=== PATIENT | male | born 1970 | race Caucasian/White ===

== ENCOUNTER 2019-05-20 07:45 | Inpatient (IN) | payer MEDICARE, SELFPAY ==
[2019-05-20] VITALS (8 sets, daily range): BP systolic 103–130; BP diastolic 66–79; PULSE 84–117; RESP 12–18; TEMP 36.6–37.4; O2SAT 96–99; BMI 22.3; BMI 20.9; BMI 21.0
--- NOTE | 2019-05-20 08:03 | CT_ITS ---
STUDY: CT ABDOMEN AND PELVIS WITHOUT CONTRAST REASON FOR EXAM: Male, 48 years old. Nausea, vomiting, diarrhea, cramping, elevated WBC. No prior abdomen surgery. Elevated creatinine. RADIATION DOSAGE (If Supplied By Facility): CTDIvol = ( 6.04 ) mGy, DLP = ( 309.57 ) mGycm TECHNIQUE: Transaxial images were obtained from the dome of the diaphragm to the symphysis pubis with oral contrast, and without intravenous contrast. Sagittal and coronal images were reconstructed. Individualized dose optimization techniques were used for this CT. COMPARISON: None. FINDINGS: Mild degree of increased markings at the right lung base suggestive of atelectasis. The visualized portions of the heart are within normal limits. There are several scattered well-defined hypodensities throughout both the right and left lobes of the liver suggestive of a cyst. Mild degree of increased attenuation is seen along the dependent portion of the gallbladder. This is suggestive of either tiny layering gallstones versus sludge. Normal spleen. Normal pancreas. Normal bilateral adrenal glands. Normal right kidney. Normal left kidney. Normal visualized stomach. Mildly dilated small bowel loops. Increased markings are seen in the mesenteric fat in the right lower quadrant and pelvis. The small bowel loops appear to be thickened and atelectasis at that site. There is also evidence of a 5.1 mm calcific density in the midpelvis. This may represent an appendicolith within a distended appendix. The differential diagnosis to consider should include the inflammatory bowel disease versus appendicitis. Delayed imaging of the pelvis is recommended. Normal colon. The appendix is visualized and appears normal. Normal abdominal aorta. Normal inferior vena cava. Normal retroperitoneum. Normal urinary bladder. There are prostatic calcifications. Normal abdominal wall. There are degenerative changes of the visualized lumbar spine. CT/Abdomen/Pelvis without Cont IMPRESSION: Findings in the right lower quadrant as described. The differential diagnosis should include appendicitis versus inflammatory bowel disease. A delayed CT scan to assess contrast migration is recommended. Electronically Signed: Chuy Galvan, at 10:02 EDT , Service support ,
--- NOTE | 2019-05-20 08:05 | ED.DCSUM_ITS ---
History of Present Illness Chief Complaint: Abd Pain Informant: Patient Narrative: Patient presents the emergency department with 3 days of diffuse abdominal cramping that is now pain.. He notes some nausea and vomiting. He denies diarrhea but states he has the runs. I asked him what the difference to him is. He tells me that the runs is when it is just water. He denies any fevers but does note sweats and chills. No blood in the stool or vomit. He states he has been experiencing muscle cramps in his arms and legs.. Past Medical History - Allergies and Home Meds Allergies/Adverse Reactions: Allergies No Known Allergies Allergy (Verified 05/20/19 07:50) Smoking Status: Current some day smoker Review of Systems General: Denies: Chills, Fever, Sweats Eyes: Denies: Visual changes - bilaterally, Diplopia ENT: Denies: Rhinorrhea, Sore throat Cardiovascular: Denies: Chest pain, Palpitations Respiratory: Denies: Dyspnea, Cough, Dyspnea on exertion Gastrointestinal: Reports: Abdominal pain, Nausea, Vomiting, Diarrhea. Denies: Melena, Hematochezia Genitourinary: Denies: Dysuria, Hematuria, Frequency Musculoskeletal: Reports: - - arm and leg muscle cramps. Denies: Back pain, Extremity Pain Skin: Denies: Rash, Wounds Neurological: Denies: Headache, Weakness, Numbness Physical Exam Vital Signs/Narrative: Vital Signs Temp Pulse Resp BP Pulse Ox 05/20/19 07:47 98 F 117 H 18 103/66 99 General: Well nourished, Well developed, No Acute Distress Head: Normocephalic, Atraumatic Eyes: Perrl, EOMI ENT: Moist mucous membranes, No rhinorrhea Neck: Supple, Nontender Cardiovascular: Regular rate, Regular rhythm, No murmurs Respiratory: No distress, CTA bilaterally, Chest nontender Abdomen: Soft, Nondistended, Normal bowel sounds, Tender - Mostly in the right lower quadrant suprapubic region, Guarding Back: Nontender, Normal Inspection Extremities: Nontender, No edema Skin: Normal color, No rash Neurological: Alert, Oriented x3, Cranial nerves II-XII grossly intact, Normal Strength, Normal Sensation Psychological: Normal affect, Normal Mood Diagnostic/Tx/Re-eval - Medical Decision Making Patient has a significant elevated white count of 21. He is in acute renal failure with a creatinine of [address] the pelvis done with oral contrast but not IV contrast. This was repeated with delayed films so we can try to add better identify the appendix. His history and CT to me is more consistent with an inflammatory bowel disease but I did discuss the case with on-call surgery. Plan is medical admission. He will be administered Zosyn after cultures as he had did have 4+ bacteria in the urine. ED Disposition - Plan for ED Patient: Disposition: Acute Care Hospital [facility] Diagnosis: Acute renal failure, Inflammatory bowel disease, Hyponatremia, Bacteria in urine
[2019-05-20 08:30] LABS: Absolute Lymphocyte Count 0.63 X10^3/uL (0.83-4.51); Absolute Neutrophil Count 19.5 X10^3/uL (2.0-7.7); Basophil# 0.03 X10^3/uL; Basophil% 0.1 % (0-1); Eosinophil# 0.01 X10^3/uL; Hematocrit 49.7 % (40-54); Hemoglobin 16.6 g/dL (13.0-16.5); Lymphocyte # 0.63 X10^3/ul (4.0); Lymphocyte % 2.9 % (19-41); Mean Corp Hgb Conc 33.4 g/dL (32-36); Mean Corpuscular Hgb 29.5 pg (27.0-32.0); Mean Corpuscular Volume 88.4 fL (80-94); Mean Platelet Vol. 9.6 fl (6.2-12.0); Monocyte# 1.23 X10^3/uL; Monocyte% 5.7 % (0-10); NRBC Flagged by Analyzer 0 % (0-5); Neutrophil # 19.51 X10^3/uL (2.7-7.7); Neutrophil % 90.7 % (47-70); Platelet Count 214 K/mm3 (150-450); RBC Distribution Width CV 13.3 % (11.6-14.6); RBC Distribution Width SD 43.5 fl (35.1-43.9); Red Blood Count 5.62 M/mm3 (4.6-6.2); White Blood Count 21.5 K/mm3 (4.4-11.0)
[2019-05-20] MEDS: 0.9% Normal Saline 1,000 ML 1000 ML IV (08:33)
[2019-05-20] MEDS: Morphine 4 MG/ML Syringe IV (08:33)
[2019-05-20] MEDS: Ondansetron 4 MG/2 ML Vial IV ×4 (08:33→23:39)
[2019-05-20 08:45] LABS: ALB/GLOB Ratio 0.8 RATIO (0.9-2.4); AST(SGOT) 24 U/L (15-37); Alanine Aminotransfer ALT/SGPT 27 U/L (16-61); Albumin, Serum 4.6 g/dL (3.2-5.0); Alkaline Phosphatase 84 U/L (45-117); Anion Gap 12 (5-15); BUN 42 mg/dL (7-18); BUN/Creat Ratio 10.3 RATIO (10-20); Calcium,Total 10.1 mg/dL (8.5-10.1); Chloride 93 mmol/L (98-107); Creatinine, Serum 4.08 mg/dL (0.70-1.30); EST Glomerular Filtration Rate 17 mL/min (>60); Est Glom Filt Rate - Afr Amer 20 mL/min (>60); Estimated Creatinine Clearance 22.73 ml/min; Globulin 5.7 g/dL (2.2-4.2); Glucose 137 mg/dL (74-106); Lipase 42 U/L (73-393); Potassium 3.3 mmol/L (3.5-5.1); Protein, Total 10.3 g/dL (6.4-8.2); Sodium Level 129 mmol/L (136-145)
[2019-05-20] MEDS: 0.9% Normal Saline 1,000 ML 250 ML IV ×2 (09:33→12:00)
[2019-05-20 10:25] LABS: Red Blood Cells-Urine 0 SEEN /hpf (0-5)
[2019-05-20 10:28] LABS: Color, Urine Yellow (Yellow); Glucose, Dipstick Normal (Normal); Ketone-Dipstick 5 mg/dl (Negative); Leukocyte Esterase-Dipstick 25 /ul (Negative); Nitrite-Dipstick Negative (Negative); Occult Blood-Urine 150 /ul (Negative); Protein-Dipstick 30 mg/dl (Negative); Specific Gravity, Urine 1.025 (1.002-1.030); Urine Clarity Cloudy (Clear); Urine Urobilinogen Normal (Normal)
[2019-05-20 10:46] LABS: Urine Bilirubin Dipstick 1 mg/dL (Negative)
[2019-05-20 10:49] LABS: Squamous Epithelial Cells - UA 0-5 SEEN /hpf (0-5); White Blood Cells 0-5 SEEN /hpf (0-5)
[2019-05-20 10:50] LABS: Hyaline Cast 10-25 SEEN /lpf (0-5)
[2019-05-20 10:51] LABS: Bacteria 4+ /hpf (None Seen); Fine Granular Cast- Urine 0-5 SEEN /lpf (0-5); Mucous, Urine 3+ /hpf (<or=2+)
--- NOTE | 2019-05-20 11:00 | CT_ITS ---
STUDY: CT PELVIS WITH CONTRAST REASON FOR EXAM: Male, 48 years old. ABDOMEN PAIN/DELAYS RADIATION DOSAGE (If Supplied By Facility): CTDIvol = ( 6.28 ) mGy, DLP = ( 191.27 ) mGycm TECHNIQUE: Transaxial imaging of the pelvis was performed without oral contrast. Oral and amp; IV Gastrografin and amp; was administered intravenously. Individualized dose optimization techniques were used for this CT. COMPARISON: Comparison is made with the prior examination and earlier today. FINDINGS: Normal urinary bladder. With again, the visualized small bowel loops are slightly dilated and distended. The small bowel loops seen in the right lower quadrant as well as in the pelvis have a thickened wall. They appear edematous. Once again, focal calcification is seen in the mid pelvis. This may represent an appendicolith. Once again, the differential diagnosis to consider should include the inflammatory bowel disease versus appendicitis. Normal visualized colon. There is no pelvic fluid. There is no pelvic lymphadenopathy or mass lesion. Normal visualized pelvic arteries. Normal abdominal wall. Normal osseous structures. CT/Limited or Localized F/U CT IMPRESSION: There is evidence of a small bowel dilatation as well as thickening of the mucosa and the small bowel wall in several small bowel loops in the pelvis and right lower quadrant with increased markings in the surrounding peritoneal fat. The differential diagnosis to consider should include inflammatory bowel disease such as Crohn versus appendicitis. Electronically Signed: Chuy Galvan, at 11:21 EDT , Service support ,
--- NOTE | 2019-05-20 11:51 | NURSING ---
DR ANDUJAR FOR DR FLORES
--- NOTE | 2019-05-20 12:32 | PCM.CONS.GEN ---
Problem List (1) Abdominal pain Status: Acute Qualifiers: Abdominal location: generalized Qualified Code(s): R10.84 - Generalized abdominal pain (2) Tobacco abuse Status: Acute (3) Chronic anxiety Status: Chronic (4) COPD (chronic obstructive pulmonary disease) Status: Chronic Qualifiers: Emphysema type: unspecified Reason for Consult Date of Consultation: 05/20/19 History of Present Illness: The patient is a 48 year old M who presents to the emergency room with a 4-day history of abdominal pain. States he has not been eating or drinking. It was a mid abdomen generalized pain followed quickly by fever and chills 4 days ago. The pain is persisted. He is only had small amount of liquidy stool. He has not had any previous abdominal surgery. He denies family history of inflammatory bowel disease. White blood cell count 21.5 with a hemoglobin elevated 16.6 and hematocrit of 49.7 with a platelet count of 214,000. 90% neutrophils. Sodium is low at 129. Potassium is low at 3.3. Chloride is low at 93. BUN is elevated at 42 with a creatinine of 4.08. Estimated GFR of 17. Liver function tests are normal except for total protein of 10.3. Albumin is 4.6. Lipase is 42. Urine is yellow cloudy with spec gravity of 30. A CT scan with oral contrast and delayed imaging was obtained. There is evidence of small bowel dilatation as well as thickening of the mucosa in several small bowel loops in the pelvis and right lower quadrant with increased markings in the surrounding peritoneal fat. Differential diagnosis was offered to suggest inflammatory bowel disease such as Crohn's. Because there is also felt to be an appendicolith although no distinct other findings of the appendix or appendicitis it was felt that appendicitis should be excluded. Past Medical History Past Medical History (Chronic Problems): Chronic Problems Chronic anxiety (Chronic) COPD (chronic obstructive pulmonary disease) (Chronic) Allergies No Known Allergies Allergy (Verified 05/20/19 07:50) Home Medications: Ambulatory Orders Medication Instructions Recorded Amitriptyline HCl 75 mg PO QHS PRN 05/20/19 Clonazepam [Klonopin] 1 mg PO Q8H PRN 05/20/19 Duloxetine HCl 30 mg PO DAILY 05/20/19 Surgical History: no surgical history Smoking Status: Current every day smoker Review of Systems Constitutional: Reports: Anorexia, Chills, Fever, Night Sweats, Malaise HEENT: Denies: Difficulty Swallowing Respiratory: Reports: Cough, - - Chronic dry cough. Denies: Shortness of Breath Gastrointestinal: Reports: Abdominal Pain, Diarrhea. Denies: Melena Psychiatric: Reports: Anxiety Patient Problems: Active and Suspected Problems Acute renal failure (Acute) Inflammatory bowel disease (Acute) Hyponatremia (Acute) Bacteria in urine (Acute) Abdominal pain (Acute) Tobacco abuse (Acute) - Physical Exam Vitals/I&O's: Vital Signs Temp Pulse Resp BP Pulse Ox 97.8 F 105 H 15 130/73 H 97 05/20/19 12:19 05/20/19 12:19 05/20/19 12:19 05/20/19 12:19 05/20/19 12:19 Oxygen Delivery Method Room Air Weight: 160 lb Body Mass Index (BMI) 22.3 Intake and Output for Last 24 Hours 05/18/19 05/19/19 05/20/19 23:59 23:59 23:59 Intake Total 1612.5 / 1612.5 Balance 1612.5 / 1612.5 General: Alert, Oriented x3, Cooperative, No apparent distress HEENT: Atraumatic Oral: Dry Mucosa Lungs: - - Increased anterior posterior diameter, diminished respiratory excursion, scattered infrequent wheeze Cardiovascular: Regular rate, Regular Rhythm Abdomen: Bowel Sounds Not Present, Distended, Tender Extremities: No Calf Tenderness Psych/Mental Status: Normal Affect Laboratory Results 05/20/19 08:20: WBC 21.5 H, RBC 5.62, Hgb 16.6 H, Hct 49.7, MCV 88.4, MCH 29.5, MCHC 33.4, RDW Std Deviation 43.5, RDW Coeff of Manuela 13.3, Plt Count 214, MPV 9.6, Immature Gran % (Auto) 0.600, Neut % (Auto) 90.7 H, Lymph % (Auto) 2.9 L, [place] % (Auto) 5.7, Eos % (Auto) 0.0, Baso % (Auto) 0.1, Absolute Neuts (auto) 19.5 H, Absolute Lymphs (auto) 0.63 L, Nucleated RBC % 0 05/20/19 08:20: Sodium 129 L, Potassium 3.3 L, Chloride 93 L, Carbon Dioxide 24.0, Anion Gap 12, BUN 42 H, Creatinine 4.08 H, Estim Creat Clear Calc 22.73, Est GFR (MDRD) Af Amer 20 L, Est GFR (MDRD) Non-Af 17 L, BUN/Creatinine Ratio 10.3, Glucose 137 H, Calcium 10.1, Total Bilirubin 0.70, AST 24, ALT 27, Alkaline Phosphatase 84, Total Protein 10.3 H, Albumin 4.6, Globulin 5.7 H, Albumin/Globulin Ratio 0.8 L, Lipase 42 L 05/20/19 10:20: Urine Color Yellow, Urine Clarity Cloudy, Urine pH 5.0, Ur Specific [place] 1.025, Urine Protein 30 H, Urine Glucose (UA) Normal, Urine Ketones 5 H, Urine Occult Blood 150 H, Urine Nitrite Negative, Urine Bilirubin 1 H, Urine Urobilinogen Normal, Ur Leukocyte Esterase 25 H, Urine RBC 0 SEEN, Urine WBC 0-5 SEEN, Ur Squamous Epith Cells 0-5 SEEN, Urine Bacteria 4+, Hyaline Casts 10-25 SEEN, Fine Granular Casts 0-5 SEEN, Urine Mucus 3+ Current Medications Sodium Chloride () 1,000 mls @ 250 mls/hr IV .Q4H [facility] Last Admin: 05/20/19 12:00 Dose: 250 mls/hr Documented by: Assessment/Plan All Active Problems Acute renal failure (Acute) Inflammatory bowel disease (Acute) Hyponatremia (Acute) Bacteria in urine (Acute) Abdominal pain (Acute) Tobacco abuse (Acute) I have carefully reviewed the patient's 4-day course of presentation and CT imaging. Although I would concur that there may be an appendicolith present there is no evidence of free fluid or abscess. The majority of the presentation appears to be involving the small bowel with significant thickening of small bowel wall. I suspect that this is a primary enteritis of undetermined etiology. I have a lesser degree of suspicion that this is a complication of acute appendicitis. I am not seeing evidence of free peritoneal fluid or abscess. Do not believe that he requires surgical intervention at this time. Clearly he has significant abnormalities with acute renal insufficiency probably secondary to severe dehydration as well as hyponatremia and hyper chloremia and hypo-kalemia. He is at increased risk for DVT secondary to his COPD chronic excessive tobacco use and severe dehydration. I would recommend pharmacologic and sequential venous compression devices as a means of DVT prophylaxis. Recommend aggressive hydration and electrolyte correction. Recommend antibiotic management. We will follow with you. Silvestre Urias M.D., F.A.C.S.
--- NOTE | 2019-05-20 12:44 | ED.RN ---
dr consulted about sepsis alert. dr states he is not a sepsis patient. floor called and notified of discussion. della berg rn [id number]
[2019-05-20] MEDS: Morphine 2 MG/ML Syringe IV ×3 (14:07→23:39)
--- NOTE | 2019-05-20 16:44 | PCM.HP.STD ---
History of Present Illness Date of Admission: 05/20/19 Chief Complaint: Nausea, vomiting, diarrhea The patient is a 48 year old M with a PMH as below who presents with 3 days of nausea, vomiting, diarrhea. He started having crampy abdominal pain and then started having significant diarrhea. He denies having any fevers or chills. He has had some diaphoresis but otherwise he presented to the ER today because he has not had any improvement in his symptoms. He denies any sick contacts, but in the ER he had an elevated white count to 21.5 and also new onset renal failure with a creatinine of 4.08. There is no previous lab work to compare. Also CT scan of his abdomen pelvis initially showed possible appendicitis versus small bowel inflammation however a repeat CT scan after further contrast had not had time to transit through the intestines, shows a lack of significant appendicitis and more inflammatory small bowel disease. Past Medical History Past Medical History (Chronic Problems): Chronic Problems Chronic anxiety (Chronic) COPD (chronic obstructive pulmonary disease) (Chronic) Allergies No Known Allergies Allergy (Verified 05/20/19 07:50) Home Medications: Ambulatory Orders Medication Instructions Recorded Amitriptyline HCl 75 mg PO QHS PRN 05/20/19 Clonazepam [Klonopin] 1 mg PO Q8H PRN 05/20/19 Duloxetine HCl 30 mg PO DAILY 05/20/19 Surgical History: no surgical history Smoking Status: Current every day smoker Tobacco Use: Cigarettes Alcohol: None Drugs: None - *Family History Maternal History Items: Cancer Paternal History Items: Cancer, Heart Disease Review of Systems Constitutional: Denies: Chills, Fever, Weight Change HEENT: Denies: Head Aches, Sinus Congestion, Sinus Drainage Cardiovascular: Denies: Chest Pain, Palpitations Respiratory: Denies: Cough, Shortness of breath at rest, Sputum production Gastrointestinal: Reports: Abdominal Pain, Diarrhea, Nausea, Vomiting Genitourinary: Denies: Dysuria Musculoskeletal: Denies: Joint Pain, Joint Tenderness Skin: Denies: Rash, Wounds Neurological: Denies: Numbness, Tingling, Focal weakness Psychiatric: Denies: Anxiety, Depression Hematologic/ Lymphatic: Denies: Easy Bruising, Easy Bleeding VTE Information - Inpt Only VTE Present on Admission: No Patient Problems: Active and Suspected Problems Acute renal failure (Acute) Inflammatory bowel disease (Acute) Hyponatremia (Acute) Bacteria in urine (Acute) Abdominal pain (Acute) Tobacco abuse (Acute) - Physical Exam Vitals/I&O's: Vital Signs Temp Pulse Resp BP Pulse Ox 99.1 F 93 16 114/79 98 05/20/19 13:41 05/20/19 13:41 05/20/19 13:41 05/20/19 13:41 05/20/19 13:41 Oxygen Delivery Method Room Air Weight: 146 lb 6.191 oz Body Mass Index (BMI) 20.9 Intake and Output for Last 24 Hours 05/18/19 05/19/19 05/20/19 23:59 23:59 23:59 Intake Total 2683.33 / 2683.33 Balance 2683.33 / 2683.33 General: Alert, Oriented x3, Cooperative, No apparent distress HEENT: Atraumatic, PERRLA, EOMI, Normocephalic Oral: Dry Mucosa Neck: Supple, No JVD Lungs: Clear to auscultation, Normal air movement, No rhonchi, No wheeze, No rales Cardiovascular: Regular rate, Regular Rhythm, Normal S1, Normal S2, No murmurs Abdomen: Soft, Non Tender, Non-Distended, No Hepato-splenomegaly Extremities: No edema, Capillary Refill Less than 3 Seconds Skin: No rashes, No breakdown Neurological: Neuro grossly intact, Sensory exam intact to light touch and pain Psych/Mental Status: Normal Affect, Appropriate Laboratory Results 05/20/19 08:20: WBC 21.5 H, RBC 5.62, Hgb 16.6 H, Hct 49.7, MCV 88.4, MCH 29.5, MCHC 33.4, RDW Std Deviation 43.5, RDW Coeff of Manuela 13.3, Plt Count 214, MPV 9.6, Immature Gran % (Auto) 0.600, Neut % (Auto) 90.7 H, Lymph % (Auto) 2.9 L, [place] % (Auto) 5.7, Eos % (Auto) 0.0, Baso % (Auto) 0.1, Absolute Neuts (auto) 19.5 H, Absolute Lymphs (auto) 0.63 L, Nucleated RBC % 0 05/20/19 08:20: Sodium 129 L, Potassium 3.3 L, Chloride 93 L, Carbon Dioxide 24.0, Anion Gap 12, BUN 42 H, Creatinine 4.08 H, Estim Creat Clear Calc 22.73, Est GFR (MDRD) Af Amer 20 L, Est GFR (MDRD) Non-Af 17 L, BUN/Creatinine Ratio 10.3, Glucose 137 H, Calcium 10.1, Total Bilirubin 0.70, AST 24, ALT 27, Alkaline Phosphatase 84, Total Protein 10.3 H, Albumin 4.6, Globulin 5.7 H, Albumin/Globulin Ratio 0.8 L, Lipase 42 L 05/20/19 10:20: Urine Color Yellow, Urine Clarity Cloudy, Urine pH 5.0, Ur Specific Melvin 1.025, Urine Protein 30 H, Urine Glucose (UA) Normal, Urine Ketones 5 H, Urine Occult Blood 150 H, Urine Nitrite Negative, Urine Bilirubin 1 H, Urine Urobilinogen Normal, Ur Leukocyte Esterase 25 H, Urine RBC 0 SEEN, Urine WBC 0-5 SEEN, Ur Squamous Epith Cells 0-5 SEEN, Urine Bacteria 4+, Hyaline Casts 10-25 SEEN, Fine Granular Casts 0-5 SEEN, Urine Mucus 3+ Current Medications Enoxaparin Sodium (Lovenox) 30 mg SC DAILY@0600 [facility] Sodium Chloride () 1,000 mls @ 125 mls/hr IV .Q8H [facility] Last Admin: 05/20/19 14:39 Dose: Not Given Documented by: Piperacillin Sod/Tazobactam (Sod 3.375 gm/ Sodium Chloride) 50 mls @ 12.5 mls/hr IV Q8 [facility] Sodium Chloride () 250 mls @ 15 mls/hr IV .[id number] PRN PRN Reason: Saline Flush Melatonin (Melatonin) 3 mg PO QHS PRN PRN PRN Reason: INSOMNIA Morphine Sulfate () 2 mg IV Q3H PRN PRN PRN Reason: Pain Score 6-10/10 Last Admin: 05/20/19 14:07 Dose: 2 mg Documented by: Nicotine (Nicoderm Cq (Pbkc)) 14 mg TRANSDERM. DAILY [facility] Ondansetron HCl (Zofran) 4 mg IV Q8H PRN PRN PRN Reason: NAUSEA/VOMITING Sodium Chloride () 10 - 40 ml IV UD PRN PRN Reason: SALINE FLUSH Assessment/Plan All Active Problems Acute renal failure (Acute) Inflammatory bowel disease (Acute) Hyponatremia (Acute) Bacteria in urine (Acute) Abdominal pain (Acute) Tobacco abuse (Acute) 1. Sepsis secondary to gastroenteritis versus appendicitis versus IBD/UTI/acute renal failure -It is a 3 to 6-day wait for fecal calprotectin, will proceed with an enteric stool pathogen as well as lactoferrin and WBC count -Continue with IV Zosyn, he does have a potential UTI but the culture is pending -Continue with IV fluids, he received 2 L fluid boluses in the ER and was started on 125 cc/h of IV fluids -CT scan of the abdomen showed a possible appendicolith however on my read I see no fluid to indicate appendicitis, the terminal ileum appears significantly edematous -We will make him n.p.o. except for sips and chips -There is some concern for Crohn's disease though he is in the wrong age group and does not have a family history for -Cultures are pending -Continue with IV morphine -Appreciate surgical assistance 2. PTSD -He was reluctant to discuss from what, but he does state that he talks with his psychiatrist regularly -Continue with his home medications VTE: SCDs and Lovenox Inpatient E&M: 80236 Init Hosp L3
[2019-05-20] MEDS: Enoxaparin 30 MG/0.3 ML Syringe SC (16:48)
[2019-05-20] MEDS: 0.9% Normal Saline 1,000 ML 999 ML IV (18:00)
[2019-05-20] MEDS: 0.9% Normal Saline 1,000 ML 125 ML IV (20:33)
[2019-05-20] MEDS: Phenol/Sodium Phenolate 180ML 2 SPRAY MUCOUS MEM (23:39)
[2019-05-21 04:05] VITALS: BP 127/87; PULSE 67; RESP 18; TEMP 37.2; O2SAT 100
[2019-05-21] MEDS: 0.9% Normal Saline 1,000 ML 125 ML IV ×2 (04:14→11:41)
[2019-05-21] MEDS: Morphine 2 MG/ML Syringe IV ×5 (04:14→21:27)
--- NOTE | 2019-05-21 05:55 | PN.SURG_ITS ---
Patient Problems: Active and Suspected Problems Acute renal failure (Acute) Inflammatory bowel disease (Acute) Hyponatremia (Acute) Bacteria in urine (Acute) Abdominal pain (Acute) Tobacco abuse (Acute) Subjective: Patient states that for the first night in 4-5 nights he has been able to sleep. He still has pain. He has been able to urinate although it is dark. He did have some slight loose stool last night. The highest temperature recorded is 99.3. Heart rate is now down to 67. Blood pressure stable. At least 350 cc of urine output recorded. Today's laboratory pending - Physical Exam Vitals/I&O's: Vital Signs Temp Pulse Resp BP Pulse Ox 98.9 F 67 18 127/87 H 100 05/21/19 04:05 05/21/19 04:05 05/21/19 04:05 05/21/19 04:05 05/21/19 04:05 Oxygen Delivery Method Room Air Weight: 146 lb 6.191 oz Body Mass Index (BMI) 20.9 Intake and Output for Last 24 Hours 05/19/19 05/20/19 05/21/19 23:59 23:59 23:59 Intake Total 3803.33 / 3803.33 1008.33 / 1008.33 Output Total 600 / 600 100 / 100 Balance 3203.33 / 3203.33 908.33 / 908.33 Abdomen: Bowel Sounds Not Present, Distended, Tender Microbiology Past 72 Hours 05/20/19 23:00 Stool Stool Lactoferrin - Final Laboratory Results 05/20/19 08:20: WBC 21.5 H, RBC 5.62, Hgb 16.6 H, Hct 49.7, MCV 88.4, MCH 29.5, MCHC 33.4, RDW Std Deviation 43.5, RDW Coeff of Manuela 13.3, Plt Count 214, MPV 9.6, Immature Gran % (Auto) 0.600, Neut % (Auto) 90.7 H, Lymph % (Auto) 2.9 L, [place] % (Auto) 5.7, Eos % (Auto) 0.0, Baso % (Auto) 0.1, Absolute Neuts (auto) 19.5 H, Absolute Lymphs (auto) 0.63 L, Nucleated RBC % 0 05/20/19 08:20: Sodium 129 L, Potassium 3.3 L, Chloride 93 L, Carbon Dioxide 24.0, Anion Gap 12, BUN 42 H, Creatinine 4.08 H, Estim Creat Clear Calc 22.73, Est GFR (MDRD) Af Amer 20 L, Est GFR (MDRD) Non-Af 17 L, BUN/Creatinine Ratio 10.3, Glucose 137 H, Calcium 10.1, Total Bilirubin 0.70, AST 24, ALT 27, Alkaline Phosphatase 84, Total Protein 10.3 H, Albumin 4.6, Globulin 5.7 H, Albumin/Globulin Ratio 0.8 L, Lipase 42 L 05/20/19 10:20: Urine Color Yellow, Urine Clarity Cloudy, Urine pH 5.0, Ur Specific [place] 1.025, Urine Protein 30 H, Urine Glucose (UA) Normal, Urine Ketones 5 H, Urine Occult Blood 150 H, Urine Nitrite Negative, Urine Bilirubin 1 H, Urine Urobilinogen Normal, Ur Leukocyte Esterase 25 H, Urine RBC 0 SEEN, Urine WBC 0-5 SEEN, Ur Squamous Epith Cells 0-5 SEEN, Urine Bacteria 4+, Hyaline Casts 10-25 SEEN, Fine Granular Casts 0-5 SEEN, Urine Mucus 3+ Current Medications Enoxaparin Sodium (Lovenox) 30 mg SC DAILY@0600 [facility] Last Admin: 05/20/19 16:48 Dose: 30 mg Documented by: Sodium Chloride () 1,000 mls @ 125 mls/hr IV .Q8H [facility] Last Admin: 05/21/19 04:14 Dose: 125 mls/hr Documented by: Piperacillin Sod/Tazobactam (Sod 3.375 gm/ Sodium Chloride) 50 mls @ 12.5 mls/hr IV Q8 [facility] Last Infusion: 05/21/19 01:54 Dose: Infused Documented by: Sodium Chloride () 250 mls @ 15 mls/hr IV .[id number] PRN PRN Reason: Saline Flush Last Infusion: 05/21/19 01:54 Dose: 15 mls/hr Documented by: Melatonin (Melatonin) 3 mg PO QHS PRN PRN PRN Reason: INSOMNIA Morphine Sulfate () 2 mg IV Q3H PRN PRN PRN Reason: Pain Score 6-10/10 Last Admin: 05/21/19 04:14 Dose: 2 mg Documented by: Nicotine (Nicoderm Cq (Pbkc)) 14 mg TRANSDERM. DAILY [facility] Last Admin: 05/20/19 16:47 Dose: 14 mg Documented by: Ondansetron HCl (Zofran) 4 mg IV Q6H PRN PRN PRN Reason: NAUSEA/VOMITING Last Admin: 05/20/19 23:39 Dose: 4 mg Documented by: Phenol/Menthol (Chloraseptic (Bkc)) 2 spray MUCOUS MEM Q2H PRN PRN PRN Reason: SORE THROAT Last Admin: 05/20/19 23:39 Dose: 2 sprays Documented by: Sodium Chloride () 10 - 40 ml IV UD PRN PRN Reason: SALINE FLUSH Medical Necessity - Tobacco Use Smoking Status: Current every day smoker Tobacco Use: Cigarettes Assessment/Plan All Active Problems Acute renal failure (Acute) Inflammatory bowel disease (Acute) Hyponatremia (Acute) Bacteria in urine (Acute) Abdominal pain (Acute) Tobacco abuse (Acute) Diffusely tender throughout his abdomen more so in the right lower quadrant. Absent bowel sounds. However clinically the patient appears more comfortable. Laboratory and stool analysis pending. The patient is asking for a carbonated beverage which at the moment I have declined until his laboratory returns. If his leukocytosis is improve then could consider starting clear liquids but I would strongly not recommend carbonated beverages. At this time I still do not consider his having an acute surgical abdomen nor an acute surgical process. We will continue to follow and assist at this time. Silvestre Urias M.D., F.A.C.S.
[2019-05-21 06:08] LABS: Absolute Lymphocyte Count 0.32 X10^3/uL (0.83-4.51); Absolute Neutrophil Count 9.8 X10^3/uL (2.0-7.7); Basophil# 0.01 X10^3/uL; Basophil% 0.1 % (0-1); Eosinophil# 0.21 X10^3/uL; Eosinophils% 1.9 % (0-5); Hemoglobin 13.3 g/dL (13.0-16.5); Lymphocyte # 0.32 X10^3/ul (4.0); Lymphocyte % 2.9 % (19-41); Mean Corp Hgb Conc 34.1 g/dL (32-36); Mean Corpuscular Hgb 30.4 pg (27.0-32.0); Mean Corpuscular Volume 89.2 fL (80-94); Monocyte# 0.86 X10^3/uL; Monocyte% 7.7 % (0-10); NRBC Flagged by Analyzer 0 % (0-5); Neutrophil # 9.77 X10^3/uL (2.7-7.7); POSITIVE DIFFERENTIAL YES; POSITIVE MORPHOLOGY YES; Platelet Count 160 K/mm3 (150-450); RBC Distribution Width CV 13.5 % (11.6-14.6); RBC Distribution Width SD 44.3 fl (35.1-43.9); Red Blood Count 4.37 M/mm3 (4.6-6.2); White Blood Count 11.2 K/mm3 (4.4-11.0)
[2019-05-21 06:14] LABS: Differential Indicated SCAN CRITERIA MET
[2019-05-21 06:21] LABS: Erythrocyte Sedimentation Rate 46 mm/hr (0-15)
[2019-05-21 08:00] LABS: Anion Gap 6 (5-15); BUN 20 mg/dL (7-18); BUN/Creat Ratio 22.2 RATIO (10-20); Calcium,Total 8.1 mg/dL (8.5-10.1); Chloride 112 mmol/L (98-107); EST Glomerular Filtration Rate 95 mL/min (>60); Est Glom Filt Rate - Afr Amer 115 mL/min (>60); Estimated Creatinine Clearance 94.27 ml/min; Glucose 107 mg/dL (74-106); Potassium 3.8 mmol/L (3.5-5.1); Sodium Level 141 mmol/L (136-145)
[2019-05-21 09:15] VITALS: BP 124/71; PULSE 80; RESP 18; TEMP 36.7; O2SAT 97
--- NOTE | 2019-05-21 09:30 | PN_ITS ---
Patient Problems: Active and Suspected Problems Acute renal failure (Acute) Inflammatory bowel disease (Acute) Hyponatremia (Acute) Bacteria in urine (Acute) Abdominal pain (Acute) Tobacco abuse (Acute) Subjective: Feeling better today, was able to get some sleep last night. Abdominal pain is still present though not as severe Vitals/I&O's: Vital Signs Temp Pulse Resp BP Pulse Ox 98.9 F 67 18 127/87 H 100 05/21/19 04:05 05/21/19 04:05 05/21/19 04:05 05/21/19 04:05 05/21/19 04:05 Oxygen Delivery Method Room Air Weight: 146 lb 6.191 oz Body Mass Index (BMI) 20.9 Intake and Output for Last 24 Hours 05/19/19 05/20/19 05/21/19 23:59 23:59 23:59 Intake Total 3803.33 / 3803.33 1070.33 / 1070.33 Output Total 600 / 600 100 / 100 Balance 3203.33 / 3203.33 970.33 / 970.33 General: Alert, Oriented x3, Cooperative, No apparent distress HEENT: Atraumatic, PERRLA, EOMI, Normocephalic Oral: Dry Mucosa Neck: Supple, No JVD Lungs: Clear to auscultation, Normal air movement, No rhonchi, No wheeze, No rales Cardiovascular: Regular rate, Regular Rhythm, Normal S1, Normal S2, No murmurs Abdomen: Soft, very mildly tender to RLQ, Non-Distended, No Hepato-splenomegaly Extremities: No edema, Capillary Refill Less than 3 Seconds Skin: No rashes, No breakdown Neurological: Neuro grossly intact, Sensory exam intact to light touch and pain Psych/Mental Status: Normal Affect, Appropriate Microbiology Past 72 Hours 05/20/19 23:00 Stool Stool Lactoferrin - Final Laboratory Results 05/20/19 10:20: Urine Color Yellow, Urine Clarity Cloudy, Urine pH 5.0, Ur Specific [place] 1.025, Urine Protein 30 H, Urine Glucose (UA) Normal, Urine Ketones 5 H, Urine Occult Blood 150 H, Urine Nitrite Negative, Urine Bilirubin 1 H, Urine Urobilinogen Normal, Ur Leukocyte Esterase 25 H, Urine RBC 0 SEEN, Urine WBC 0-5 SEEN, Ur Squamous Epith Cells 0-5 SEEN, Urine Bacteria 4+, Hyaline Casts 10-25 SEEN, Fine Granular Casts 0-5 SEEN, Urine Mucus 3+ 05/21/19 05:40: WBC 11.2 H, RBC 4.37 L, Hgb 13.3, Hct 39.0 L, MCV 89.2, MCH 30.4, MCHC 34.1, RDW Std Deviation 44.3 H, RDW Coeff of Manuela 13.5, Plt Count 160, MPV 10.0, Immature Gran % (Auto) 0.400, Neut % (Auto) 87.0 H, Lymph % (Auto) 2.9 L, [place] % (Auto) 7.7, Eos % (Auto) 1.9, Baso % (Auto) 0.1, Absolute Neuts (auto) 9.8 H, Absolute Lymphs (auto) 0.32 L, Nucleated RBC % 0, Differential Comment 05/21/19 05:40: Sodium Cancelled, Potassium Cancelled, Chloride Cancelled, Carbon Dioxide Cancelled, Anion Gap Cancelled, BUN Cancelled, Creatinine Cancelled, Estim Creat Clear Calc Cancelled, Est GFR (MDRD) Af Amer Cancelled, Est GFR (MDRD) Non-Af Cancelled, BUN/Creatinine Ratio Cancelled, Glucose Cancelled, Calcium Cancelled 05/21/19 05:40: ESR 46 H 05/21/19 07:16: Sodium 141, Potassium 3.8, Chloride 112 H, Carbon Dioxide 23.0, Anion Gap 6, BUN 20 H, Creatinine 0.90, Estim Creat Clear Calc 94.27, Est GFR (MDRD) Af Amer 115, Est GFR (MDRD) Non-Af 95, BUN/Creatinine Ratio 22.2 H, Glucose 107 H, Calcium 8.1 L Current Medications Enoxaparin Sodium (Lovenox) 30 mg SC DAILY@0600 [facility] Last Admin: 05/21/19 06:02 Dose: Not Given Documented by: Sodium Chloride () 1,000 mls @ 125 mls/hr IV .Q8H [facility] Last Admin: 05/21/19 04:14 Dose: 125 mls/hr Documented by: Piperacillin Sod/Tazobactam (Sod 3.375 gm/ Sodium Chloride) 50 mls @ 12.5 mls/hr IV Q8 [facility] Last Admin: 05/21/19 06:01 Dose: 12.5 mls/hr Documented by: Sodium Chloride () 250 mls @ 15 mls/hr IV .[id number] PRN PRN Reason: Saline Flush Last Infusion: 05/21/19 06:02 Dose: 0 mls/hr Documented by: Melatonin (Melatonin) 3 mg PO QHS PRN PRN PRN Reason: INSOMNIA Morphine Sulfate () 2 mg IV Q3H PRN PRN PRN Reason: Pain Score 6-10/10 Last Admin: 05/21/19 09:15 Dose: 2 mg Documented by: Nicotine (Nicoderm Cq (Pbkc)) 14 mg TRANSDERM. DAILY [facility] Last Admin: 05/21/19 09:09 Dose: 14 mg Documented by: Ondansetron HCl (Zofran) 4 mg IV Q6H PRN PRN PRN Reason: NAUSEA/VOMITING Last Admin: 05/20/19 23:39 Dose: 4 mg Documented by: Phenol/Menthol (Chloraseptic (Bkc)) 2 spray MUCOUS MEM Q2H PRN PRN PRN Reason: SORE THROAT Last Admin: 05/20/19 23:39 Dose: 2 sprays Documented by: Sodium Chloride () 10 - 40 ml IV UD PRN PRN Reason: SALINE FLUSH Medical Necessity - Tobacco Use Smoking Status: Current every day smoker Tobacco Use: Cigarettes Assessment/Plan All Active Problems Acute renal failure (Acute) Inflammatory bowel disease (Acute) Hyponatremia (Acute) Bacteria in urine (Acute) Abdominal pain (Acute) Tobacco abuse (Acute) 1. Sepsis secondary to gastroenteritis versus appendicitis versus IBD/UTI/acute renal failure -It is a 3 to 6-day wait for fecal calprotectin, will proceed with an enteric stool pathogen -Continue with IV Zosyn, he does have a potential UTI but the culture is pending -Continue with IV fluids, he received 2 L fluid boluses in the ER and was started on 125 cc/h of IV fluids -CT scan of the abdomen showed a possible appendicolith however on my read I see no fluid to indicate appendicitis, the terminal ileum appears significantly edematous -We will make him n.p.o. except for sips and chips -There is some concern for Crohn's disease though he is in the wrong age group and does not have a family history for -Cultures are pending, stool lactoferrin is positive -Continue with IV morphine -Appreciate surgical assistance 2. PTSD -He was reluctant to discuss from what, but he does state that he talks with his psychiatrist regularly -Continue with his home medications VTE: SCDs and Lovenox Inpatient E&M: 81227 Subs Hosp L2
--- NOTE | 2019-05-21 11:15 | CASEMGMT ---
Due to being in isolation, RN LUIS ALFREDO called and spoke with patient via phone, for initial transition planning/care coordination assessment. RN LUIS ALFREDO introduced self and role at [facility]. Patient alert and oriented. Patient willing to participate in assessment and is able to answer all questions appropriately. Care providers, pharmacy, and demographics verified. Patient wishes to discharge home, denies need for home health at this time. Patient states he has no further needs or concerns at this time. CM to follow for discharge planning needs that may arise. PCP: none, list given to floor nurse to provide to patient, patient notified Specialists: none [facility]erred [facility]acy[facility] Insurance: [facility] Prescription Benefit: yes Living Will/HPOA: none LNOK: parents Living Arrangements: Patient lives alone in upstairs apartment. Patient states he is independent at home. Transportation: self/parents DME/HHC: Patient states he has a cane, denied need for further DME. No previous HHC. Disposition Plan: Patient to discharge home with family support and follow-up plans in place. Alana KONG, RN, CM
[2019-05-21 13:30] VITALS: BP 120/72; PULSE 69; RESP 18; TEMP 36.9; O2SAT 99
[2019-05-21 21:07] VITALS: BP 114/75; PULSE 86; RESP 17; TEMP 37.3; O2SAT 96
[2019-05-22] MEDS: 0.9% Normal Saline 1,000 ML 100 ML IV ×2 (00:04→15:24)
[2019-05-22] MEDS: Morphine 2 MG/ML Syringe IV ×4 (01:01→20:51)
[2019-05-22 02:06] VITALS: BP 123/76; PULSE 74; RESP 18; TEMP 37.2; O2SAT 97
--- NOTE | 2019-05-22 05:56 | RAD_ITS ---
HISTORY: C/O LT SIDED ABD PAIN EXAMINATION/TECHNIQUE: XR Abdomen supine and upright 3 views COMPARISON: CT abdomen and pelvis 05/20/2019 FINDINGS: No free intraperitoneal air. Dilated gas and fluid-filled small bowel loops with numerous air-fluid levels at different heights is seen with small bowel obstruction. Suspected small bowel obstruction appears to still. No gas is seen within the colon and the colon is nondilated. No soft tissue mass identified. RAD/Abd Inc Decub and/or Erect IMPRESSION: Findings in keeping with a distal high-grade small bowel obstruction. By history, no recent surgery. at 0741 Reported and signed by: Bradford Nuno MD N.B. : The above information has been verbally conveyed by Bradford Nuno to Loli Sunshine;[phone], RN, on 05/22/2019 07:40:57 (ET). Electronically Signed: Bradford Nuno, at 7:40 EDT Tel , Service support ,
--- NOTE | 2019-05-22 05:58 | PN.SURG_ITS ---
Patient Problems: Active and Suspected Problems Acute renal failure (Acute) Inflammatory bowel disease (Acute) Hyponatremia (Acute) Bacteria in urine (Acute) Abdominal pain (Acute) Tobacco abuse (Acute) Subjective: Pt c/o increased abdominal pain LUQ Minimal stool - Physical Exam Vitals/I&O's: Vital Signs Temp Pulse Resp BP Pulse Ox 98.9 F 74 18 123/76 H 97 05/22/19 02:06 05/22/19 02:06 05/22/19 02:06 05/22/19 02:06 05/22/19 02:06 Oxygen Delivery Method Room Air Weight: 146 lb 6.191 oz Body Mass Index (BMI) 20.9 Intake and Output for Last 24 Hours 05/20/19 05/21/19 05/22/19 23:59 23:59 23:59 Intake Total 3803.33 / 3803.33 3910.83 / 3910.83 270 / 270 Output Total 600 / 600 100 / 100 Balance 3203.33 / 3203.33 3810.83 / 3810.83 270 / 270 General: Alert, - - appears uncomfortable Oral: Moist Mucosa Abdomen: Hypoactive Bowel Sounds, Distended, Tender Microbiology Past 72 Hours 05/20/19 23:00 Stool Enteric Bacteriology - Final 05/20/19 10:20 Urine, Clean Catch Urine Culture - Preliminary Culture exhibits no growth. 05/20/19 23:00 Stool Stool Lactoferrin - Final Laboratory Results 05/21/19 05:40: WBC 11.2 H, RBC 4.37 L, Hgb 13.3, Hct 39.0 L, MCV 89.2, MCH 30.4, MCHC 34.1, RDW Std Deviation 44.3 H, RDW Coeff of Manuela 13.5, Plt Count 160, MPV 10.0, Immature Gran % (Auto) 0.400, Neut % (Auto) 87.0 H, Lymph % (Auto) 2.9 L, [place] % (Auto) 7.7, Eos % (Auto) 1.9, Baso % (Auto) 0.1, Absolute Neuts (auto) 9.8 H, Absolute Lymphs (auto) 0.32 L, Nucleated RBC % 0, Differential Comment 05/21/19 05:40: Sodium Cancelled, Potassium Cancelled, Chloride Cancelled, Carbon Dioxide Cancelled, Anion Gap Cancelled, BUN Cancelled, Creatinine Cancelled, Estim Creat Clear Calc Cancelled, Est GFR (MDRD) Af Amer Cancelled, Est GFR (MDRD) Non-Af Cancelled, BUN/Creatinine Ratio Cancelled, Glucose Cancelled, Calcium Cancelled 05/21/19 05:40: ESR 46 H 05/21/19 07:16: Sodium 141, Potassium 3.8, Chloride 112 H, Carbon Dioxide 23.0, Anion Gap 6, BUN 20 H, Creatinine 0.90, Estim Creat Clear Calc 94.27, Est GFR (MDRD) Af Amer 115, Est GFR (MDRD) Non-Af 95, BUN/Creatinine Ratio 22.2 H, Glucose 107 H, Calcium 8.1 L Current Medications Enoxaparin Sodium (Lovenox) 40 mg SC DAILY@0600 [facility] Sodium Chloride () 1,000 mls @ 100 mls/hr IV .Q10H [facility] Last Admin: 05/22/19 00:04 Dose: 100 mls/hr Documented by: Piperacillin Sod/Tazobactam (Sod 3.375 gm/ Sodium Chloride) 50 mls @ 12.5 mls/hr IV Q8 [facility] Last Infusion: 05/22/19 01:27 Dose: Infused Documented by: Sodium Chloride () 250 mls @ 15 mls/hr IV .[id number] PRN PRN Reason: Saline Flush Last Infusion: 05/22/19 01:27 Dose: 15 mls/hr Documented by: Melatonin (Melatonin) 3 mg PO QHS PRN PRN PRN Reason: INSOMNIA Morphine Sulfate () 2 mg IV Q3H PRN PRN PRN Reason: Pain Score 6-10/10 Last Admin: 05/22/19 01:01 Dose: 2 mg Documented by: Nicotine (Nicoderm Cq (Pbkc)) 14 mg TRANSDERM. DAILY [facility] Last Admin: 05/21/19 09:09 Dose: 14 mg Documented by: Ondansetron HCl (Zofran) 4 mg IV Q6H PRN PRN PRN Reason: NAUSEA/VOMITING Last Admin: 05/20/19 23:39 Dose: 4 mg Documented by: Phenol/Menthol (Chloraseptic (Bkc)) 2 spray MUCOUS MEM Q2H PRN PRN PRN Reason: SORE THROAT Last Admin: 05/20/19 23:39 Dose: 2 sprays Documented by: Sodium Chloride () 10 - 40 ml IV UD PRN PRN Reason: SALINE FLUSH Medical Necessity - Tobacco Use Smoking Status: Current every day smoker Tobacco Use: Cigarettes Assessment/Plan All Active Problems Acute renal failure (Acute) Inflammatory bowel disease (Acute) Hyponatremia (Acute) Bacteria in urine (Acute) Abdominal pain (Acute) Tobacco abuse (Acute) Increased pain Stool panel negative except Lactoferrin No fever and dramatic WBC response yesterday votes against complicated appendicitis Will recheck labs and AXR Etiology not clear Will decrease to sips/chips Could this be Tb
[2019-05-22] MEDS: Enoxaparin 40 MG/0.4 ML Syringe SC (06:02)
[2019-05-22] MEDS: 0.9% Saline Lock 10 ML Syringe IV ×2 (06:54→07:58)
[2019-05-22 08:20] VITALS: BP 113/71; PULSE 79; RESP 18; TEMP 36.8; O2SAT 96
[2019-05-22 08:21] LABS: Absolute Lymphocyte Count 0.76 X10^3/uL (0.83-4.51); Absolute Neutrophil Count 7.7 X10^3/uL (2.0-7.7); Basophil# 0.03 X10^3/uL; Basophil% 0.3 % (0-1); Eosinophil# 0.07 X10^3/uL; Eosinophils% 0.7 % (0-5); Hematocrit 36.4 % (40-54); Hemoglobin 12.3 g/dL (13.0-16.5); Lymphocyte # 0.76 X10^3/ul (4.0); Mean Corp Hgb Conc 33.8 g/dL (32-36); Mean Corpuscular Hgb 30.4 pg (27.0-32.0); Mean Corpuscular Volume 90.1 fL (80-94); Mean Platelet Vol. 9.4 fl (6.2-12.0); Monocyte# 0.89 X10^3/uL; Monocyte% 9.4 % (0-10); NRBC Flagged by Analyzer 0 % (0-5); Neutrophil % 81.2 % (47-70); Platelet Count 171 K/mm3 (150-450); RBC Distribution Width CV 13.8 % (11.6-14.6); RBC Distribution Width SD 45.3 fl (35.1-43.9); Red Blood Count 4.04 M/mm3 (4.6-6.2); White Blood Count 9.5 K/mm3 (4.4-11.0)
--- NOTE | 2019-05-22 08:25 | RAD_ITS ---
STUDY: X-RAY - ABDOMEN/PELVIS REASON FOR EXAM: Male, 48 years old. NG placement TECHNIQUE: Single AP view of the abdomen / pelvis. COMPARISON: Comparison is made with prior examination dated May 22, 2019. FINDINGS: Normal visualized lung bases. A nasogastric tube is seen with the tip in the body of the stomach. There are dilated loops of the small intestine with a non-distended colon consistent with a small bowel obstruction. RAD/Abdomen Single View IMPRESSION: The tip of the nasogastric tube is in the body of the stomach. Electronically Signed: Chuy Galvan, at 9:29 EDT , Service support ,
[2019-05-22 08:43] LABS: Anion Gap 6 (5-15); BUN 13 mg/dL (7-18); BUN/Creat Ratio 21.7 RATIO (10-20); Calcium,Total 8.5 mg/dL (8.5-10.1); Chloride 108 mmol/L (98-107); EST Glomerular Filtration Rate 152 mL/min (>60); Est Glom Filt Rate - Afr Amer 184 mL/min (>60); Estimated Creatinine Clearance 141.41 ml/min; Glucose 90 mg/dL (74-106); Potassium 3.4 mmol/L (3.5-5.1); Sodium Level 139 mmol/L (136-145)
--- NOTE | 2019-05-22 09:35 | RAD_ITS ---
STUDY: GASTROGRAFIN SMALL BOWEL FOLLOW-THROUGH EXAMINATION. REASON FOR EXAM: Male, 48 years old. SMALL BOWEL OBSTRUCTION -- 11 IMAGES TECHNIQUE: Gastrografin was introduced through the indwelling nasogastric tube. A small bowel follow-through examination was then obtained. COMPARISON: None. FINDINGS: There is a marked degree of dilated small bowel loops down to the level of the distal ileum. 5 hours following the ingestion, a small amount of gas graft is seen in the colon. RAD/Small Bowel Series Only IMPRESSION: Small bowel obstruction with delayed visualization of a nondistended bladder right; at 5 hours following the placement of Gastrografin. Electronically Signed: Chuy Galvan, at 15:38 EDT , Service support ,
--- NOTE | 2019-05-22 12:21 | PN_ITS ---
Patient Problems: Active and Suspected Problems Acute renal failure (Acute) Inflammatory bowel disease (Acute) Hyponatremia (Acute) Bacteria in urine (Acute) Abdominal pain (Acute) Tobacco abuse (Acute) Subjective: Patient seen and examined. Still having continuous abdominal pain. He denied any nausea vomiting or diarrhea. He had one small bowel movement this morning but had not passed any gas. KUB done this morning showed evidence of small bowel obstruction. General surgery on board. NG tube placed per general surgery orders. Labs and vitals reviewed. He has remained hemodynamically stable. Potassium is 3.4 today. WBC is down to 9.5. Vitals/I&O's: Vital Signs Temp Pulse Resp BP Pulse Ox 98.2 F 79 18 113/71 96 05/22/19 08:20 05/22/19 08:20 05/22/19 08:20 05/22/19 08:20 05/22/19 08:20 Oxygen Delivery Method Room Air Weight: 146 lb 6.191 oz Body Mass Index (BMI) 20.9 Intake and Output for Last 24 Hours 05/20/19 05/21/19 05/22/19 23:59 23:59 23:59 Intake Total 3803.33 / 3803.33 3910.83 / 3910.83 1231.91 / 1231.91 Output Total 600 / 600 100 / 100 Balance 3203.33 / 3203.33 3810.83 / 3810.83 1231.91 / 1231.91 General: Alert, Oriented x3, Cooperative, No apparent distress HEENT: Atraumatic, PERRLA, EOMI, Normocephalic Oral: Moist Mucosa Neck: Supple, No JVD, Negative Carotid Bruits Lungs: Clear to auscultation, Normal air movement, No rhonchi, No wheeze Cardiovascular: Regular rate, Regular Rhythm, Normal S1, Normal S2, No murmurs Abdomen: Bowel Sounds Present, Soft, - - Mild generalized tenderness, no guarding or rebound tenderness. Abdomen mildly distended. NG tube in place. Extremities: No clubbing, No cyanosis, No edema, Capillary Refill Less than 3 Seconds Skin: No rashes, No breakdown Musculoskeletal: No Tenderness to Palpation of Joints or Extremities Lymphatic: No Cervical, Supraclavicular, or Inguinal Adenopathy Neurological: Cranial nerves II-XII grossly intact, Neuro grossly intact, Motor Exam 5/5 strength throughout Psych/Mental Status: Normal Affect, Appropriate, Alert and oriented to time, place, person, mood and affect Microbiology Past 72 Hours 05/20/19 10:20 Urine, Clean Catch Urine Culture - Final Culture exhibits no growth. 05/20/19 12:00 Blood Culture (Wb) - Anticubital Left Blood Culture - Preliminary No growth in 48 hours. 05/20/19 12:00 Blood Culture (Wb) - Anticubital Left Blood Culture - Preliminary No growth in 48 hours. 05/20/19 23:00 Stool Enteric Bacteriology - Final 05/20/19 23:00 Stool Stool Lactoferrin - Final Laboratory Results 05/22/19 08:02: WBC 9.5, RBC 4.04 L, Hgb 12.3 L, Hct 36.4 L, MCV 90.1, MCH 30.4, MCHC 33.8, RDW Std Deviation 45.3 H, RDW Coeff of Manuela 13.8, Plt Count 171, MPV 9.4, Immature Gran % (Auto) 0.400, Neut % (Auto) 81.2 H, Lymph % (Auto) 8.0 L, [place] % (Auto) 9.4, Eos % (Auto) 0.7, Baso % (Auto) 0.3, Absolute Neuts (auto) 7.7, Absolute Lymphs (auto) 0.76 L, Nucleated RBC % 0 05/22/19 08:02: Sodium 139, Potassium 3.4 L, Chloride 108 H, Carbon Dioxide 25.0, Anion Gap 6, BUN 13, Creatinine 0.60 L, Estim Creat Clear Calc 141.41, Est GFR (MDRD) Af Amer 184, Est GFR (MDRD) Non-Af 152, BUN/Creatinine Ratio 21.7 H, Glucose 90, Calcium 8.5 Diagnostic Data Abdomen/Pelvis CT 05/20/19 08:03 IMPRESSION: Findings in the right lower quadrant as described. The differential diagnosis should include appendicitis versus inflammatory bowel disease. A delayed CT scan to assess contrast migration is recommended. Electronically Signed: Chuy Galvan, at 10:02 EDT , Service support , Limited or Localized CT 05/20/19 11:00 IMPRESSION: There is evidence of a small bowel dilatation as well as thickening of the mucosa and the small bowel wall in several small bowel loops in the pelvis and right lower quadrant with increased markings in the surrounding peritoneal fat. The differential diagnosis to consider should include inflammatory bowel disease such as Crohn versus appendicitis. Electronically Signed: Chuy Galvan, at 11:21 EDT , Service support , Abdomen X-Ray 05/22/19 05:56 IMPRESSION: Findings in keeping with a distal high-grade small bowel obstruction. By history, no recent surgery. at 0741 Reported and signed by: Bradford Nuno MD N.B. : The above information has been verbally conveyed by Bradford Nuno to Loli Sunshine;[phone], RN, on 05/22/2019 07:40:57 (ET). Electronically Signed: Bradford Nuno, at 7:40 EDT Tel , Service support , ADDENDUM: 05/22/19 0749 IMPRESSION: Findings in keeping with a distal high-grade small bowel obstruction. By history, no recent surgery. at 0741 Reported and signed by: Bradford Nuno MD N.B. : The above information has been verbally conveyed by Bradford Nuno to Loli Sunshine;[phone], RN, on 05/22/2019 07:40:57 (ET). Electronically Signed: Bradford Nuno at 7:40 EDT Tel , Service support , KUB X-Ray 05/22/19 08:25 IMPRESSION: The tip of the nasogastric tube is in the body of the stomach. Electronically Signed: Chuy Galvan, at 9:29 EDT , Service support , Current Medications Enoxaparin Sodium (Lovenox) 40 mg SC DAILY@0600 [facility] Last Admin: 05/22/19 06:02 Dose: 40 mg Documented by: Sodium Chloride () 1,000 mls @ 100 mls/hr IV .Q10H [facility] Last Infusion: 05/22/19 06:57 Dose: 0 mls/hr Documented by: Piperacillin Sod/Tazobactam (Sod 3.375 gm/ Sodium Chloride) 50 mls @ 12.5 mls/hr IV Q8 [facility] Last Infusion: 05/22/19 06:57 Dose: 0 mls/hr Documented by: Sodium Chloride () 250 mls @ 15 mls/hr IV .[id number] PRN PRN Reason: Saline Flush Last Infusion: 05/22/19 02:13 Dose: 0 mls/hr Documented by: Melatonin (Melatonin) 3 mg PO QHS PRN PRN PRN Reason: INSOMNIA Morphine Sulfate () 2 mg IV Q3H PRN PRN PRN Reason: Pain Score 6-10/10 Last Admin: 05/22/19 05:56 Dose: 2 mg Documented by: Nicotine (Nicoderm Cq (Pbkc)) 14 mg TRANSDERM. DAILY [facility] Last Admin: 05/21/19 09:09 Dose: 14 mg Documented by: Ondansetron HCl (Zofran) 4 mg IV Q6H PRN PRN PRN Reason: NAUSEA/VOMITING Last Admin: 05/20/19 23:39 Dose: 4 mg Documented by: Phenol/Menthol (Chloraseptic (Bkc)) 2 spray MUCOUS MEM Q2H PRN PRN PRN Reason: SORE THROAT Last Admin: 05/20/19 23:39 Dose: 2 sprays Documented by: Sodium Chloride () 10 - 40 ml IV UD PRN PRN Reason: SALINE FLUSH Last Admin: 05/22/19 07:58 Dose: 10 ml Documented by: Medical Necessity - Tobacco Use Smoking Status: Current every day smoker Tobacco Use: Cigarettes Assessment/Plan All Active Problems Acute renal failure (Acute) Inflammatory bowel disease (Acute) Hyponatremia (Acute) Bacteria in urine (Acute) Abdominal pain (Acute) Tobacco abuse (Acute) 1.Small bowel obstruction * abdominal xrays today: dilated gas and fluid filled small loops of bowel with numerous air fluid levels at different heights seen with small bowel obstrution * general surgery on board * patietn now NPO; NG tube inserted and placed to suction * continue gentle hydration with IVF * 2. Sepsis due to gastroenteritis * Inflammatory bowel disease is another consideration * fecal calprotectin is still pending. * wbc down to 9.5 * on IV zosyn 3. UTI:UA showed UTI, but urine culture was negative and blood cultures were also negative. Currently on IV Zosyn. 4. PTSD: Follows up with his psychiatrist. On clonazepam and duloxetine as well as amitriptyline. DVT prophylaxis: Lovenox Inpatient E&M: 61343 [facility] Hosp L3
--- NOTE | 2019-05-22 13:05 | NURSING ---
Dr Ashia Urias called this nurse, stated plan has changed to starting pt on steriods, he spoke with Dr. Hernandez, who will order the steroid. Dr. Urias is holding a spot in surgery but does not think he will take him to surgery. He was informed by this nurse that radiology said not to hook him up to ng tube yet, they will complete the series at 1430, and his reply was okay.
[2019-05-22 14:07] VITALS: BP 125/79; PULSE 78; RESP 18; TEMP 36.6; O2SAT 99
[2019-05-22] MEDS: BENZOCAINE/MENTHOL 1 LOZENGE MUCOUS MEM ×3 (15:45→22:16)
--- NOTE | 2019-05-22 18:52 | NURSING ---
PT was informed the is not allowed to have ice chips, Cepacol given per his request.
[2019-05-22 22:26] VITALS: BP 124/72; PULSE 80; RESP 17; TEMP 36.6; O2SAT 96
[2019-05-23] MEDS: 0.9% Normal Saline 1,000 ML 100 ML IV ×3 (00:05→21:31)
[2019-05-23] MEDS: BENZOCAINE/MENTHOL 1 LOZENGE MUCOUS MEM ×5 (01:54→21:30)
[2019-05-23 03:14] VITALS: BP 137/78; PULSE 78; RESP 18; TEMP 36.5; O2SAT 96
--- NOTE | 2019-05-23 05:49 | RAD_ITS ---
HISTORY: small bowel obstruction, says he feeling better pt had small bowel series done yesterday EXAMINATION/TECHNIQUE: XR abdomen series supine and upright 4 views COMPARISON: Small bowel series 05/22/2019 FINDINGS: The NG tube is unchanged in position. No free intraperitoneal air. Persistent distal small bowel obstruction. Numerous dilated small bowel loops within the upper and mid abdomen with associated air-fluid levels at different heights. Passage of a small amount of contrast into the right colon which is nondilated. RAD/Abd Inc Decub and/or Erect IMPRESSION: Persistent small bowel obstruction which appears relatively high-grade. Details above. at 0748 Reported and signed by: Bradford Nuno MD Electronically Signed: Bradford Nuno, at 7:47 EDT Tel , Service support ,
--- NOTE | 2019-05-23 05:50 | PN.SURG_ITS ---
Patient Problems: Active and Suspected Problems Acute renal failure (Acute) Inflammatory bowel disease (Acute) Hyponatremia (Acute) Bacteria in urine (Acute) Abdominal pain (Acute) Tobacco abuse (Acute) Subjective: Patient is feeling improved today. Less abdominal pain. He notes that he still feels distended. He has had some looser stools. - Physical Exam Vitals/I&O's: Vital Signs Temp Pulse Resp BP Pulse Ox 97.7 F L 78 18 137/78 H 96 05/23/19 03:14 05/23/19 03:14 05/23/19 03:14 05/23/19 03:14 05/23/19 03:14 Oxygen Delivery Method Room Air Weight: 146 lb 6.191 oz Body Mass Index (BMI) 20.9 Intake and Output for Last 24 Hours 05/21/19 05/22/19 05/23/19 23:59 23:59 23:59 Intake Total 3910.83 / 3910.83 1515.24 / 1515.24 978.33 / 978.33 Output Total 100 / 100 850 / 850 100 / 100 Balance 3810.83 / 3810.83 665.24 / 665.24 878.33 / 878.33 Abdomen: Hypoactive Bowel Sounds - Much less tender to palpation, Distended Microbiology Past 72 Hours 05/20/19 10:20 Urine, Clean Catch Urine Culture - Final Culture exhibits no growth. 05/20/19 12:00 Blood Culture (Wb) - Anticubital Left Blood Culture - Preliminary No growth in 48 hours. 05/20/19 12:00 Blood Culture (Wb) - Anticubital Left Blood Culture - Preliminary No growth in 48 hours. 05/20/19 23:00 Stool Enteric Bacteriology - Final 05/20/19 23:00 Stool Stool Lactoferrin - Final Laboratory Results 05/22/19 08:02: WBC 9.5, RBC 4.04 L, Hgb 12.3 L, Hct 36.4 L, MCV 90.1, MCH 30.4, MCHC 33.8, RDW Std Deviation 45.3 H, RDW Coeff of Manuela 13.8, Plt Count 171, MPV 9.4, Immature Gran % (Auto) 0.400, Neut % (Auto) 81.2 H, Lymph % (Auto) 8.0 L, [place] % (Auto) 9.4, Eos % (Auto) 0.7, Baso % (Auto) 0.3, Absolute Neuts (auto) 7.7, Absolute Lymphs (auto) 0.76 L, Nucleated RBC % 0 05/22/19 08:02: Sodium 139, Potassium 3.4 L, Chloride 108 H, Carbon Dioxide 25.0, Anion Gap 6, BUN 13, Creatinine 0.60 L, Estim Creat Clear Calc 141.41, Est GFR (MDRD) Af Amer 184, Est GFR (MDRD) Non-Af 152, BUN/Creatinine Ratio 21.7 H, Glucose 90, Calcium 8.5 Current Medications Enoxaparin Sodium (Lovenox) 40 mg SC DAILY@0600 [facility] Last Admin: 05/22/19 06:02 Dose: 40 mg Documented by: Sodium Chloride () 1,000 mls @ 100 mls/hr IV .Q10H [facility] Last Admin: 05/23/19 00:05 Dose: 100 mls/hr Documented by: Piperacillin Sod/Tazobactam (Sod 3.375 gm/ Sodium Chloride) 50 mls @ 12.5 mls/hr IV Q8 [facility] Last Infusion: 05/23/19 02:17 Dose: Infused Documented by: Sodium Chloride () 250 mls @ 15 mls/hr IV .[id number] PRN PRN Reason: Saline Flush Last Infusion: 05/22/19 02:13 Dose: 0 mls/hr Documented by: Melatonin (Melatonin) 3 mg PO QHS PRN PRN PRN Reason: INSOMNIA Methylprednisolone (Solu-Medrol) 40 mg IV Q8 [facility] Last Admin: 05/22/19 22:17 Dose: 40 mg Documented by: Morphine Sulfate () 2 mg IV Q3H PRN PRN PRN Reason: Pain Score 6-10/10 Last Admin: 05/22/19 20:51 Dose: 2 mg Documented by: Nicotine (Nicoderm Cq (Pbkc)) 14 mg TRANSDERM. DAILY [facility] Last Admin: 05/22/19 13:19 Dose: 14 mg Documented by: Ondansetron HCl (Zofran) 4 mg IV Q6H PRN PRN PRN Reason: NAUSEA/VOMITING Last Admin: 05/20/19 23:39 Dose: 4 mg Documented by: Phenol/Menthol (Chloraseptic (Bkc)) 2 spray MUCOUS MEM Q2H PRN PRN PRN Reason: SORE THROAT Last Admin: 05/20/19 23:39 Dose: 2 sprays Documented by: Sodium Chloride () 10 - 40 ml IV UD PRN PRN Reason: SALINE FLUSH Last Admin: 05/22/19 07:58 Dose: 10 ml Documented by: Throat Lozenges (Cepacol Sore Throat Lozenge) 1 lozenge MUCOUS MEM Q2H PRN PRN PRN Reason: SORE THROAT Last Admin: 05/23/19 01:54 Dose: 1 lozenge Documented by: Medical Necessity - Tobacco Use Smoking Status: Current every day smoker Tobacco Use: Cigarettes Assessment/Plan All Active Problems Acute renal failure (Acute) Inflammatory bowel disease (Acute) Hyponatremia (Acute) Bacteria in urine (Acute) Abdominal pain (Acute) Tobacco abuse (Acute) Clinically the patient is improved but there is a significant amount of bilious NG tube output. The patient has had some resumption of liquidy stool. He has been initiated on treatment for possible inflammatory bowel disease. His Gastrografin small bowel follow-through after 5 hours did demonstrate contrast reaching the cecum. I recommend ongoing conservative measures. I will allow the patient sips and chips and we will obtain repeat abdominal x-rays this a.m. This will help in part decipher how long the NG tube needs to remain in place but for the moment we will continue to use. The patient is clinically improved and again at this moment I am not anticipating abdominal surgery. This of course is subject to change pending the patient's progress. Silvestre Urias M.D., F.A.C.S.
[2019-05-23] MEDS: Enoxaparin 40 MG/0.4 ML Syringe SC (05:52)
[2019-05-23 07:13] LABS: Absolute Lymphocyte Count 0.55 X10^3/uL (0.83-4.51); Absolute Neutrophil Count 6.7 X10^3/uL (2.0-7.7); Basophil# 0.01 X10^3/uL; Basophil% 0.1 % (0-1); Hemoglobin 12.2 g/dL (13.0-16.5); Lymphocyte # 0.55 X10^3/ul (4.0); Lymphocyte % 7.2 % (19-41); Mean Corpuscular Hgb 30.3 pg (27.0-32.0); Mean Platelet Vol. 9.7 fl (6.2-12.0); Monocyte# 0.36 X10^3/uL; Monocyte% 4.7 % (0-10); NRBC Flagged by Analyzer 0 % (0-5); Neutrophil # 6.66 X10^3/uL (2.7-7.7); Neutrophil % 87.5 % (47-70); POSITIVE DIFFERENTIAL YES; Platelet Count 200 K/mm3 (150-450); RBC Distribution Width CV 13.8 % (11.6-14.6); RBC Distribution Width SD 47.2 fl (35.1-43.9); Red Blood Count 4.02 M/mm3 (4.6-6.2); White Blood Count 7.6 K/mm3 (4.4-11.0)
[2019-05-23 07:20] LABS: Differential Indicated SCAN CRITERIA MET
[2019-05-23 07:43] LABS: Anion Gap 7 (5-15); BUN 19 mg/dL (7-18); Calcium,Total 8.5 mg/dL (8.5-10.1); Chloride 110 mmol/L (98-107); Creatinine, Serum 0.68 mg/dL (0.70-1.30); EST Glomerular Filtration Rate 132 mL/min (>60); Est Glom Filt Rate - Afr Amer 160 mL/min (>60); Estimated Creatinine Clearance 124.77 ml/min; Glucose 119 mg/dL (74-106); Potassium 3.5 mmol/L (3.5-5.1); Sodium Level 144 mmol/L (136-145)
[2019-05-23 10:35] VITALS: BP 116/80; PULSE 74; RESP 18; TEMP 36.7; O2SAT 97
--- NOTE | 2019-05-23 11:28 | PN_ITS ---
Patient Problems: Active and Suspected Problems Acute renal failure (Acute) Inflammatory bowel disease (Acute) Hyponatremia (Acute) Bacteria in urine (Acute) Abdominal pain (Acute) Tobacco abuse (Acute) Subjective: Patient seen and examined. He says he feels better today. NG tube was placed yesterday he had significant bilious output from NG tube which he says made him feel much better. He is having bowel movements and states he is soft. He denies any nausea, any fever chills or abdominal pain. Review systems otherwise negative. Vitals/I&O's: Vital Signs Temp Pulse Resp BP Pulse Ox 97.7 F L 78 18 137/78 H 96 05/23/19 03:14 05/23/19 03:14 05/23/19 03:14 05/23/19 03:14 05/23/19 03:14 Oxygen Delivery Method Room Air Weight: 146 lb 6.191 oz Body Mass Index (BMI) 20.9 Intake and Output for Last 24 Hours 05/21/19 05/22/19 05/23/19 23:59 23:59 23:59 Intake Total 3910.83 / 3910.83 1515.24 / 1515.24 96 / Output Total 100 / 100 850 / 850 550 / 550 Balance 3810.83 / 3810.83 665.24 / 665.24 1428.96 / 1428.96 General: Alert, Oriented x3, Cooperative, No apparent distress HEENT: Atraumatic, PERRLA, EOMI, Normocephalic Oral: Moist Mucosa Neck: Supple, No JVD, Negative Carotid Bruits Lungs: Clear to auscultation, Normal air movement, No rhonchi, No wheeze Cardiovascular: Regular rate, Regular Rhythm, Normal S1, Normal S2, No murmurs Abdomen: Bowel Sounds Present, Soft, - - Mild generalized tenderness, no guarding or rebound tenderness. Abdomen soft, minimal tenderness. NG tube in place. Extremities: No clubbing, No cyanosis, No edema, Capillary Refill Less than 3 Seconds Skin: No rashes, No breakdown Musculoskeletal: No Tenderness to Palpation of Joints or Extremities Lymphatic: No Cervical, Supraclavicular, or Inguinal Adenopathy Neurological: Cranial nerves II-XII grossly intact, Neuro grossly intact, Motor Exam 5/5 strength throughout Psych/Mental Status: Normal Affect, Appropriate, Alert and oriented to time, place, person, mood and affect Microbiology Past 72 Hours Microbiology Past 72 Hours 05/20/19 10:20 Urine, Clean Catch Urine Culture - Final Culture exhibits no growth. 05/20/19 12:00 Blood Culture (Wb) - Anticubital Left Blood Culture - Preliminary No growth in 48 hours. 05/20/19 12:00 Blood Culture (Wb) - Anticubital Left Blood Culture - Preliminary No growth in 48 hours. 05/20/19 23:00 Stool Enteric Bacteriology - Final 05/20/19 23:00 Stool Stool Lactoferrin - Final Laboratory Results 05/23/19 06:46: WBC 7.6, RBC 4.02 L, Hgb 12.2 L, Hct 37.0 L, MCV 92.0, MCH 30.3, MCHC 33.0, RDW Std Deviation 47.2 H, RDW Coeff of Manuela 13.8, Plt Count 200, MPV 9.7, Immature Gran % (Auto) 0.500, Neut % (Auto) 87.5 H, Lymph % (Auto) 7.2 L, [place] % (Auto) 4.7, Eos % (Auto) 0.0, Baso % (Auto) 0.1, Absolute Neuts (auto) 6.7, Absolute Lymphs (auto) 0.55 L, Nucleated RBC % 0 05/23/19 06:46: Sodium 144, Potassium 3.5, Chloride 110 H, Carbon Dioxide 27.0, Anion Gap 7, BUN 19 H, Creatinine 0.68 L, Estim Creat Clear Calc 124.77, Est GFR (MDRD) Af Amer 160, Est GFR (MDRD) Non-Af 132, BUN/Creatinine Ratio 28.0 H, Glucose 119 H, Calcium 8.5 Diagnostic Data Abdomen/Pelvis CT 05/20/19 08:03 IMPRESSION: Findings in the right lower quadrant as described. The differential diagnosis should include appendicitis versus inflammatory bowel disease. A delayed CT scan to assess contrast migration is recommended. Electronically Signed: Chuy Galvan, at 10:02 EDT , Service support , Limited or Localized CT 05/20/19 11:00 IMPRESSION: There is evidence of a small bowel dilatation as well as thickening of the mucosa and the small bowel wall in several small bowel loops in the pelvis and right lower quadrant with increased markings in the surrounding peritoneal fat. The differential diagnosis to consider should include inflammatory bowel disease such as Crohn versus appendicitis. Electronically Signed: Chuy Cole, at 11:21 EDT , Service support , KUB X-Ray 05/22/19 08:25 IMPRESSION: The tip of the nasogastric tube is in the body of the stomach. Electronically Signed: Chuy Cole, at 9:29 EDT , Service support , Small Bowel X-Ray 05/22/19 09:35 IMPRESSION: Small bowel obstruction with delayed visualization of a nondistended bladder right; at 5 hours following the placement of Gastrografin. Electronically Signed: Chuy Galvan, at 15:38 EDT , Service support , Abdomen X-Ray 05/23/19 05:49 IMPRESSION: Persistent small bowel obstruction which appears relatively high-grade. Details above. at 0748 Reported and signed by: Bradford Nuno MD Electronically Signed: Bradford Nuno, at 7:47 EDT Tel , Service support , Current Medications Enoxaparin Sodium (Lovenox) 40 mg SC DAILY@0600 [facility] Last Admin: 05/23/19 05:52 Dose: 40 mg Documented by: Sodium Chloride () 1,000 mls @ 100 mls/hr IV .Q10H [facility] Last Infusion: 05/23/19 11:07 Dose: Infused Documented by: Piperacillin Sod/Tazobactam (Sod 3.375 gm/ Sodium Chloride) 50 mls @ 12.5 mls/hr IV Q8 [facility] Last Infusion: 05/23/19 06:44 Dose: 12.5 mls/hr Documented by: Sodium Chloride () 250 mls @ 15 mls/hr IV .[id number] PRN PRN Reason: Saline Flush Last Infusion: 05/22/19 02:13 Dose: 0 mls/hr Documented by: Melatonin (Melatonin) 3 mg PO QHS PRN PRN PRN Reason: INSOMNIA Methylprednisolone (Solu-Medrol) 40 mg IV Q8 [facility] Last Admin: 05/23/19 05:52 Dose: 40 mg Documented by: Morphine Sulfate () 2 mg IV Q3H PRN PRN PRN Reason: Pain Score 6-10/10 Last Admin: 05/22/19 20:51 Dose: 2 mg Documented by: Nicotine (Nicoderm Cq (Pbkc)) 14 mg TRANSDERM. DAILY [facility] Last Admin: 05/22/19 13:19 Dose: 14 mg Documented by: Ondansetron HCl (Zofran) 4 mg IV Q6H PRN PRN PRN Reason: NAUSEA/VOMITING Last Admin: 05/20/19 23:39 Dose: 4 mg Documented by: Phenol/Menthol (Chloraseptic (Bkc)) 2 spray MUCOUS MEM Q2H PRN PRN PRN Reason: SORE THROAT Last Admin: 05/20/19 23:39 Dose: 2 sprays Documented by: Sodium Chloride () 10 - 40 ml IV UD PRN PRN Reason: SALINE FLUSH Last Admin: 05/22/19 07:58 Dose: 10 ml Documented by: Throat Lozenges (Cepacol Sore Throat Lozenge) 1 lozenge MUCOUS MEM Q2H PRN PRN PRN Reason: SORE THROAT Last Admin: 05/23/19 01:54 Dose: 1 lozenge Documented by: Medical Necessity - Tobacco Use Smoking Status: Current every day smoker Tobacco Use: Cigarettes Assessment/Plan All Active Problems Acute renal failure (Acute) Inflammatory bowel disease (Acute) Hyponatremia (Acute) Bacteria in urine (Acute) Abdominal pain (Acute) Tobacco abuse (Acute) 1.Small bowel obstruction * Repeat abdominal x-ray today shows persistent small bowel obstruction which appears high-grade. * Started on IV Solu-Medrol yesterday by general surgery recommendations on account of concerns for possible inflammatory bowel disease. * Gastrografin small bowel follow-through after 5 hours done yesterday did demonstrate contrast reaching the cecum * General surgery on board-advocated on conservative management. Patient to be allowed sips and chips. * To repeat x-rays in the morning to determine how long the NG tube will need to remain in place. * had 850mls of gastric drainage overnight, and 550cc so far today * continue gentle hydration with IVF * 2. Sepsis due to gastroenteritis * Inflammatory bowel disease is another consideration * fecal calprotectin is still pending. * wbc down to 9.5 * on IV zosyn; started on IV solumedrol yesterday 3. UTI:UA showed UTI, but urine culture was negative and blood cultures were also negative. Currently on IV Zosyn. 4. PTSD: Follows up with his psychiatrist. On clonazepam and duloxetine as well as amitriptyline. GI prophylaxis; IV famotidine DVT prophylaxis: Lovenox Inpatient E&M: [id number] [facility] Hosp L3
[2019-05-23] MEDS: Famotidine 200 MG/20 ML MDV 20 MG in 0.9% Normal Saline (Pres. free 8 ML 300 MG IV (13:06)
[2019-05-23] MEDS: 0.9% Saline Lock 10 ML Syringe IV ×2 (13:14→21:30)
[2019-05-23 18:39] VITALS: BP 118/77; PULSE 83; RESP 16; TEMP 37.1; O2SAT 99
[2019-05-23 21:36] VITALS: BP 110/72; PULSE 76; RESP 20; TEMP 36.8; O2SAT 97
[2019-05-24] VITALS (12 sets, daily range): BP systolic 109–139; BP diastolic 60–85; PULSE 49–97; RESP 16–18; TEMP 36.4–37.5; O2SAT 94–98; BMI 20.9
[2019-05-24] MEDS: BENZOCAINE/MENTHOL 1 LOZENGE MUCOUS MEM ×4 (03:37→21:14)
--- NOTE | 2019-05-24 06:00 | RAD_ITS ---
We are attempting to reach an attending provider to discuss findings. An addendum with communication details will be sent when the communication is complete. STUDY: X-RAY - ABDOMEN/PELVIS REASON FOR EXAM: Male, 48 years old. SMALL BOWEL OBSTRUCTION TECHNIQUE: AP supine and upright views of the abdomen and pelvis. COMPARISON: May 20, 2019, May 23, 2019 CT abdomen and pelvis and follow-up May 23, 2019 FINDINGS: Normal visualized lung bases. Multiple distended loops of small bowel present with air fluid levels. There is a NG tube present just past the gastroesophageal junction. Multiple very distended loops of small bowel with decompressed appearing lesser caliber colon containing minimal contrast from a prior procedure, May 22, 2019. The spleen and kidneys are obscured. Normal soft tissue structures. Normal visualized osseous structures. RAD/Abd Inc Decub and/or Erect IMPRESSION: Small bowel obstruction/high-grade partial small bowel obstruction. The NG tube is high and should be advanced further into the stomach 5-10 cm. Recommend consideration for follow-up CT scan of the abdomen and pelvis. Electronically Signed: Shobha Teixeira MD at 8:38 EDT Tel , Service support ,
[2019-05-24 06:19] LABS: Absolute Lymphocyte Count 1.08 X10^3/uL (0.83-4.51); Absolute Neutrophil Count 7.7 X10^3/uL (2.0-7.7); Basophil# 0.01 X10^3/uL; Basophil% 0.1 % (0-1); Hematocrit 26.2 % (40-54); Hemoglobin 8.5 g/dL (13.0-16.5); Lymphocyte # 1.08 X10^3/ul (4.0); Lymphocyte % 11.2 % (19-41); Mean Corp Hgb Conc 32.4 g/dL (32-36); Mean Corpuscular Hgb 29.7 pg (27.0-32.0); Mean Corpuscular Volume 91.6 fL (80-94); Mean Platelet Vol. 10.1 fl (6.2-12.0); Monocyte# 0.84 X10^3/uL; Monocyte% 8.7 % (0-10); NRBC Flagged by Analyzer 0 % (0-5); Neutrophil # 7.66 X10^3/uL (2.7-7.7); Neutrophil % 79.1 % (47-70); POSITIVE MORPHOLOGY YES; Platelet Count 172 K/mm3 (150-450); RBC Distribution Width CV 14.2 % (11.6-14.6); RBC Distribution Width SD 47.9 fl (35.1-43.9); Red Blood Count 2.86 M/mm3 (4.6-6.2); White Blood Count 9.7 K/mm3 (4.4-11.0)
[2019-05-24 06:26] LABS: Differential Indicated SCAN CRITERIA MET
[2019-05-24] MEDS: Enoxaparin 40 MG/0.4 ML Syringe SC (06:27)
[2019-05-24 06:28] LABS: Anion Gap 5 (5-15); BUN 22 mg/dL (7-18); BUN/Creat Ratio 37.7 RATIO (10-20); Chloride 114 mmol/L (98-107); Creatinine, Serum 0.58 mg/dL (0.70-1.30); EST Glomerular Filtration Rate 157 mL/min (>60); Est Glom Filt Rate - Afr Amer 190 mL/min (>60); Estimated Creatinine Clearance 146.28 ml/min; Glucose 126 mg/dL (74-106); Potassium 3.7 mmol/L (3.5-5.1); Sodium Level 146 mmol/L (136-145)
--- NOTE | 2019-05-24 07:42 | PN.SURG_ITS ---
Patient Problems: Active and Suspected Problems Acute renal failure (Acute) Inflammatory bowel disease (Acute) Hyponatremia (Acute) Bacteria in urine (Acute) Abdominal pain (Acute) Tobacco abuse (Acute) Subjective: pt c/o of stomach aches (denies pain with palpation), dark/black diarrhea with last BM-diarrhea was green before, Hb 8.5 from 12, NG 1450 yesterday- container looks like mostly water currently. - Physical Exam Vitals/I&O's: Vital Signs Temp Pulse Resp BP Pulse Ox 98.1 F 76 16 122/85 H 97 05/24/19 03:36 05/24/19 03:36 05/24/19 03:36 05/24/19 03:36 05/24/19 03:36 Oxygen Delivery Method Room Air Weight: 146 lb 6.191 oz Body Mass Index (BMI) 20.9 Intake and Output for Last 24 Hours 05/22/19 05/23/19 05/24/19 23:59 23:59 23:59 Intake Total 1515.24 / 1515.24 3644.33 / 3644.33 424.25 / 424.25 Output Total 850 / 850 3025 / 3025 825 / 825 Balance 665.24 / 665.24 619.33 / 619.33 -400.75 / -400.75 General: Alert, Oriented x3, Cooperative, No apparent distress Lungs: Normal air movement Cardiovascular: Regular rate Abdomen: Soft, Non Tender, Distended - moderate Extremities: No clubbing, No cyanosis, No edema Microbiology Past 72 Hours 05/20/19 10:20 Urine, Clean Catch Urine Culture - Final Culture exhibits no growth. 05/20/19 12:00 Blood Culture (Wb) - Anticubital Left Blood Culture - Preliminary No growth in 48 hours. 05/20/19 12:00 Blood Culture (Wb) - Anticubital Left Blood Culture - Preliminary No growth in 48 hours. 05/20/19 23:00 Stool Enteric Bacteriology - Final Laboratory Results 05/23/19 06:46: Sodium 144, Potassium 3.5, Chloride 110 H, Carbon Dioxide 27.0, Anion Gap 7, BUN 19 H, Creatinine 0.68 L, Estim Creat Clear Calc 124.77, Est GFR (MDRD) Af Amer 160, Est GFR (MDRD) Non-Af 132, BUN/Creatinine Ratio 28.0 H, Glucose 119 H, Calcium 8.5 05/24/19 05:32: WBC 9.7, RBC 2.86 L, Hgb 8.5 L, Hct 26.2 L, MCV 91.6, MCH 29.7, MCHC 32.4, RDW Std Deviation 47.9 H, RDW Coeff of Manuela 14.2, Plt Count 172, MPV 10.1, Immature Gran % (Auto) 0.900, Neut % (Auto) 79.1 H, Lymph % (Auto) 11.2 L, [place] % (Auto) 8.7, Eos % (Auto) 0.0, Baso % (Auto) 0.1, Absolute Neuts (auto) 7.7, Absolute Lymphs (auto) 1.08, Nucleated RBC % 0 05/24/19 05:32: Sodium 146 H, Potassium 3.7, Chloride 114 H, Carbon Dioxide 27.0, Anion Gap 5, BUN 22 H, Creatinine 0.58 L, Estim Creat Clear Calc 146.28, Est GFR (MDRD) Af Amer 190, Est GFR (MDRD) Non-Af 157, BUN/Creatinine Ratio 37.7 H, Glucose 126 H, Calcium 8.0 L Current Medications Enoxaparin Sodium (Lovenox) 40 mg SC DAILY@0600 [facility] Last Admin: 05/24/19 06:27 Dose: 40 mg Documented by: Sodium Chloride () 1,000 mls @ 100 mls/hr IV .Q10H [facility] Last Admin: 05/23/19 21:31 Dose: 100 mls/hr Documented by: Piperacillin Sod/Tazobactam (Sod 3.375 gm/ Sodium Chloride) 50 mls @ 12.5 mls/hr IV Q8 [facility] Last Admin: 05/24/19 06:27 Dose: 12.5 mls/hr Documented by: Sodium Chloride () 250 mls @ 15 mls/hr IV .[id number] PRN PRN Reason: Saline Flush Last Infusion: 05/24/19 06:27 Dose: 0 mls/hr Documented by: Famotidine 20 mg/ Sodium (Chloride) 10 mls @ 300 mls/hr IV Q24 [facility] Last Infusion: 05/23/19 13:10 Dose: Infused Documented by: Melatonin (Melatonin) 3 mg PO QHS PRN PRN PRN Reason: INSOMNIA Methylprednisolone (Solu-Medrol) 40 mg IV Q8 [facility] Last Admin: 05/24/19 06:27 Dose: 40 mg Documented by: Morphine Sulfate () 2 mg IV Q3H PRN PRN PRN Reason: Pain Score 6-10/10 Last Admin: 05/22/19 20:51 Dose: 2 mg Documented by: Nicotine (Nicoderm Cq (Pbkc)) 14 mg TRANSDERM. DAILY [facility] Last Admin: 05/23/19 11:40 Dose: 14 mg Documented by: Ondansetron HCl (Zofran) 4 mg IV Q6H PRN PRN PRN Reason: NAUSEA/VOMITING Last Admin: 05/20/19 23:39 Dose: 4 mg Documented by: Phenol/Menthol (Chloraseptic (Bkc)) 2 spray MUCOUS MEM Q2H PRN PRN PRN Reason: SORE THROAT Last Admin: 05/20/19 23:39 Dose: 2 sprays Documented by: Sodium Chloride () 10 - 40 ml IV UD PRN PRN Reason: SALINE FLUSH Last Admin: 05/23/19 21:30 Dose: 10 ml Documented by: Throat Lozenges (Cepacol Sore Throat Lozenge) 1 lozenge MUCOUS MEM Q2H PRN PRN PRN Reason: SORE THROAT Last Admin: 05/24/19 03:37 Dose: 1 lozenge Documented by: Medical Necessity - Tobacco Use Smoking Status: Current every day smoker Tobacco Use: Cigarettes Assessment/Plan All Active Problems Acute renal failure (Acute) Inflammatory bowel disease (Acute) Hyponatremia (Acute) Bacteria in urine (Acute) Abdominal pain (Acute) Tobacco abuse (Acute) 1. will get stat H/H and type and screen 2. d/w Dr. Urias he is planning for a ex lap, bowel resection, as pt still has significantly dilated SB and now melanotic stool with a drop in Hb Gayle Jeong M.D. Pager: [phone] [facility] [address] [place] [address], Outpatient [facility], [address] [place] [address] Office: [phone]
--- NOTE | 2019-05-24 08:07 | NURSING ---
Pt walking richey. Dr. Jeong went to see pt. Dr. Urias called this nurse. Dr. Urias spoke with Dr. Jeong. After speaking with Dr. Jeong, DR. Urias will be taking pt to OR.
--- NOTE | 2019-05-24 08:15 | EKG12_ITS ---
Test Reason : PRE OP Blood Pressure : / mmHG Vent. Rate : 069 BPM Atrial Rate : 069 BPM P-R Int : 122 ms QRS Dur : 090 ms QT Int : 400 ms P-R-T Axes : -14 052 026 degrees QTc Int : 428 ms Sinus rhythm with frequent Premature ventricular complexes and Premature atrial complexes Otherwise normal ECG When compared with ECG of 19-NOV-2006 11:52, Premature atrial complexes are now Present Confirmed by BASIL RAMOS, ROBERT ([id number]), material expeditor LANCE GOLDEN ([id number]) on 05/26/2019 8:38:41 AM Referred By: Confirmed By:ROBERT GRACIA MD
[2019-05-24 08:31] LABS: Hematocrit 30.9 % (40-54); Hemoglobin 10.1 g/dL (13.0-16.5)
--- NOTE | 2019-05-24 08:31 | NURSING ---
12 Lead EKG done. Type and Screen and H&H done. Dr. Urias here to see pt.
--- NOTE | 2019-05-24 08:34 | NURSING ---
Dr. Urias is aware that pt had lovenox SQ this morning at 0630.
[2019-05-24] MEDS: 0.9% Normal Saline 1,000 ML 1030 ML IV (08:45)
--- NOTE | 2019-05-24 08:50 | NURSING ---
Radiologist called with critical finding on xray, asking to speak to attending MD. Aware that MD had just left the floor and is planning to take the patient to surgery. Radiology staff requesting to hold to speak to . Cortext message sent to Dr. Urias and call transferred to Dr. Urias at this time.
[2019-05-24] MEDS: 0.9% Saline Lock 10 ML Syringe IV ×4 (08:59→18:52)
--- NOTE | 2019-05-24 09:02 | NURSING ---
PRotonix not up on floor yet. This nurse called, spoke with Julia pharmacist to sent protonix to OR as pt was leaving the floor. Cathleen from OR aware.
--- NOTE | 2019-05-24 09:06 | PCM.PN.BLA ---
Progress Note Patient notes sudden change approximately 730 this morning. He states that he felt well all day yesterday. This morning he developed increased abdominal pain and states that he had a small amount of dark stool with small amount of blood. He is currently complaining of abdominal discomfort which was not present yesterday. On laboratory he initially appeared to have a significant hemoglobin drop to 8.5 but upon recheck it appears to be 10.1. This is significantly different however from previous stable amount of 12.2. I received a phone call from Dr. Shobha Teixeira. Radiology believes that the small bowel obstruction is worsening. She questions the tension of acute appendicitis. When described the fact that the patient has not been febrile his entire stay and had a rapid correction of his white blood cell count and essentially less than 12 hours with improving abdominal discomfort none of this seems to correlate. However based upon acute worsening of symptoms and new onset of bleeding I am concerned about the potential of ischemic bowel and I have recommended to the patient a exploratory laparotomy with possible enterectomy and possible ileostomy. In detail I described the technique, benefit, risks, alternatives. No guarantees of success have been offered. He has had an opportunity to ask and have questions answered. We will proceed directly with operative intervention. Silvestre Urias M.D., F.A.C.S. STROKE Vital Signs/Narrative: Vital Signs Temp Pulse Resp BP Pulse Ox 05/24/19 08:12 97.7 F L 66 18 119/80 98
--- NOTE | 2019-05-24 09:15 | APP_PTH ---
PATIENT: DEX CLAYTON LOC: [facility] U#:[id number] AGE/SX: 48/M ROOM: [facility] RE05/20/[address]: Dr. Josefina Davila MD : 1970 BED: 1 DIS: 05/28/2019 SPEC #: [id number] RECD: 05/25/19 10:01 STATUS: MARYAN REJourdan #: [id number] MC: 05/24/19 09:[address]: Silvestre Urias DEPT: SURGICAL PATHOLOGY RECD BY: Dafne Marroquin ENTERED: 05/25/19 11:58 SP TYPE: APPENDIX OTHR DR: MD Dr. Henry Wooten MD No Primary Care Phys Tissues: Appendix, NOS Procedures: Surgery Specimen Level III HEADER OPERATION: Exploratory laparotomy, appendectomy PRE-OP DIAGNOSIS: Small bowel obstruction TISSUE SUBMITTED: Appendix, fecalith MICROSCOPIC DIAGNOSIS Appendix, fecalith: Acute ruptured appendicitis and periappendicitis. SCAR:chencho 05/26/19 MICROSCOPIC DESCRIPTION Slides are reviewed. GROSS DESCRIPTION Received is one container labeled with the patient's name and designated appendix, fecalith. The specimen consists of an appendix measuring 5.5 cm in length and up to 0.9 cm in diameter. The appendix appears to be ruptured close to the tip. The serosa is congested. The lumen appears pinpoint. Also present in the container is a small fecalith measuring 0.3 cm in greatest dimension. Supply Requirements Officer sections are submitted in one cassette. / SCAR:chencho 05/25/19 TC:2 CPT: 78409
[2019-05-24] MEDS: Bupivacaine Mpf 0.5% 30 ML VIAL (09:35)
--- NOTE | 2019-05-24 10:21 | PN_ITS ---
Patient Problems: Active and Suspected Problems Acute renal failure (Acute) Inflammatory bowel disease (Acute) Hyponatremia (Acute) Bacteria in urine (Acute) Abdominal pain (Acute) Tobacco abuse (Acute) Subjective: Patient seen and examined. Patient complained of worsening abdominal pain this morning, and said he had a bowel movement which was black, with some blood in toilet bowl. He felt fine yesterday, and symptoms started worsening this morning. He denied any fever, chills, shortness of breath, palpitations, dizziness, diarrhea vomiting. Review of symptoms otherwise negative. Labs and vitals reviewed. She has remained afebrile. However hemoglobin dropped to 8.5 this morning from 12.2 yesterday. In light of patient's worsening abdominal pain and drop in hemoglobin as well as dark stools with some blood, surgeon made decision to emergently send patient in for exploratory laparotomy today. Vitals/I&O's: Vital Signs Temp Pulse Resp BP Pulse Ox 97.7 F L 66 18 119/80 98 05/24/19 08:12 05/24/19 08:30 05/24/19 08:12 05/24/19 08:12 05/24/19 08:12 Oxygen Delivery Method Room Air Weight: 146 lb 6.191 oz Body Mass Index (BMI) 20.9 Intake and Output for Last 24 Hours 05/22/19 05/23/19 05/24/19 23:59 23:59 23:59 Intake Total 1515.24 / 1515.24 3644.33 / 3644.33 1424.25 / 1424.25 Output Total 850 / 850 3025 / 3025 825 / 825 Balance 665.24 / 665.24 619.33 / 619.33 599.25 / 599.25 General: Alert, Oriented x3, Cooperative, No apparent distress HEENT: Atraumatic, PERRLA, EOMI, Normocephalic Oral: Moist Mucosa Neck: Supple, No JVD, Negative Carotid Bruits Lungs: Clear to auscultation, Normal air movement, No rhonchi, No wheeze Cardiovascular: Regular rate, Regular Rhythm, Normal S1, Normal S2, No murmurs Abdomen: Bowel Sounds absent, Soft, moderate generalised tenderness, no guarding or rebound tenderness. NG tube in place. Extremities: No clubbing, No cyanosis, No edema, Capillary Refill Less than 3 Seconds Skin: No rashes, No breakdown Musculoskeletal: No Tenderness to Palpation of Joints or Extremities Lymphatic: No Cervical, Supraclavicular, or Inguinal Adenopathy Neurological: Cranial nerves II-XII grossly intact, Neuro grossly intact, Motor Exam 5/5 strength throughout Psych/Mental Status: Normal Affect, Appropriate, Alert and oriented to time, place, person, mood and affect Microbiology Past 72 Hours 05/20/19 10:20 Urine, Clean Catch Urine Culture - Final Culture exhibits no growth. 05/20/19 12:00 Blood Culture (Wb) - Anticubital Left Blood Culture - Preliminary No growth in 48 hours. 05/20/19 12:00 Blood Culture (Wb) - Anticubital Left Blood Culture - Preliminary No growth in 48 hours. 05/20/19 23:00 Stool Enteric Bacteriology - Final Laboratory Results 05/24/19 05:32: WBC 9.7, RBC 2.86 L, Hgb 8.5 L, Hct 26.2 L, MCV 91.6, MCH 29.7, MCHC 32.4, RDW Std Deviation 47.9 H, RDW Coeff of Manuela 14.2, Plt Count 172, MPV 10.1, Immature Gran % (Auto) 0.900, Neut % (Auto) 79.1 H, Lymph % (Auto) 11.2 L, [place] % (Auto) 8.7, Eos % (Auto) 0.0, Baso % (Auto) 0.1, Absolute Neuts (auto) 7.7, Absolute Lymphs (auto) 1.08, Nucleated RBC % 0 05/24/19 05:32: Sodium 146 H, Potassium 3.7, Chloride 114 H, Carbon Dioxide 27.0, Anion Gap 5, BUN 22 H, Creatinine 0.58 L, Estim Creat Clear Calc 146.28, Est GFR (MDRD) Af Amer 190, Est GFR (MDRD) Non-Af 157, BUN/Creatinine Ratio 37.7 H, Glucose 126 H, Calcium 8.0 L 05/24/19 08:20: Hgb 10.1 L, Hct 30.9 L 05/24/19 08:20: Blood Type A POSITIVE, Antibody Screen NEGATIVE Diagnostic Data Abdomen/Pelvis CT 05/20/19 08:03 IMPRESSION: Findings in the right lower quadrant as described. The differential diagnosis should include appendicitis versus inflammatory bowel disease. A delayed CT scan to assess contrast migration is recommended. Electronically Signed: Chuy Galvan, at 10:02 EDT , Service support , Limited or Localized CT 05/20/19 11:00 IMPRESSION: There is evidence of a small bowel dilatation as well as thickening of the mucosa and the small bowel wall in several small bowel loops in the pelvis and right lower quadrant with increased markings in the surrounding peritoneal fat. The differential diagnosis to consider should include inflammatory bowel disease such as Crohn versus appendicitis. Electronically Signed: Chuy Galvan, at 11:21 EDT , Service support , KUB X-Ray 05/22/19 08:25 IMPRESSION: The tip of the nasogastric tube is in the body of the stomach. Electronically Signed: Chuy Galvan, at 9:29 EDT , Service support , Small Bowel X-Ray 05/22/19 09:35 IMPRESSION: Small bowel obstruction with delayed visualization of a nondistended bladder right; at 5 hours following the placement of Gastrografin. Electronically Signed: Chuy Galvan, at 15:38 EDT , Service support , Abdomen X-Ray 05/24/19 06:00 IMPRESSION: Small bowel obstruction/high-grade partial small bowel obstruction. The NG tube is high and should be advanced further into the stomach 5-10 cm. Recommend consideration for follow-up CT scan of the abdomen and pelvis. Electronically Signed: Shobha Teixeira MD at 8:38 EDT Tel , Service support , ADDENDUM: 05/24/19 0900 IMPRESSION: Small bowel obstruction/high-grade partial small bowel obstruction. The NG tube is high and should be advanced further into the stomach 5-10 cm. Recommend consideration for follow-up CT scan of the abdomen and pelvis. N.B. : The above information has been verbally conveyed by Shobha Teixeira MD to Silvestre [id number], MD, on 05/24/2019 08:53:17 (ET). Electronically Signed: Shobha Teixeira MD at 8:38 EDT Tel , Service support , Current Medications Enoxaparin Sodium (Lovenox) 40 mg SC DAILY@0600 [facility] Last Admin: 05/24/19 06:27 Dose: 40 mg Documented by: Sodium Chloride () 1,000 mls @ 100 mls/hr IV .Q10H [facility] Last Admin: 05/24/19 08:45 Dose: 1,030 mls/hr Documented by: Piperacillin Sod/Tazobactam (Sod 3.375 gm/ Sodium Chloride) 50 mls @ 12.5 mls/hr IV Q8 [facility] Last Admin: 05/24/19 06:27 Dose: 12.5 mls/hr Documented by: Sodium Chloride () 250 mls @ 15 mls/hr IV .[id number] PRN PRN Reason: Saline Flush Last Infusion: 05/24/19 06:27 Dose: 0 mls/hr Documented by: Famotidine 20 mg/ Sodium (Chloride) 10 mls @ 300 mls/hr IV Q24 [facility] Last Infusion: 05/23/19 13:10 Dose: Infused Documented by: Melatonin (Melatonin) 3 mg PO QHS PRN PRN PRN Reason: INSOMNIA Morphine Sulfate () 2 mg IV Q3H PRN PRN PRN Reason: Pain Score 6-10/10 Last Admin: 05/22/19 20:51 Dose: 2 mg Documented by: Morphine Sulfate () 2 - 4 mg IV Q2H PRN PRN PRN Reason: Pain Score 4-10/10 Nicotine (Nicoderm Cq (Pbkc)) 14 mg TRANSDERM. DAILY [facility] Last Admin: 05/24/19 08:44 Dose: Not Given Documented by: Ondansetron HCl (Zofran) 4 mg IV Q6H PRN PRN PRN Reason: NAUSEA/VOMITING Last Admin: 05/20/19 23:39 Dose: 4 mg Documented by: Phenol/Menthol (Chloraseptic (Bkc)) 2 spray MUCOUS MEM Q2H PRN PRN PRN Reason: SORE THROAT Last Admin: 05/20/19 23:39 Dose: 2 sprays Documented by: Sodium Chloride () 10 - 40 ml IV UD PRN PRN Reason: SALINE FLUSH Last Admin: 05/24/19 08:59 Dose: 10 ml Documented by: Throat Lozenges (Cepacol Sore Throat Lozenge) 1 lozenge MUCOUS MEM Q2H PRN PRN PRN Reason: SORE THROAT Last Admin: 05/24/19 03:37 Dose: 1 lozenge Documented by: STROKE Vital Signs/Narrative: Vital Signs Temp Pulse Resp BP Pulse Ox 05/24/19 08:30 66 05/24/19 08:12 97.7 F L 66 18 119/80 98 Medical Necessity - Tobacco Use Smoking Status: Current every day smoker Tobacco Use: Cigarettes Assessment/Plan All Active Problems Acute renal failure (Acute) Inflammatory bowel disease (Acute) Hyponatremia (Acute) Bacteria in urine (Acute) Abdominal pain (Acute) Tobacco abuse (Acute) 1.Small bowel obstruction * patient has worsening abdominal pain this morning, with bowel movement that was black, with some bright red blood * abdominal xray today showed worsening small bowel obstruction * Hb dropped to 8.5 today; patient taken emergently to surgery today, findings of which were a perforated appendix. * on IV zosyn * general surgery on board; IV solumedrol dc'd. * * 2. Sepsis due to gastroenteritis and perforated appendix * fecal calprotectin is still pending. * wnc is 9.7 today * on IV zosyn. * 3. UTI:urine culture and blood culture are negative. Currently on IV Zosyn. 4. PTSD: Follows up with his psychiatrist. On clonazepam and duloxetine as well as amitriptyline. GI prophylaxis; IV famotidine DVT prophylaxis: Lovenox Inpatient E&M: [id number] [facility] Hosp L3
--- NOTE | 2019-05-24 10:29 | PCM.OPRPT ---
Problem List (1) Abdominal pain Status: Acute Qualifiers: Abdominal location: generalized Qualified Code(s): R10.84 - Generalized abdominal pain (2) Tobacco abuse Status: Acute (3) Chronic anxiety Status: Chronic (4) COPD (chronic obstructive pulmonary disease) Status: Chronic Qualifiers: Emphysema type: unspecified Report of Operation Date of Procedure: 05/24/19 Pre-Operative Diagnosis: Acute small bowel obstruction with possible ischemia and acute anemia with blood per rectum Post-Operative Diagnosis: Focal perforated appendicitis tip of the appendix. Minimal reactive change. Ileus Surgery/Procedure Performed:: Exploratory laparotomy with appendectomy Description of Surgical Findings:: Timeout and informed consent was obtained. 48-year-old gent was taken to the operating place upon the table underwent general endotracheal intubation esthesia. The abdomen was sterilely prepped draped. He was already on therapeutic Zosyn. A vertical infraumbilical incision was created. Sharp dissection performed down through the subcutaneous tissue the linea alba was incised expiration remediate revealed a slight odor. Hand expiration demonstrated multiple loops of distended small bowel but all the small bowel appear to be very viable. Upon further dissection loop of small bowel with slight reactive change to the wall was identified and upon tracing that to the appendix the cecum appeared not remarkable the appendix adjacent to the cecum was very diminutive almost like a pediatric appendix if not smaller this was traced down to a tip where there was very slight bulbous distention and a very small focal area of perforation. The mesoappendix was transected with hemostats and 3-0 Vicryl ligatures the appendix was transected at its base with a SYEDA 55 stapler. The pelvis was irrigated and aspirated free. There was no evidence of bowel obstruction the findings on CT and abdominal x-ray are all consistent with ileus. The pelvis was copiously irrigated. Very small fecalith was removed. Through a stab incision in the right lower quadrant I placed a 15 round RUTH ANN drain. Was secured the skin with 3-0 nylon. Was placed into the pelvis. There was no greater omentum was placed overlying the small bowel so I elected to close the peritoneum with a running 0 Vicryl. We then changed gloves irrigated the wound and closed the fascia with a running 0 PDS. The wound was again irrigated. Incision was anesthetized with 0.5% Marcaine a total of 30 cc was used. The skin was partially approximated with interrupted 4-0 Monocryl subdermal stitches. 1/4 inch Ludin drain was placed beneath the wound closure from superior to inferior. It was secured to the skin inferiorly with a safety pin. Sterile dressings were applied. Sponge and instrument and needle counts reported the surgeon be correct. Blood loss minimal. Specimens appendix. Drains 15 round RUTH ANN. Blood loss minimal. Silvestre Urias M.D., F.A.C.S. finish molder: Gayle Jeong Type of Anesthesia:: General Anesthesiologist: Leann Gomes
--- NOTE | 2019-05-24 11:13 | RAD_ITS ---
STUDY: X-RAY - ABDOMEN/PELVIS REASON FOR EXAM: Male, 48 years old. Ng tube placement TECHNIQUE: Single AP view of the abdomen / pelvis. COMPARISON: May 24, 2019 at 4:55 AM FINDINGS: Minimal lower lobe atelectasis. There is a NG tube present the tip is just past the gastroesophageal junction. This should be advanced at least 10 cm. There are distended loops of small bowel present. RAD/Abdomen Single View IMPRESSION: Chest abdomen study. An NG tube is present the tip is just past the gastroesophageal junction and should be advanced 5 to 10 cm for improved placement. Minimal lower lobe atelectasis. Distended small bowel loops. Electronically Signed: Shobha Teixeira MD at 12:09 EDT Tel , Service support ,
--- NOTE | 2019-05-24 11:45 | PCA ---
pt off floor
--- NOTE | 2019-05-24 11:46 | PCA ---
pt off floor
--- NOTE | 2019-05-24 12:30 | NURSING ---
Back to floor from OR/Recovery room
[2019-05-24] MEDS: 0.9% Normal Saline 1,000 ML 100 ML IV ×2 (13:03→23:07)
[2019-05-24] MEDS: Famotidine 200 MG/20 ML MDV 20 MG in 0.9% Normal Saline (Pres. free 8 ML 300 MG IV (13:03)
--- NOTE | 2019-05-24 13:05 | NURSING ---
up to bathroom and Drsg to ABd had lg amt of shadowy, pink/orange drainage. Large amt draining from Around RUTH ANN site where sutures are. Pt was holding a chux there. This nurse reinforced drsg with several ABD pads and 2-split 4x4 drsgs to RUTH ANN site and with blue paper tape. Will continue to monitor. Pt wanted to go for a walk so he is ambulating right now with the branch office administrator assistance.
[2019-05-24] MEDS: Morphine 2 MG/ML Syringe IV ×2 (13:16→14:24)
--- NOTE | 2019-05-24 13:29 | RAD_ITS ---
STUDY: X-RAY - ABDOMEN/PELVIS REASON FOR EXAM: Male, 48 years old. Advanced ng 5-6 cm TECHNIQUE: Single AP view of the abdomen / pelvis. COMPARISON: May 24, 2019 FINDINGS: This is a image of the chest abdomen. NG tube is been advanced the tip is in the stomach. There are partially visualized distention of the bowel loops. There is a suggestion of gas underlying the right-sided hemidiaphragm suggesting minimal pneumomediastinum which is likely associated with the recent surgery. RAD/Abdomen Single View IMPRESSION: Post surgery today. Etiology of the subtle pneumoperitoneum. NG tube is been advanced and is in satisfactory position. Partially visualized distention of the bowel. Electronically Signed: Shobha Teixeira MD at 17:02 EDT Tel , Service support ,
--- NOTE | 2019-05-24 13:29 | NURSING ---
KUB that was taken in Recovery room d/t NG being pulled out when pt was extubated states to advance it 5-10cm. This nurse advanced it 9cm at this time. Ordered another KUB. NG is still clamped and has been clamped since arriving back to the floor from surgery.
[2019-05-24] MEDS: Morphine 4 MG/ML Syringe IV ×3 (16:44→21:15)
[2019-05-25] MEDS: Morphine 4 MG/ML Syringe IV ×7 (00:07→20:23)
[2019-05-25] MEDS: BENZOCAINE/MENTHOL 1 LOZENGE MUCOUS MEM ×3 (00:07→20:22)
[2019-05-25 03:48] VITALS: BP 103/70; PULSE 84; RESP 16; TEMP 36.7; O2SAT 97
[2019-05-25] MEDS: Enoxaparin 40 MG/0.4 ML Syringe SC (06:12)
[2019-05-25] MEDS: Morphine 2 MG/ML Syringe IV (06:12)
--- NOTE | 2019-05-25 06:30 | PN.SURG_ITS ---
Patient Problems: Active and Suspected Problems Acute renal failure (Acute) Inflammatory bowel disease (Acute) Hyponatremia (Acute) Bacteria in urine (Acute) Abdominal pain (Acute) Tobacco abuse (Acute) Subjective: Pt c/o pain and distention. No nausea, has been able to walk. No flatus - Physical Exam Vitals/I&O's: Vital Signs Temp Pulse Resp BP Pulse Ox 98.0 F 84 16 103/70 97 05/25/19 03:48 05/25/19 03:48 05/25/19 03:48 05/25/19 03:48 05/25/19 03:48 Oxygen Delivery Method Room Air Weight: 146 lb 6.191 oz Body Mass Index (BMI) 20.9 Intake and Output for Last 24 Hours 05/23/19 05/24/19 05/25/19 23:59 23:59 23:59 Intake Total 3644.33 / 3644.33 3627.25 / 3627.25 187 / 187 Output Total 3025 / 3025 956 / 956 1375 / 1375 Balance 619.33 / 619.33 2671.25 / 2671.25 -1188 / -1188 Abdomen: Bowel Sounds Not Present, Distended, Tender - copious RUTH ANN and wound drainage with saturated dressing Microbiology Past 72 Hours 05/20/19 10:20 Urine, Clean Catch Urine Culture - Final Culture exhibits no growth. 05/20/19 12:00 Blood Culture (Wb) - Anticubital Left Blood Culture - Preliminary No growth in 48 hours. 05/20/19 12:00 Blood Culture (Wb) - Anticubital Left Blood Culture - Preliminary No growth in 48 hours. Laboratory Results 05/24/19 08:20: Hgb 10.1 L, Hct 30.9 L 05/24/19 08:20: Blood Type A POSITIVE, Antibody Screen NEGATIVE Current Medications Enoxaparin Sodium (Lovenox) 40 mg SC DAILY@0600 [facility] Last Admin: 05/25/19 06:12 Dose: 40 mg Documented by: Sodium Chloride () 1,000 mls @ 100 mls/hr IV .Q10H [facility] Last Admin: 05/24/19 23:07 Dose: 100 mls/hr Documented by: Piperacillin Sod/Tazobactam (Sod 3.375 gm/ Sodium Chloride) 50 mls @ 12.5 mls/hr IV Q8 [facility] Last Admin: 05/25/19 06:12 Dose: 12.5 mls/hr Documented by: Sodium Chloride () 250 mls @ 15 mls/hr IV .[id number] PRN PRN Reason: Saline Flush Last Infusion: 05/25/19 06:23 Dose: 0 mls/hr Documented by: Famotidine 20 mg/ Sodium (Chloride) 10 mls @ 300 mls/hr IV Q24 [facility] Last Infusion: 05/24/19 13:05 Dose: Infused Documented by: Melatonin (Melatonin) 3 mg PO QHS PRN PRN PRN Reason: INSOMNIA Morphine Sulfate () 2 - 4 mg IV Q2H PRN PRN PRN Reason: Pain Score 4-10/10 Last Admin: 05/25/19 06:12 Dose: 2 mg Documented by: Morphine Sulfate () 2 - 4 mg IV Q2H PRN PRN PRN Reason: Pain Score 4-10/10 Last Admin: 05/25/19 03:36 Dose: 4 mg Documented by: Nicotine (Nicoderm Cq (Pbkc)) 14 mg TRANSDERM. DAILY [facility] Last Admin: 05/24/19 13:01 Dose: 14 mg Documented by: Ondansetron HCl (Zofran) 4 mg IV Q6H PRN PRN PRN Reason: NAUSEA/VOMITING Last Admin: 05/20/19 23:39 Dose: 4 mg Documented by: Phenol/Menthol (Chloraseptic (Bkc)) 2 spray MUCOUS MEM Q2H PRN PRN PRN Reason: SORE THROAT Last Admin: 05/20/19 23:39 Dose: 2 sprays Documented by: Sodium Chloride () 10 - 40 ml IV UD PRN PRN Reason: SALINE FLUSH Last Admin: 05/24/19 18:52 Dose: 10 ml Documented by: Throat Lozenges (Cepacol Sore Throat Lozenge) 1 lozenge MUCOUS MEM Q2H PRN PRN PRN Reason: SORE THROAT Last Admin: 05/25/19 00:07 Dose: 1 lozenge Documented by: Medical Necessity - Tobacco Use Smoking Status: Current every day smoker Tobacco Use: Cigarettes Assessment/Plan All Active Problems Acute renal failure (Acute) Inflammatory bowel disease (Acute) Hyponatremia (Acute) Bacteria in urine (Acute) Abdominal pain (Acute) Tobacco abuse (Acute) Dressing changed and bethany slightly advanced Will need to keep NGT and RUTH ANN for now Continue care. Preop ileus continues. NO evidence for SBO as suggested on imaging
[2019-05-25 06:39] LABS: Absolute Lymphocyte Count 1.51 X10^3/uL (0.83-4.51); Absolute Neutrophil Count 7.7 X10^3/uL (2.0-7.7); Basophil# 0.01 X10^3/uL; Basophil% 0.1 % (0-1); Eosinophil# 0.02 X10^3/uL; Eosinophils% 0.2 % (0-5); Hematocrit 29.5 % (40-54); Hemoglobin 9.6 g/dL (13.0-16.5); Lymphocyte # 1.51 X10^3/ul (4.0); Lymphocyte % 14.3 % (19-41); Mean Corp Hgb Conc 32.5 g/dL (32-36); Mean Corpuscular Hgb 29.9 pg (27.0-32.0); Mean Corpuscular Volume 91.9 fL (80-94); Mean Platelet Vol. 9.9 fl (6.2-12.0); Monocyte# 1.11 X10^3/uL; Monocyte% 10.5 % (0-10); NRBC Flagged by Analyzer 0 % (0-5); Neutrophil # 7.67 X10^3/uL (2.7-7.7); Neutrophil % 72.9 % (47-70); POSITIVE MORPHOLOGY YES; Platelet Count 233 K/mm3 (150-450); RBC Distribution Width CV 14.3 % (11.6-14.6); RBC Distribution Width SD 48.1 fl (35.1-43.9); Red Blood Count 3.21 M/mm3 (4.6-6.2); White Blood Count 10.5 K/mm3 (4.4-11.0)
[2019-05-25 07:03] LABS: Anion Gap 6 (5-15); BUN 20 mg/dL (7-18); BUN/Creat Ratio 30.2 RATIO (10-20); Chloride 110 mmol/L (98-107); Creatinine, Serum 0.66 mg/dL (0.70-1.30); EST Glomerular Filtration Rate 136 mL/min (>60); Est Glom Filt Rate - Afr Amer 164 mL/min (>60); Estimated Creatinine Clearance 128.55 ml/min; Glucose 106 mg/dL (74-106); Potassium 3.2 mmol/L (3.5-5.1); Sodium Level 143 mmol/L (136-145)
[2019-05-25 07:20] LABS: Differential Indicated SCAN CRITERIA MET
[2019-05-25 07:29] LABS: Reactive Lymphocyte 1+
[2019-05-25] MEDS: 0.9% Saline Lock 10 ML Syringe IV ×6 (08:40→13:46)
[2019-05-25 08:42] VITALS: BP 110/69; PULSE 76; RESP 18; TEMP 37.2; O2SAT 98
--- NOTE | 2019-05-25 09:35 | PN_ITS ---
Patient Problems: Active and Suspected Problems Acute renal failure (Acute) Inflammatory bowel disease (Acute) Hyponatremia (Acute) Bacteria in urine (Acute) Abdominal pain (Acute) Tobacco abuse (Acute) Subjective: Patient seen and examined. He had emergent laparotomy today with findings of perforated appendicitis. Today is POD 1. He complains of 8/10 pain in lower abdomen. HE denies nausea, vomiting, fever or chills or diarrhea. Reivew of systems otherwise negative. He has remained hemodynamically stable. Potassium is 3.2 today. WBC is 10.5. Vitals/I&O's: Vital Signs Temp Pulse Resp BP Pulse Ox 99.0 F 76 18 110/69 98 05/25/19 08:42 05/25/19 08:42 05/25/19 08:42 05/25/19 08:42 05/25/19 08:42 Oxygen Delivery Method Room Air Weight: 146 lb 6.191 oz Body Mass Index (BMI) 20.9 Intake and Output for Last 24 Hours 05/23/19 05/24/19 05/25/19 23:59 23:59 23:59 Intake Total 3644.33 / 3644.33 3627.25 / 3627.25 1135.33 / 1135.33 Output Total 3025 / 3025 956 / 956 1375 / 1375 Balance 619.33 / 619.33 2671.25 / 2671.25 -239.67 / -239.67 General: Alert, Oriented x3, Cooperative, No apparent distress HEENT: Atraumatic, PERRLA, EOMI, Normocephalic Oral: Moist Mucosa Neck: Supple, No JVD, Negative Carotid Bruits Lungs: Clear to auscultation, Normal air movement, No rhonchi, No wheeze Cardiovascular: Regular rate, Regular Rhythm, Normal S1, Normal S2, No murmurs Abdomen: Bowel Sounds present, Soft, moderate generalised tenderness, no guarding or rebound tenderness. NG tube in place. 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 05/20/19 12:00 Blood Culture (Wb) - Anticubital Left Blood Culture - Preliminary No growth in 48 hours. 05/20/19 12:00 Blood Culture (Wb) - Anticubital Left Blood Culture - Preliminary No growth in 48 hours. Laboratory Results 05/25/19 06:25: WBC 10.5, RBC 3.21 L, Hgb 9.6 L, Hct 29.5 L, MCV 91.9, MCH 29.9, MCHC 32.5, RDW Std Deviation 48.1 H, RDW Coeff of Manuela 14.3, Plt Count 233, MPV 9.9, Immature Gran % (Auto) 2.000 H, Neut % (Auto) 72.9 H, Lymph % (Auto) 14.3 L , [place] % (Auto) 10.5 H, Eos % (Auto) 0.2, Baso % (Auto) 0.1, Absolute Neuts (auto) 7.7, Absolute Lymphs (auto) 1.51, Nucleated RBC % 0, Reactive Lymphocytes 1+ 05/25/19 06:25: Sodium 143, Potassium 3.2 L, Chloride 110 H, Carbon Dioxide 27.0, Anion Gap 6, BUN 20 H, Creatinine 0.66 L, Estim Creat Clear Calc 128.55, Est GFR (MDRD) Af Amer 164, Est GFR (MDRD) Non-Af 136, BUN/Creatinine Ratio 30.2 H, Glucose 106, Calcium 8.0 L Diagnostic Data Abdomen/Pelvis CT 05/20/19 08:03 IMPRESSION: Findings in the right lower quadrant as described. The differential diagnosis should include appendicitis versus inflammatory bowel disease. A delayed CT scan to assess contrast migration is recommended. Electronically Signed: Chuy Galvan, at 10:02 EDT , Service support , Limited or Localized CT 05/20/19 11:00 IMPRESSION: There is evidence of a small bowel dilatation as well as thickening of the mucosa and the small bowel wall in several small bowel loops in the pelvis and right lower quadrant with increased markings in the surrounding peritoneal fat. The differential diagnosis to consider should include inflammatory bowel disease such as Crohn versus appendicitis. Electronically Signed: Chuy Cole, at 11:21 EDT , Service support , Small Bowel X-Ray 05/22/19 09:35 IMPRESSION: Small bowel obstruction with delayed visualization of a nondistended bladder right; at 5 hours following the placement of Gastrografin. Electronically Signed: Chuy Cole, at 15:38 EDT , Service support , Abdomen X-Ray 05/24/19 06:00 IMPRESSION: Small bowel obstruction/high-grade partial small bowel obstruction. The NG tube is high and should be advanced further into the stomach 5-10 cm. Recommend consideration for follow-up CT scan of the abdomen and pelvis. Electronically Signed: Shobha Teixeira MD at 8:38 EDT Tel , Service support , ADDENDUM: 05/24/19 0900 IMPRESSION: Small bowel obstruction/high-grade partial small bowel obstruction. The NG tube is high and should be advanced further into the stomach 5-10 cm. Recommend consideration for follow-up CT scan of the abdomen and pelvis. N.B. : The above information has been verbally conveyed by Shobha Teixeira MD to Silvestre [id number], MD, on 05/24/2019 08:53:17 (ET). Electronically Signed: Shobha Teixeira MD at 8:38 EDT Tel , Service support , KUB X-Ray 05/24/19 13:29 IMPRESSION: Post surgery today. Etiology of the subtle pneumoperitoneum. NG tube is been advanced and is in satisfactory position. Partially visualized distention of the bowel. Electronically Signed: Shobha Teixeira MD at 17:02 EDT Tel , Service support , Current Medications Enoxaparin Sodium (Lovenox) 40 mg SC DAILY@0600 [facility] Last Admin: 05/25/19 06:12 Dose: 40 mg Documented by: Piperacillin Sod/Tazobactam (Sod 3.375 gm/ Sodium Chloride) 50 mls @ 12.5 mls/hr IV Q8 [facility] Last Admin: 05/25/19 06:12 Dose: 12.5 mls/hr Documented by: Sodium Chloride () 250 mls @ 15 mls/hr IV .[id number] PRN PRN Reason: Saline Flush Last Infusion: 05/25/19 06:23 Dose: 0 mls/hr Documented by: Famotidine 20 mg/ Sodium (Chloride) 10 mls @ 300 mls/hr IV Q24 [facility] Last Infusion: 05/24/19 13:05 Dose: Infused Documented by: Potassium Chloride/Sodium Chloride () 1,000 mls @ 80 mls/hr IV .[id number] [facility] Last Admin: 05/25/19 08:36 Dose: 80 mls/hr Documented by: Melatonin (Melatonin) 3 mg PO QHS PRN PRN PRN Reason: INSOMNIA Morphine Sulfate () 2 - 4 mg IV Q2H PRN PRN PRN Reason: Pain Score 4-10/10 Last Admin: 05/25/19 06:12 Dose: 2 mg Documented by: Morphine Sulfate () 2 - 4 mg IV Q2H PRN PRN PRN Reason: Pain Score 4-10/10 Last Admin: 05/25/19 08:40 Dose: 4 mg Documented by: Nicotine (Nicoderm Cq (Pbkc)) 14 mg TRANSDERM. DAILY [facility] Last Admin: 05/24/19 13:01 Dose: 14 mg Documented by: Ondansetron HCl (Zofran) 4 mg IV Q6H PRN PRN PRN Reason: NAUSEA/VOMITING Last Admin: 05/20/19 23:39 Dose: 4 mg Documented by: Phenol/Menthol (Chloraseptic (Bkc)) 2 spray MUCOUS MEM Q2H PRN PRN PRN Reason: SORE THROAT Last Admin: 05/20/19 23:39 Dose: 2 sprays Documented by: Sodium Chloride () 10 - 40 ml IV UD PRN PRN Reason: SALINE FLUSH Last Admin: 05/25/19 08:40 Dose: 10 ml Documented by: Throat Lozenges (Cepacol Sore Throat Lozenge) 1 lozenge MUCOUS MEM Q2H PRN PRN PRN Reason: SORE THROAT Last Admin: 05/25/19 00:07 Dose: 1 lozenge Documented by: STROKE Vital Signs/Narrative: Vital Signs Temp Pulse Resp BP Pulse Ox 05/25/19 08:42 99.0 F 76 18 110/69 98 Medical Necessity - Tobacco Use Smoking Status: Current every day smoker Tobacco Use: Cigarettes Assessment/Plan All Active Problems Acute renal failure (Acute) Inflammatory bowel disease (Acute) Hyponatremia (Acute) Bacteria in urine (Acute) Abdominal pain (Acute) Tobacco abuse (Acute) 1. Perforated appendicitis and small bowel obstruction * had emergent surgery yesterday, with findings of perforated appendix * today is POD 1 * complains of 8/10 pain in abdomen, especially with movmeent * on IV zosyn * Hemoglobin is 9.6 today * general surgery on board * on IV pain meds * 2. Hypokalemia: K is 3.2 today. Will replace and monitor 3. Sepsis due to gastroenteritis and perforated appendix * on IV zosyn. * 4. UTI:urine culture and blood culture are negative. Currently on IV Zosyn. 5. PTSD: Follows up with his psychiatrist. On clonazepam and duloxetine as well as amitriptyline. GI prophylaxis; IV famotidine DVT prophylaxis: Lovenox Inpatient E&M: [id number] [facility] L3
[2019-05-25] MEDS: Famotidine 200 MG/20 ML MDV 20 MG in 0.9% Normal Saline (Pres. free 8 ML 300 MG IV (10:15)
[2019-05-25 10:25] VITALS: PULSE 68
[2019-05-25] MEDS: Potassium Chloride 10mEq/100mL 10 MEQ/100 ML IV.SOLN. 100 MEQ IV BOLUS ×3 (14:30→16:29)
[2019-05-25 14:38] VITALS: BP 112/69; PULSE 83; RESP 16; TEMP 37.1; O2SAT 99
[2019-05-25 15:15] VITALS: RESP 16; O2SAT 98
[2019-05-25 20:05] VITALS: BP 119/74; PULSE 88; RESP 16; TEMP 36.8; O2SAT 97
[2019-05-26] VITALS (40 sets, daily range): BP systolic 81–119; BP diastolic 39–80; PULSE 46–109; RESP 10–22; TEMP 36.5–37.7; O2SAT 94–100
[2019-05-26] MEDS: Morphine 4 MG/ML Syringe IV (01:43)
[2019-05-26] MEDS: Enoxaparin 40 MG/0.4 ML Syringe SC (05:02)
--- NOTE | 2019-05-26 06:22 | PCM.PN.SRG ---
Patient Problems: Active and Suspected Problems Acute renal failure (Acute) Inflammatory bowel disease (Acute) Hyponatremia (Acute) Bacteria in urine (Acute) Abdominal pain (Acute) Tobacco abuse (Acute) Subjective: Pt feeling a little better, some loose stool, no significant flatus - Physical Exam Vitals/I&O's: Vital Signs Temp Pulse Resp BP Pulse Ox 97.9 F 83 16 106/72 99 05/26/19 02:15 05/26/19 02:15 05/26/19 02:15 05/26/19 02:15 05/26/19 02:15 Oxygen Delivery Method Room Air Weight: 146 lb 6.191 oz Body Mass Index (BMI) 20.9 Intake and Output for Last 24 Hours 05/24/19 05/25/19 05/26/19 23:59 23:59 23:59 Intake Total 3627.25 / 3627.25 3182.58 / 3302.58 330 / 330 Output Total 956 / 956 3120 / 3945 1125 / 1125 Balance 2671.25 / 2671.25 62.58 / -642.42 -795 / -795 Abdomen: Hypoactive Bowel Sounds - RUTH ANN serous, wound minimal erythema and light drainage, Distended Microbiology Past 72 Hours 05/20/19 12:00 Blood Culture (Wb) - Anticubital Left Blood Culture - Final No growth in 5 days. 05/20/19 12:00 Blood Culture (Wb) - Anticubital Left Blood Culture - Final No growth in 5 days. 05/24/19 10:44 Incision/Surgical Site Gram Stain - Final 05/24/19 10:44 Incision/Surgical Site Wound Culture - Preliminary GNR lactose reading specialist Alpha Hemolytic Streptococcus Laboratory Results 05/25/19 06:25: WBC 10.5, RBC 3.21 L, Hgb 9.6 L, Hct 29.5 L, MCV 91.9, MCH 29.9, MCHC 32.5, RDW Std Deviation 48.1 H, RDW Coeff of Manuela 14.3, Plt Count 233, MPV 9.9, Immature Gran % (Auto) 2.000 H, Neut % (Auto) 72.9 H, Lymph % (Auto) 14.3 L, [place] % (Auto) 10.5 H, Eos % (Auto) 0.2, Baso % (Auto) 0.1, Absolute Neuts (auto) 7.7, Absolute Lymphs (auto) 1.51, Nucleated RBC % 0, Reactive Lymphocytes 1+ 05/25/19 06:25: Sodium 143, Potassium 3.2 L, Chloride 110 H, Carbon Dioxide 27.0, Anion Gap 6, BUN 20 H, Creatinine 0.66 L, Estim Creat Clear Calc 128.55, Est GFR (MDRD) Af Amer 164, Est GFR (MDRD) Non-Af 136, BUN/Creatinine Ratio 30.2 H, Glucose 106, Calcium 8.0 L Current Medications Enoxaparin Sodium (Lovenox) 40 mg SC DAILY@0600 [facility] Last Admin: 05/26/19 05:02 Dose: 40 mg Documented by: Piperacillin Sod/Tazobactam (Sod 3.375 gm/ Sodium Chloride) 50 mls @ 12.5 mls/hr IV Q8 [facility] Last Admin: 05/26/19 05:01 Dose: 12.5 mls/hr Documented by: Sodium Chloride () 250 mls @ 15 mls/hr IV .[id number] PRN PRN Reason: Saline Flush Last Infusion: 05/25/19 11:50 Dose: 0 mls/hr Documented by: Potassium Chloride/Sodium Chloride () 1,000 mls @ 80 mls/hr IV .[id number] [facility] Last Admin: 05/25/19 21:55 Dose: 80 mls/hr Documented by: Pantoprazole Sodium 40 mg/ (Sodium Chloride) 110 mls @ 330 mls/hr IV Q24 [facility] Last Admin: 05/25/19 14:30 Dose: Not Given Documented by: Melatonin (Melatonin) 3 mg PO QHS PRN PRN PRN Reason: INSOMNIA Morphine Sulfate () 2 - 4 mg IV Q2H PRN PRN PRN Reason: Pain Score 4-10/10 Last Admin: 05/25/19 06:12 Dose: 2 mg Documented by: Morphine Sulfate () 2 - 4 mg IV Q2H PRN PRN PRN Reason: Pain Score 4-10/10 Last Admin: 05/26/19 01:43 Dose: 4 mg Documented by: Nicotine (Nicoderm Cq (Pbkc)) 14 mg TRANSDERM. DAILY [facility] Last Admin: 05/25/19 10:14 Dose: 14 mg Documented by: Ondansetron HCl (Zofran) 4 mg IV Q6H PRN PRN PRN Reason: NAUSEA/VOMITING Last Admin: 05/20/19 23:39 Dose: 4 mg Documented by: Phenol/Menthol (Chloraseptic (Bkc)) 2 spray MUCOUS MEM Q2H PRN PRN PRN Reason: SORE THROAT Last Admin: 05/20/19 23:39 Dose: 2 sprays Documented by: Sodium Chloride () 10 - 40 ml IV UD PRN PRN Reason: SALINE FLUSH Last Admin: 05/25/19 13:46 Dose: 10 ml Documented by: Throat Lozenges (Cepacol Sore Throat Lozenge) 1 lozenge MUCOUS MEM Q2H PRN PRN PRN Reason: SORE THROAT Last Admin: 05/25/19 20:22 Dose: 1 lozenge Documented by: Medical Necessity - Tobacco Use Smoking Status: Current every day smoker Tobacco Use: Cigarettes Assessment/Plan All Active Problems Acute renal failure (Acute) Inflammatory bowel disease (Acute) Hyponatremia (Acute) Bacteria in urine (Acute) Abdominal pain (Acute) Tobacco abuse (Acute) NGT removed RUTH ANN removed Ludin advanced Will observe as he still has a significant preop ileus Labs all improved with WBC and shift normal and renal fxn better Treating for possible stress gastritis with PPI No indication for EGD at this time, continue intensive medical treatment
[2019-05-26 06:48] LABS: Absolute Lymphocyte Count 1.68 X10^3/uL (0.83-4.51); Absolute Neutrophil Count 5.8 X10^3/uL (2.0-7.7); Basophil# 0.02 X10^3/uL; Basophil% 0.2 % (0-1); Eosinophil# 0.17 X10^3/uL; Hemoglobin 7.9 g/dL (13.0-16.5); Lymphocyte # 1.68 X10^3/ul (4.0); Lymphocyte % 19.3 % (19-41); Mean Corp Hgb Conc 31.6 g/dL (32-36); Mean Corpuscular Hgb 29.9 pg (27.0-32.0); Mean Corpuscular Volume 94.7 fL (80-94); Mean Platelet Vol. 9.9 fl (6.2-12.0); Monocyte# 0.78 X10^3/uL; NRBC Flagged by Analyzer 0 % (0-5); Neutrophil % 66.6 % (47-70); POSITIVE MORPHOLOGY YES; Platelet Count 233 K/mm3 (150-450); RBC Distribution Width CV 14.2 % (11.6-14.6); Red Blood Count 2.64 M/mm3 (4.6-6.2); White Blood Count 8.7 K/mm3 (4.4-11.0)
[2019-05-26 06:50] LABS: Differential Indicated SCAN CRITERIA MET
[2019-05-26 07:06] LABS: Atypical Lymphocyte RARE %; Differential Comment SCANNED; Platelet Estimate ADEQUATE (ADEQ)
[2019-05-26 07:12] LABS: Anion Gap 8 (5-15); BUN 19 mg/dL (7-18); BUN/Creat Ratio 38.2 RATIO (10-20); Calcium,Total 7.6 mg/dL (8.5-10.1); Chloride 108 mmol/L (98-107); EST Glomerular Filtration Rate 189 mL/min (>60); Est Glom Filt Rate - Afr Amer 229 mL/min (>60); Estimated Creatinine Clearance 169.69 ml/min; Glucose 97 mg/dL (74-106); Potassium 3.6 mmol/L (3.5-5.1); Sodium Level 144 mmol/L (136-145)
[2019-05-26] MEDS: Morphine 2 MG/ML Syringe IV ×2 (08:53→21:07)
[2019-05-26] MEDS: BENZOCAINE/MENTHOL 1 LOZENGE MUCOUS MEM (09:05)
--- NOTE | 2019-05-26 10:21 | PN_ITS ---
Patient Problems: Active and Suspected Problems Acute renal failure (Acute) Inflammatory bowel disease (Acute) Hyponatremia (Acute) Bacteria in urine (Acute) Abdominal pain (Acute) Tobacco abuse (Acute) Subjective: Patient seen and examined. He states he feels much better today. Abdominal pain has improved he denies any nausea vomiting. He is having bowel movements and states he has had some episodes of diarrhea since he was started on clear liquids. Review of stems otherwise negative. Hemoglobin is down to 7.9 today and WBC is 8.7. NG tube and abdominal drain were removed per general surgery today. Patient later in the day, patient became hypotensive after getting up to go the bathroom. His BP dropped to 90/40mmhg. Patient was emergently resuscitated with IVF Normal saline bolus of 1L. Stat H&H was ordered. General [facility] informed and patient to be emergently taken for EGD as there was suspicion for coffee jessica und fluid in the NG tube when it was removed this morning. Vitals/I&O's: Vital Signs Temp Pulse Resp BP Pulse Ox 98.1 F 89 16 109/55 L 97 05/26/19 08:15 05/26/19 08:15 05/26/19 08:15 05/26/19 08:15 05/26/19 08:15 Oxygen Delivery Method Room Air Weight: 146 lb 6.191 oz Body Mass Index (BMI) 20.9 Intake and Output for Last 24 Hours 05/24/19 05/25/19 05/26/19 23:59 23:59 23:59 Intake Total 3627.25 / 3627.25 3182.58 / 3302.58 1223.33 / 1223.33 Output Total 956 / 956 3120 / 3945 1385 / 1385 Balance 2671.25 / 2671.25 62.58 / -642.42 -161.67 / -161.67 General: Alert, Oriented x3, Cooperative, No apparent distress HEENT: Atraumatic, PERRLA, EOMI, Normocephalic Oral: Moist Mucosa Neck: Supple, No JVD, Negative Carotid Bruits Lungs: Clear to auscultation, Normal air movement, No rhonchi, No wheeze Cardiovascular: Regular rate, Regular Rhythm, Normal S1, Normal S2, No murmurs Abdomen: Bowel Sounds present, Minimal generalised tenderness, no guarding or rebound tenderness. NG tube removed. Intact dressing over lower abdomen Extremities: No clubbing, No cyanosis, No edema, Capillary Refill Less than 3 Seconds Skin: No rashes, No breakdown Musculoskeletal: No Tenderness to Palpation of Joints or Extremities Lymphatic: No Cervical, Supraclavicular, or Inguinal Adenopathy Neurological: Cranial nerves II-XII grossly intact, Neuro grossly intact, Motor Exam 5/5 strength throughout Psych/Mental Status: Normal Affect, Appropriate, Alert and oriented to time, place, person, mood and affect Microbiology Past 72 Hours 05/24/19 10:44 Incision/Surgical Site Gram Stain - Final 05/24/19 10:44 Incision/Surgical Site Wound Culture - Preliminary Escherichia coli Alpha Hemolytic Streptococcus 05/24/19 10:44 Incision/Surgical Site Anaerobic Culture - Preliminary Checking for anaerobes, further studies to follow. 05/20/19 12:00 Blood Culture (Wb) - Anticubital Left Blood Culture - Final No growth in 5 days. 05/20/19 12:00 Blood Culture (Wb) - Anticubital Left Blood Culture - Final No growth in 5 days. Laboratory Results 05/26/19 06:18: WBC 8.7, RBC 2.64 L, Hgb 7.9 L, Hct 25.0 L, MCV 94.7 H, MCH 29.9, MCHC 31.6 L, RDW Std Deviation 49.0 H, RDW Coeff of Manuela 14.2, Plt Count 233, MPV 9.9, Immature Gran % (Auto) 2.900 H, Neut % (Auto) 66.6, Lymph % (Auto) 19.3, Brooke % (Auto) 9.0, Eos % (Auto) 2.0, Baso % (Auto) 0.2, Absolute Neuts (auto) 5.8, Absolute Lymphs (auto) 1.68, Nucleated RBC % 0, Differential Comment SCANNED, Atypical Lymphocytes RARE, Platelet Estimate ADEQUATE 05/26/19 06:18: Sodium 144, Potassium 3.6, Chloride 108 H, Carbon Dioxide 28.0, Anion Gap 8, BUN 19 H, Creatinine 0.50 L, Estim Creat Clear Calc 169.69, Est GFR (MDRD) Af Amer 229, Est GFR (MDRD) Non-Af 189, BUN/Creatinine Ratio 38.2 H, Glucose 97, Calcium 7.6 L Current Medications Enoxaparin Sodium (Lovenox) 40 mg SC DAILY@0600 [facility] Last Admin: 05/26/19 05:02 Dose: 40 mg Documented by: Piperacillin Sod/Tazobactam (Sod 3.375 gm/ Sodium Chloride) 50 mls @ 12.5 mls/hr IV Q8 [facility] Last Admin: 05/26/19 05:01 Dose: 12.5 mls/hr Documented by: Sodium Chloride () 250 mls @ 15 mls/hr IV .[id number] PRN PRN Reason: Saline Flush Last Infusion: 05/25/19 11:50 Dose: 0 mls/hr Documented by: Potassium Chloride/Sodium Chloride () 1,000 mls @ 80 mls/hr IV .[id number] [facility] Last Infusion: 05/26/19 09:05 Dose: 0 mls/hr Documented by: Pantoprazole Sodium 40 mg/ (Sodium Chloride) 110 mls @ 330 mls/hr IV Q24 [facility] Last Admin: 05/26/19 09:05 Dose: 330 mls/hr Documented by: Melatonin (Melatonin) 3 mg PO QHS PRN PRN PRN Reason: INSOMNIA Morphine Sulfate () 2 - 4 mg IV Q2H PRN PRN PRN Reason: Pain Score 4-10/10 Last Admin: 05/26/19 08:53 Dose: 2 mg Documented by: Morphine Sulfate () 2 - 4 mg IV Q2H PRN PRN PRN Reason: Pain Score 4-10/10 Last Admin: 05/26/19 01:43 Dose: 4 mg Documented by: Nicotine (Nicoderm Cq (Pbkc)) 14 mg TRANSDERM. DAILY [facility] Last Admin: 05/26/19 08:53 Dose: 14 mg Documented by: Ondansetron HCl (Zofran) 4 mg IV Q6H PRN PRN PRN Reason: NAUSEA/VOMITING Last Admin: 05/20/19 23:39 Dose: 4 mg Documented by: Phenol/Menthol (Chloraseptic (Bkc)) 2 spray MUCOUS MEM Q2H PRN PRN PRN Reason: SORE THROAT Last Admin: 05/20/19 23:39 Dose: 2 sprays Documented by: Sodium Chloride () 10 - 40 ml IV UD PRN PRN Reason: SALINE FLUSH Last Admin: 03/23/20 13:46 Dose: 10 ml Documented by: Sucralfate (Carafate) 1 gm PO 1HR_ACHS TAMEKA Throat Lozenges (Cepacol Sore Throat Lozenge) 1 lozenge MUCOUS MEM Q2H PRN PRN PRN Reason: SORE THROAT Last Admin: 05/26/19 09:05 Dose: 1 lozenge Documented by: STROKE Vital Signs/Narrative: Vital Signs Temp Pulse Resp BP Pulse Ox 05/26/19 08:15 98.1 F 89 16 109/55 L 97 Medical Necessity - Tobacco Use Smoking Status: Current every day smoker Tobacco Use: Cigarettes Assessment/Plan All Active Problems Acute renal failure (Acute) Inflammatory bowel disease (Acute) Hyponatremia (Acute) Bacteria in urine (Acute) Abdominal pain (Acute) Tobacco abuse (Acute) 1. Perforated appendicitis and small bowel obstruction * had emergent surgery, with findings of perforated appendix * today is POD 2 * abdominal pain is much better today * on IV zosyn; today is day 6. Will consider stopping zosyn tomorrow * Hemoglobin is down to 7.9 today * general surgery on board * on IV pain meds * started on sips and chips today, to advance as tolerated, per general surgery * wound cultuerd E coli and alpha hemolytic streptococcus * 2. UGI bleed due to bleeding peptic ulcer * Patient's hemoglobin had dropped to 7.9 this morning. Later in the morning, patient started feeling dizzy and had a sudden drop in his blood pressure after he got up to use the bathroom. Blood pressure dropped to 90/40. * Stat H&H ordered showed hemoglobin of 5.9. Start 2 units of packed red blood cells was ordered and patient was emergently taken EGD by general surgery. * EGD showed gastric erosions with stigmata of chronic bleeding and blood in the duodenal bulb and in the second portion of the duodenum as well as 2 spurting duodenal ulcers with a visible vessel. Epinephrine were injected and clips were placed and there was also treated with argon beam coagulation. A third also not bleeding at that time was treated with epinephrine injection. * Patient now on IV pantoprazole continuous infusion. * 3. Acute anemia due to upper GI bleed: As under 2. 4. Hypokalemia: K is 3.6 today. 5. Sepsis due to gastroenteritis and perforated appendix * on IV zosyn. * 6. UTI:urine culture and blood culture are negative. Currently on IV Zosyn. 7. PTSD: Follows up with his psychiatrist. On clonazepam and duloxetine as well as amitriptyline. GI prophylaxis; now on IV pantoprazole infusion DVT prophylaxis: SCDs; lovenox dc'd Disposition: patient transferred to PCU stepdown for closer monitoring Inpatient E&M: 11700 Subs Hosp L3
[2019-05-26] MEDS: Ondansetron 4 MG/2 ML Vial IV (10:59)
[2019-05-26] MEDS: 0.9% Saline Lock 10 ML Syringe IV ×2 (10:59→21:08)
[2019-05-26] MEDS: 0.9% Normal Saline 1,000 ML 999 ML IV (11:17)
[2019-05-26 11:32] LABS: Hematocrit 18.6 % (40-54); POSITIVE COUNT YES
[2019-05-26 11:39] LABS: Hemoglobin 5.9 g/dL (13.0-16.5)
--- NOTE | 2019-05-26 12:30 | NURSING ---
PT ESCORTED TO ENDO/AC VIA BED.
--- NOTE | 2019-05-26 12:43 | PN_ITS ---
Progress Note Despite being on famotidine since his admission and being converted over to pantoprazole on the day of his surgery it appears that he is having an acute upper GI bleed. He was prescribed Carafate earlier today anticipating possible gastritis. He became vagal on the commode having diarrhea with dark stool. I suspect an upper GI source. Hemoglobin has dropped. I recommended urgent upper endoscopy with potential control of bleeding. We have an operating room available and we will be able to proceed in a much more rapid process that he wi ll be able to receive a transfusion of blood. The patient is aware he will will need to have the blood transfusion whenever it becomes available. Silvestre Urias M.D., F.A.C.S. STROKE Vital Signs/Narrative: Vital Signs Temp Pulse Resp BP Pulse Ox 05/26/19 12:21 101 H 16 89/49 L 100 05/26/19 12:06 94 16 102/57 L 100 05/26/19 12:00 97.7 F L 94 16 90/43 L 100 05/26/19 11:47 90 18 100/46 L 100 05/26/19 11:25 46 L 18 96/45 L 99 05/26/19 11:15 58 L 20 H 89/53 L 100 05/26/19 11:05 55 L 20 H 90/40 L 97 05/26/19 11:00 54 L 92/39 L
--- NOTE | 2019-05-26 14:19 | PCM.PN.BLA ---
Progress Note Two visible vessel duodenal bleeding ulcers identified. Treated and currently maintained. Large amount of rectal bleeding suspected from bleed. Will check cbc after 2nd unit blood and will have 2 more units ready if indicated. Pt will be sent to PCU. Discussed case with Dr Davila. Jer STROKE Vital Signs/Narrative: Vital Signs Temp Pulse Resp BP BP Pulse Ox 05/26/19 12:53 99.5 F H 109 H 16 81/48 L 100 05/26/19 12:48 99.3 F H 103 H 16 89/55 L 100 05/26/19 12:40 99.8 F H 107 H 16 91/55 L 100 05/26/19 12:21 101 H 16 89/49 L 100 05/26/19 12:06 94 16 102/57 L 100 05/26/19 12:00 97.7 F L 94 16 90/43 L 100 05/26/19 11:47 90 18 100/46 L 100 05/26/19 11:25 46 L 18 96/45 L 99 05/26/19 11:15 58 L 20 H 89/53 L 100 05/26/19 11:05 55 L 20 H 90/40 L 97 05/26/19 11:00 54 L 92/39 L
--- NOTE | 2019-05-26 14:33 | OP.CCLET_ITS ---
05/26/2019 No Primary Care Physician Re : Upper GI endoscopy procedure for Phil Romero Dear Care Physician This procedure was performed on Sunday, May 26, 2019. My impressions and recommendations are as follows: Impressions : - Normal esophagus. - Z-line variable, 38 cm from the incisors. - Gastric erosions with stigmata of recent bleeding. Not felt to be source of large degree of bleeding - Blood in the duodenal bulb and in the second portion of the duodenum. - Two spurting duodenal ulcers with a visible vessel. Epinephrine Injected. Clips were placed. Treated with argon beam coagulation. Combination of all three modalities stopped the bleeding from two ulcers. A third ulcer was not bleeding at the time and was treated with epinephrine injection - No specimens collected. Recommendations : - [facility]. - NPO. - Continue present medications. My findings are described in the full procedure note, which is enclosed. If I can be of further assistance, please feel free to contact me at Doctor phone number(s): Work: . Sincerely, Silvestre Urias MD 05/26/2019 2:33:12 PM This report has been signed electronically.
--- NOTE | 2019-05-26 14:33 | OP.EGD_ITS ---
Patient Name: Phil Romero Procedure Date: 05/26/2019 12:45 PM Date of : 1970 Age: 48 Procedure: Upper GI endoscopy Indications: Melena Providers: Silvestre Urias MD Medicines: See the Anesthesia note for documentation of the administered medications Complications: No immediate complications. Procedure: Pre-Anesthesia Assessment: - Prior to the procedure, a History and Physical was performed, and patient medications and allergies were reviewed. The patient's tolerance of previous anesthesia was also reviewed. The risks and benefits of the procedure and the sedation options and risks were discussed with the patient. All questions were answered, and informed consent was obtained. Prior Anticoagulants: The patient has taken no previous anticoagulant or antiplatelet agents. ASA Grade Assessment: III - A patient with severe systemic disease. After reviewing the risks and benefits, the patient was deemed in satisfactory condition to undergo the procedure. After obtaining informed consent, the endoscope was passed under direct vision. Throughout the procedure, the patient's blood pressure, pulse, and oxygen saturations were monitored continuously. The gastroscope was introduced through the mouth, and advanced to the second part of duodenum. The upper GI endoscopy was performed with moderate difficulty due to excessive bleeding. The patient tolerated the procedure well. Scope In: 1:14:05 PM Scope Out: 1:52:40 PM Total Procedure Duration Time 0 hours 38 minutes 35 seconds Findings: The examined esophagus was normal. The Z-line was variable and was found 38 cm from the incisors. A few non-bleeding dispersed erosions were found in the stomach. There were stigmata of recent bleeding. Red blood was found in the duodenal bulb and in the second portion of the duodenum. Two spurting duodenal ulcers with a visible vessel were found in the second portion of the duodenum. Area was successfully injected with 12 mL of a 1:10,000 solution of epinephrine for drug delivery. To stop active bleeding, two hemostatic clips were successfully placed. There was no bleeding at the end of the procedure. Coagulation for hemostasis using argon beam at 0.3 liters/minute and 20 barnett was unsuccessful. Impression: - Normal esophagus. - Z-line variable, 38 cm from the incisors. - Gastric erosions with stigmata of recent bleeding. Not felt to be source of large degree of bleeding - Blood in the duodenal bulb and in the second portion of the duodenum. - Two spurting duodenal ulcers with a visible vessel. Epinephrine Injected. Clips were placed. Treated with argon beam coagulation. Combination of all three modalities stopped the bleeding from two ulcers. A third ulcer was not bleeding at the time and was treated with epinephrine injection - No specimens collected. Recommendation: - Return patient to [facility] care. - NPO. - Continue present medications. Procedure Code(s): --- Professional --- 06227, Esophagogastroduodenoscopy, flexible, transoral; with control of bleeding, any method 59400, 59, Esophagogastroduodenoscopy, flexible, transoral; with directed submucosal injection(s), any substance Diagnosis Code(s): --- Professional --- K22.8, Other specified diseases of esophagus K25.4, Chronic or unspecified gastric ulcer with hemorrhage K92.2, Gastrointestinal hemorrhage, unspecified K26.4, Chronic or unspecified duodenal ulcer with hemorrhage K92.1, Melena (includes Hematochezia) CPT copyright 2017 [employer]. All rights reserved. The codes documented in this report are preliminary and upon hire car driver review may be revised to meet current compliance requirements. Silvestre Urias MD 05/26/2019 2:33:12 PM This report has been signed electronically. Number of Addenda: 0 Note Initiated On: 05/26/2019 12:45 PM
[2019-05-26 16:02] LABS: Absolute Lymphocyte Count 1.21 X10^3/uL (0.83-4.51); Absolute Neutrophil Count 15.7 X10^3/uL (2.0-7.7); Basophil# 0.02 X10^3/uL; Basophil% 0.1 % (0-1); Eosinophil# 0.06 X10^3/uL; Eosinophils% 0.3 % (0-5); Hematocrit 19.8 % (40-54); Hemoglobin 6.4 g/dL (13.0-16.5); Lymphocyte # 1.21 X10^3/ul (4.0); Lymphocyte % 6.4 % (19-41); Mean Corp Hgb Conc 32.3 g/dL (32-36); Mean Corpuscular Hgb 30.5 pg (27.0-32.0); Mean Corpuscular Volume 94.3 fL (80-94); Monocyte# 1.01 X10^3/uL; Monocyte% 5.4 % (0-10); NRBC Flagged by Analyzer 0 % (0-5); Neutrophil # 15.69 X10^3/uL (2.7-7.7); Neutrophil % 83.1 % (47-70); Platelet Count 128 K/mm3 (150-450); RBC Distribution Width CV 13.6 % (11.6-14.6); RBC Distribution Width SD 46.7 fl (35.1-43.9); White Blood Count 18.9 K/mm3 (4.4-11.0)
[2019-05-26 16:29] LABS: Anion Gap 5 (5-15); BUN 21 mg/dL (7-18); BUN/Creat Ratio 45.4 RATIO (10-20); Calcium,Total 6.1 mg/dL (8.5-10.1); Chloride 122 mmol/L (98-107); Creatinine, Serum 0.46 mg/dL (0.70-1.30); EST Glomerular Filtration Rate 205 mL/min (>60); Est Glom Filt Rate - Afr Amer 249 mL/min (>60); Estimated Creatinine Clearance 184.44 ml/min; Glucose 135 mg/dL (74-106); Sodium Level 149 mmol/L (136-145)
[2019-05-26] MEDS: Sucralfate 1 GM Tablet PO (22:07)
[2019-05-26 22:50] LABS: Hematocrit 22.5 % (40-54); Hemoglobin 7.4 g/dL (13.0-16.5)
[2019-05-26 22:57] LABS: Magnesium 1.6 mg/dL (1.6-2.6)
[2019-05-26 23:03] LABS: Phosphorus 2.2 mg/dL (2.5-4.9)
[2019-05-27] VITALS (14 sets, daily range): BP systolic 95–117; BP diastolic 47–65; PULSE 74–96; RESP 16–20; TEMP 36.8–37.3; O2SAT 97–99
[2019-05-27] MEDS: BENZOCAINE/MENTHOL 1 LOZENGE MUCOUS MEM (02:01)
[2019-05-27 06:13] LABS: Hematocrit 19.1 % (40-54); Hemoglobin 6.5 g/dL (13.0-16.5); Mean Corpuscular Hgb 31.4 pg (27.0-32.0); Mean Corpuscular Volume 92.3 fL (80-94); Mean Platelet Vol. 10.1 fl (6.2-12.0); Neutrophil % 63.6 % (47-70); Platelet Count 142 K/mm3 (150-450); RBC Distribution Width CV 14.3 % (11.6-14.6); RBC Distribution Width SD 47.7 fl (35.1-43.9); Red Blood Count 2.07 M/mm3 (4.6-6.2); White Blood Count 9.9 K/mm3 (4.4-11.0)
[2019-05-27 06:14] LABS: Absolute Lymphocyte Count 2.08 X10^3/uL (0.83-4.51); Absolute Neutrophil Count 6.3 X10^3/uL (2.0-7.7); Basophil# 0.01 X10^3/uL; Basophil% 0.1 % (0-1); Eosinophil# 0.36 X10^3/uL; Eosinophils% 3.7 % (0-5); Lymphocyte # 2.08 X10^3/ul (4.0); Lymphocyte % 21.1 % (19-41); Monocyte# 0.68 X10^3/uL; Monocyte% 6.9 % (0-10); NRBC Flagged by Analyzer 0 % (0-5); Neutrophil # 6.27 X10^3/uL (2.7-7.7)
[2019-05-27 06:46] LABS: Anion Gap 6 (5-15); BUN 13 mg/dL (7-18); BUN/Creat Ratio 28.2 RATIO (10-20); Calcium,Total 6.7 mg/dL (8.5-10.1); Chloride 114 mmol/L (98-107); Creatinine, Serum 0.46 mg/dL (0.70-1.30); EST Glomerular Filtration Rate 206 mL/min (>60); Est Glom Filt Rate - Afr Amer 250 mL/min (>60); Estimated Creatinine Clearance 184.44 ml/min; Glucose 97 mg/dL (74-106); Potassium 3.6 mmol/L (3.5-5.1); Sodium Level 145 mmol/L (136-145)
[2019-05-27] MEDS: Sucralfate 1 GM Tablet PO ×4 (06:50→21:04)
--- NOTE | 2019-05-27 06:53 | PN.SURG_ITS ---
Patient Problems: Active and Suspected Problems Acute renal failure (Acute) Inflammatory bowel disease (Acute) Hyponatremia (Acute) Bacteria in urine (Acute) Abdominal pain (Acute) Tobacco abuse (Acute) Subjective: The patient has not had any bowel movements since his immediate postoperative care in the PACU. He denies pain. His vital signs have been stable. After the third unit transfusion his hemoglobin was 7.4 and this morning is 6.5 however based upon the amount of blood loss that he incurred I suspect the 7.4 was prior to normal hemodilution. - Physical Exam Vitals/I&O's: Vital Signs Temp Pulse Resp BP Pulse Ox 98.5 F 87 19 H 110/57 L 97 05/27/19 03:30 05/27/19 03:30 05/27/19 03:30 05/27/19 03:30 05/27/19 03:30 Oxygen Flow Rate (L/min) 2 Oxygen Delivery Method Room Air Weight: 146 lb 6.191 oz Body Mass Index (BMI) 20.9 Intake and Output for Last 24 Hours 05/25/19 05/26/19 05/27/19 23:59 23:59 23:59 Intake Total 3182.58 / 3302.58 4785.07 / 4785.07 982 / 982 Output Total 3120 / 3945 2560 / 2560 850 / 850 Balance 62.58 / -642.42 2225.07 / 2225.07 132 / 132 Lungs: Clear to auscultation, Normal air movement Abdomen: Soft, Non Tender, - - Less distended, nontender, minimal wound drainage Microbiology Past 72 Hours 05/24/19 10:44 Incision/Surgical Site Gram Stain - Final 05/24/19 10:44 Incision/Surgical Site Wound Culture - Preliminary Escherichia coli Alpha Hemolytic Streptococcus 05/24/19 10:44 Incision/Surgical Site Anaerobic Culture - Preliminary Checking for anaerobes, further studies to follow. 05/20/19 12:00 Blood Culture (Wb) - Anticubital Left Blood Culture - Final No growth in 5 days. 05/20/19 12:00 Blood Culture (Wb) - Anticubital Left Blood Culture - Final No growth in 5 days. Laboratory Results 05/24/19 03:22: Crossmatch See Detail 05/24/19 08:20: Crossmatch See Detail 05/26/19 06:18: Differential Comment SCANNED, Atypical Lymphocytes RARE, Platelet Estimate ADEQUATE 05/26/19 06:18: Sodium 144, Potassium 3.6, Chloride 108 H, Carbon Dioxide 28.0, Anion Gap 8, BUN 19 H, Creatinine 0.50 L, Estim Creat Clear Calc 169.69, Est GFR (MDRD) Af Amer 229, Est GFR (MDRD) Non-Af 189, BUN/Creatinine Ratio 38.2 H, Glucose 97, Calcium 7.6 L 05/26/19 11:24: Hgb 5.9 L*, Hct 18.6 L 05/26/19 15:45: WBC 18.9 H, RBC 2.10 L, Hgb 6.4 L, Hct 19.8 L, MCV 94.3 H, MCH 30.5, MCHC 32.3, RDW Std Deviation 46.7 H, RDW Coeff of Manuela 13.6, Plt Count 128 L, MPV 10.0, Immature Gran % (Auto) 4.700 H, Neut % (Auto) 83.1 H, Lymph % (Auto) 6.4 L, Carver % (Auto) 5.4, Eos % (Auto) 0.3, Baso % (Auto) 0.1, Absolute Neuts (auto) 15.7 H, Absolute Lymphs (auto) 1.21, Nucleated RBC % 0 05/26/19 15:45: Sodium 149 H, Potassium 4.0, Chloride 122 H, Carbon Dioxide 22.0, Anion Gap 5, BUN 21 H, Creatinine 0.46 L, Estim Creat Clear Calc 184.44, Est GFR (MDRD) Af Amer 249, Est GFR (MDRD) Non-Af 205, BUN/Creatinine Ratio 45.4 H, Glucose 135 H, Calcium 6.1 L* 05/26/19 22:33: Hgb 7.4 L, Hct 22.5 L 05/26/19 22:33: Magnesium 1.6 05/26/19 22:33: Phosphorus 2.2 L 05/27/19 05:53: WBC 9.9, RBC 2.07 L, Hgb 6.5 L, Hct 19.1 L, MCV 92.3, MCH 31.4, MCHC 34.0 D, RDW Std Deviation 47.7 H, RDW Coeff of Manuela 14.3, Plt Count 142 L, MPV 10.1, Immature Gran % (Auto) 4.600 H, Neut % (Auto) 63.6, Lymph % (Auto) 21.1, Carver % (Auto) 6.9, Eos % (Auto) 3.7, Baso % (Auto) 0.1, Absolute Neuts (auto) 6.3, Absolute Lymphs (auto) 2.08, Nucleated RBC % 0 05/27/19 05:53: Sodium 145, Potassium 3.6, Chloride 114 H, Carbon Dioxide 25.0, Anion Gap 6, BUN 13, Creatinine 0.46 L, Estim Creat Clear Calc 184.44, Est GFR (MDRD) Af Amer 250, Est GFR (MDRD) Non-Af 206, BUN/Creatinine Ratio 28.2 H, Glucose 97, Calcium 6.7 L 05/27/19 05:53: Miscellaneous Test Pending Current Medications Piperacillin Sod/Tazobactam (Sod 3.375 gm/ Sodium Chloride) 50 mls @ 12.5 ml s/hr IV Q8 [facility] Last Admin: 05/27/19 05:03 Dose: 12.5 mls/hr Documented by: Sodium Chloride () 250 mls @ 15 mls/hr IV .[id number] PRN PRN Reason: Saline Flush Last Infusion: 05/26/19 23:28 Dose: 0 mls/hr Documented by: Potassium Chloride/Sodium Chloride () 1,000 mls @ 100 mls/hr IV .Q10H [facility] Last Admin: 05/27/19 05:10 Dose: 100 mls/hr Documented by: Pantoprazole Sodium 80 mg/ (Sodium Chloride) 100 mls @ 10 mls/hr CONT INF Q10H [facility] Last Admin: 05/27/19 02:54 Dose: 10 mls/hr Documented by: Melatonin (Melatonin) 3 mg PO QHS PRN PRN PRN Reason: INSOMNIA Morphine Sulfate () 2 - 4 mg IV Q2H PRN PRN PRN Reason: Pain Score 4-10/10 Last Admin: 05/26/19 21:07 Dose: 2 mg Documented by: Morphine Sulfate () 2 - 4 mg IV Q2H PRN PRN PRN Reason: Pain Score 4-10/10 Last Admin: 05/26/19 01:43 Dose: 4 mg Documented by: Nicotine (Nicoderm Cq (Pbkc)) 14 mg TRANSDERM. DAILY [facility] Last Admin: 05/26/19 08:53 Dose: 14 mg Documented by: Ondansetron HCl (Zofran) 4 mg IV Q6H PRN PRN PRN Reason: NAUSEA/VOMITING Last Admin: 05/26/19 10:59 Dose: 4 mg Documented by: Phenol/Menthol (Chloraseptic (Bkc)) 2 spray MUCOUS MEM Q2H PRN PRN PRN Reason: SORE THROAT Last Admin: 05/20/19 23:39 Dose: 2 sprays Documented by: Sodium Chloride () 10 - 40 ml IV UD PRN PRN Reason: SALINE FLUSH Last Admin: 05/26/19 21:08 Dose: 20 ml Documented by: Sucralfate (Carafate) 1 gm PO 1HR_ACHS [facility] Last Admin: 05/27/19 06:50 Dose: 1 gm Documented by: Throat Lozenges (Cepacol Sore Throat Lozenge) 1 lozenge MUCOUS MEM Q2H PRN PRN PRN Reason: SORE THROAT Last Admin: 05/27/19 02:01 Dose: 1 lozenge Documented by: Medical Necessity - Tobacco Use Smoking Status: Current every day smoker Tobacco Use: Cigarettes Assessment/Plan All Active Problems Acute renal failure (Acute) Inflammatory bowel disease (Acute) Hyponatremia (Acute) Bacteria in urine (Acute) Abdominal pain (Acute) Tobacco abuse (Acute) Leukocytosis has normalized. The patient is receiving 1 more unit of blood. I do not have current evidence that he has ongoing bleeding. At this point because of shortage of supplies I do not plan a repeat EGD unless symptoms warrant. I will initiate clear liquids. I will continue IV antibiotics today. I am hopeful for potential discharge tomorrow. In addition I am checking for H. pylori Silvestre Urias M.D., F.A.C.S.
[2019-05-27] MEDS: 0.9% Saline Lock 10 ML Syringe IV ×2 (11:05→15:54)
--- NOTE | 2019-05-27 11:27 | PN_ITS ---
Patient Problems: Active and Suspected Problems Acute renal failure (Acute) Inflammatory bowel disease (Acute) Hyponatremia (Acute) Bacteria in urine (Acute) Abdominal pain (Acute) Tobacco abuse (Acute) Subjective: Patient seen and examined. She is he feels better today. He has not felt lightheaded or dizzy. He denies any chest pain abdominal pain, nausea vomiting or diarrhea. Review of systems otherwise negative. He has remained hemodynamically stable. Hemoglobin came up to 7.4 after 2 units of blood but subsequently is down to 6.5 this morning. WBC is 9.9.Calcium is 6.7. Vitals/I&O's: Vital Signs Temp Pulse Resp BP Pulse Ox 98.6 F 84 20 H 107/59 L 97 05/27/19 10:35 05/27/19 10:35 05/27/19 10:35 05/27/19 10:35 05/27/19 10:35 Oxygen Flow Rate (L/min) 2 Oxygen Delivery Method Room Air Weight: 146 lb 6.191 oz Body Mass Index (BMI) 20.9 Intake and Output for Last 24 Hours 05/25/19 05/26/19 05/27/19 23:59 23:59 23:59 Intake Total 3182.58 / 3302.58 4785.07 / 4785.07 1752.50 / 1752.50 Output Total 3120 / 3945 2560 / 2560 850 / 850 Balance 62.58 / -642.42 2225.07 / 2225.07 902.50 / 902.50 General: Alert, Oriented x3, Cooperative, No apparent distress HEENT: Atraumatic, PERRLA, EOMI, Normocephalic Oral: Moist Mucosa Neck: Supple, No JVD, Negative Carotid Bruits Lungs: Clear to auscultation, Normal air movement, No rhonchi, No wheeze Cardiovascular: Regular rate, Regular Rhythm, Normal S1, Normal S2, No murmurs Abdomen: Bowel Sounds present, Minimal generalised tenderness, no guarding or rebound tenderness. NG tube removed. Intact dressing over lower abdomen Extremities: No clubbing, No cyanosis, No edema, Capillary Refill Less than 3 Seconds Skin: No rashes, No breakdown Musculoskeletal: No Tenderness to Palpation of Joints or Extremities Lymphatic: No Cervical, Supraclavicular, or Inguinal Adenopathy Neurological: Cranial nerves II-XII grossly intact, Neuro grossly intact, Motor Exam 5/5 strength throughout Psych/Mental Status: Normal Affect, Appropriate, Alert and oriented to time, place, person, mood and affect Microbiology Past 72 Hours 05/24/19 10:44 Incision/Surgical Site Gram Stain - Final 05/24/19 10:44 Incision/Surgical Site Wound Culture - Preliminary Escherichia coli Enterococcus avium 05/24/19 10:44 Incision/Surgical Site Anaerobic Culture - Preliminary Checking for anaerobes, further studies to follow. 05/20/19 12:00 Blood Culture (Wb) - Anticubital Left Blood Culture - Final No growth in 5 days. 05/20/19 12:00 Blood Culture (Wb) - Anticubital Left Blood Culture - Final No growth in 5 days. Laboratory Results 05/24/19 08:20: Crossmatch See Detail 05/24/19 08:20: Crossmatch See Detail 05/26/19 11:24: Hgb 5.9 L*, Hct 18.6 L 05/26/19 15:45: WBC 18.9 H, RBC 2.10 L, Hgb 6.4 L, Hct 19.8 L, MCV 94.3 H, MCH 30.5, MCHC 32.3, RDW Std Deviation 46.7 H, RDW Coeff of Manuela 13.6, Plt Count 128 L, MPV 10.0, Immature Gran % (Auto) 4.700 H, Neut % (Auto) 83.1 H, Lymph % (Auto) 6.4 L, [place] % (Auto) 5.4, Eos % (Auto) 0.3, Baso % (Auto) 0.1, Absolute Neuts (auto) 15.7 H, Absolute Lymphs (auto) 1.21, Nucleated RBC % 0 05/26/19 15:45: Sodium 149 H, Potassium 4.0, Chloride 122 H, Carbon Dioxide 22.0, Anion Gap 5, BUN 21 H, Creatinine 0.46 L, Estim Creat Clear Calc 184.44, Est GFR (MDRD) Af Amer 249, Est GFR (MDRD) Non-Af 205, BUN/Creatinine Ratio 45.4 H, Glucose 135 H, Calcium 6.1 L* 05/26/19 22:33: Hgb 7.4 L, Hct 22.5 L 05/26/19 22:33: Magnesium 1.6 05/26/19 22:33: Phosphorus 2.2 L 05/27/19 05:53: WBC 9.9, RBC 2.07 L, Hgb 6.5 L, Hct 19.1 L, MCV 92.3, MCH 31.4, MCHC 34.0 D, RDW Std Deviation 47.7 H, RDW Coeff of Manuela 14.3, Plt Count 142 L, MPV 10.1, Immature Gran % (Auto) 4.600 H, Neut % (Auto) 63.6, Lymph % (Auto) 21.1, [place] % (Auto) 6.9, Eos % (Auto) 3.7, Baso % (Auto) 0.1, Absolute Neuts (auto) 6.3, Absolute Lymphs (auto) 2.08, Nucleated RBC % 0 05/27/19 05:53: Sodium 145, Potassium 3.6, Chloride 114 H, Carbon Dioxide 25.0, Anion Gap 6, BUN 13, Creatinine 0.46 L, Estim Creat Clear Calc 184.44, Est GFR (MDRD) Af Amer 250, Est GFR (MDRD) Non-Af 206, BUN/Creatinine Ratio 28.2 H, Glucose 97, Calcium 6.7 L 05/27/19 05:53: Miscellaneous Test Pending Current Medications Acetaminophen (Tylenol) 650 mg PO Q6H PRN PRN PRN Reason: Pain Score 1-10/10 Piperacillin Sod/Tazobactam (Sod 3.375 gm/ Sodium Chloride) 50 mls @ 12.5 mls/hr IV Q8 [facility] Last Admin: 05/27/19 05:03 Dose: 12.5 mls/hr Documented by: Sodium Chloride () 250 mls @ 15 mls/hr IV .[id number] PRN PRN Reason: Saline Flush Last Infusion: 05/26/19 23:28 Dose: 0 mls/hr Documented by: Potassium Chloride/Sodium Chloride () 1,000 mls @ 30 mls/hr IV .[id number] [facility] Last Infusion: 05/27/19 11:06 Dose: 30 mls/hr Documented by: Pantoprazole Sodium 80 mg/ (Sodium Chloride) 100 mls @ 10 mls/hr CONT INF Q10H [facility] Last Infusion: 05/27/19 11:05 Dose: 10 mls/hr Documented by: Melatonin (Melatonin) 3 mg PO QHS PRN PRN PRN Reason: INSOMNIA Morphine Sulfate () 2 - 4 mg IV Q2H PRN PRN PRN Reason: Pain Score 4-10/10 Last Admin: 05/26/19 21:07 Dose: 2 mg Documented by: Morphine Sulfate () 2 - 4 mg IV Q2H PRN PRN PRN Reason: Pain Score 4-10/10 Last Admin: 05/26/19 01:43 Dose: 4 mg Documented by: Nicotine (Nicoderm Cq (Pbkc)) 14 mg TRANSDERM. DAILY [facility] Last Admin: 05/27/19 10:26 Dose: 14 mg Documented by: Ondansetron HCl (Zofran) 4 mg IV Q6H PRN PRN PRN Reason: NAUSEA/VOMITING Last Admin: 05/26/19 10:59 Dose: 4 mg Documented by: Phenol/Menthol (Chloraseptic (Bkc)) 2 spray MUCOUS MEM Q2H PRN PRN PRN Reason: SORE THROAT Last Admin: 05/20/19 23:39 Dose: 2 sprays Documented by: Sodium Chloride () 10 - 40 ml IV UD PRN PRN Reason: SALINE FLUSH Last Admin: 05/27/19 11:05 Dose: 30 ml Documented by: Sucralfate (Carafate) 1 gm PO 1HR_ACHS [facility] Last Admin: 05/27/19 11:04 Dose: 1 gm Documented by: Throat Lozenges (Cepacol Sore Throat Lozenge) 1 lozenge MUCOUS MEM Q2H PRN PRN PRN Reason: SORE THROAT Last Admin: 05/27/19 02:01 Dose: 1 lozenge Documented by: STROKE Vital Signs/Narrative: Vital Signs Temp Pulse Resp BP Pulse Ox 05/27/19 10:35 98.6 F 84 20 H 107/59 L 97 05/27/19 09:35 99.0 F 83 20 H 117/60 99 05/27/19 08:35 99.1 F 76 20 H 112/56 L 97 05/27/19 08:20 99.1 F 76 20 H 102/61 97 05/27/19 08:12 99.1 F 80 20 H 110/65 97 Medical Necessity - Tobacco Use Smoking Status: Current every day smoker Tobacco Use: Cigarettes Assessment/Plan All Active Problems Acute renal failure (Acute) Inflammatory bowel disease (Acute) Hyponatremia (Acute) Bacteria in urine (Acute) Abdominal pain (Acute) Tobacco abuse (Acute) 1. Perforated appendicitis and small bowel obstruction * today is POD 3 * abdominal pain is much better today * on IV zosyn; today is day 7. * Hemoglobin is down to 6.5 today * general surgery on board * on IV pain meds * started on sips and chips today, to advance as tolerated, per general surgery * wound cultured E coli and alpha hemolytic streptococcus * 2. UGI bleed due to bleeding peptic ulcer * EGD showed gastric erosions with stigmata of chronic bleeding and blood in the duodenal bulb and in the second portion of the duodenum as well as 2 spurting duodenal ulcers with a visible vessel. Epinephrine were injected and clips were placed and there was also treated with argon beam coagulation. A third also not bleeding at that time was treated with epinephrine injection. * Patient now on IV pantoprazole continuous infusion. * is s/p 2 units of PREBCs; Hb today was 6.5, so patient will be transfused another 2 units of PRBCs * * 3. Acute anemia due to upper GI bleed: As under 2. 4. Hypocalcemia nad hypophosphatemia: Ca is 6.7 toay, and phosphorous was 2.2. Will replace per protocol and monitor 5. Hypokalemia: K is 3.6 today. 6. Sepsis due to gastroenteritis and perforated appendix * on IV zosyn. * 7. UTI:urine culture and blood culture are negative. Currently on IV Zosyn. 8. PTSD: On clonazepam and duloxetine as well as amitriptyline. GI prophylaxis; now on IV pantoprazole infusion DVT prophylaxis: SCDs; lovenox dc'd Inpatient E&M: [id number] [facility] L3
[2019-05-27] MEDS: Na Biphos/Potassium Phosphate PACKET 1 PACKET PO ×2 (14:16→22:29)
[2019-05-27] MEDS: Morphine 2 MG/ML Syringe IV (14:43)
[2019-05-27] MEDS: Furosemide 20 MG/2 ML VIAL IV (15:53)
[2019-05-27 17:32] LABS: Hematocrit 27.4 % (40-54); Hemoglobin 9.3 g/dL (13.0-16.5)
[2019-05-27] MEDS: Acetaminophen 325 MG Tablet 650 MG PO (21:04)
[2019-05-28] VITALS (12 sets, daily range): BP systolic 95–126; BP diastolic 49–80; PULSE 71–98; RESP 16; TEMP 36.4–37.1; O2SAT 92–98
--- NOTE | 2019-05-28 | EGD_PTH ---
PATIENT: DEX CLAYTON LOC: [facility] U#:[id number] AGE/SX: 48/M ROOM: [facility] RE05/20/[address]: Dr. Josefina Davila MD : 1970 BED: 1 DIS: 05/28/2019 SPEC #: [id number] RECD: 05/28/19 08:40 STATUS: MARYAN REJourdan #: [id number] MC: 05/28/19 00:[address]: Silvestre Urias DEPT: SURGICAL PATHOLOGY RECD BY: Steven Badillo ENTERED: 05/28/19 10:17 SP TYPE: EGD BIOPSY OTHR DR: MD Dr. Henry Wooten MD No Primary Care Phys Tissues: A - Duodenum, NOS B - Gastric mucous membrane C - Esophageal mucous membrane Procedures: Special Stain Group I Surgery Specimen Level IV GMS Stain (control) HEADER OPERATION: EGD PRE-OP DIAGNOSIS: GI bleed TISSUE SUBMITTED: A - Duodenal biopsy, B - Antral biopsy for histo and H. pylori, C - Distal esophagus biopsy MICROSCOPIC DIAGNOSIS A. Duodenum, biopsy: Suggestive of Larry's gland hyperplasia. B. Gastric antrum, biopsy: Minimal chronic inflammation. See comment. C. Distal esophagus, biopsy: Fragments of benign squamous mucosa with focal acute inflammation. Negative for fungal organisms. Rare fragment of benign superficial gastric mucosa. See comment. AM:chencho 05/29/19 COMMENT B. The results of immunohistochemistry for Helicobacter pylori will be reported separately ([id number]). C. GMS stain with matched control was used in the evaluation of this case. MICROSCOPIC DESCRIPTION Slides are reviewed. GROSS DESCRIPTION A - Received in fixative is one container labeled with the patient's name and designated duodenal biopsy. The specimen consists of multiple irregular fragments of light brady soft tissue that in aggregate measure 0.6 x 0.2 x 0.1 cm. The specimen is totally submitted in one cassette. B - Received in fixative is one container labeled with the patient's name and designated antral biopsy. The specimen consists of one irregular fragment of light brady soft tissue that measures 0.5 x 0.2 x 0.1 cm. The specimen is totally submitted in one cassette. C - Received in fixative is one container labeled with the patient's name and designated distal esophagus biopsy. The specimen consists of one irregular fragment of light brady soft tissue that measures 0.5 x 0.3 x <0.1 cm. The specimen is totally submitted in one cassette. / AM:chencho 05/28/19 TC:2 CPT: 78654 x3, 99553
--- NOTE | 2019-05-28 | IMM_PTH ---
PATIENT: DEX CLAYTON LOC: [facility] U#:[id number] AGE/SX: 48/M ROOM: [facility] RE05/20/[address]: Dr. Josefina Davila MD : 1970 BED: 1 DIS: 05/28/2019 SPEC #: [id number] RECD: 05/28/19 12:22 STATUS: MARYAN REJourdan #: [id number] MC: 05/28/19 00:[address]: Silvestre Urias DEPT: IMMUNOHISTOCHEMISTRY RECD BY: Sherry Lawrence ENTERED: 05/28/19 12:23 SP TYPE: IMMUNO OTHR DR: MD Dr. Henry Wooten MD No Primary Care Phys Tissues: B - Stomach, NOS Procedures: H Pylori (initial) PHYSICIAN & INSTITUTION [place] [address] SPECIMEN INFORMATION: Tissue Source: B - Antral biopsy Clinical Info: GI bleed Specimen Number: [id number] CPT code: 97066 METHODOLOGY: Deparaffinized sections of prefer/formalin-fixed tissue or PAP/DQ stained slides are incubated with monoclonal/polyclonal antibodies/oligonucleotide probes. Localization is made via biotin free immunoperoxidase method. Appropriate controls are performed and reacted as expected. Results on target cell population are indicated in the following table: RESULTS: ANTIBODY / CLONE RESULT Block B H Pylori (polyclonal) negative These tests were developed and their performance characteristics determined by [facility]. They may not have been cleared or approved by the U.S. Food and Drug Administration. The FDA has determined that such clearance or approval is not necessary. INTERPRETATION: B. Antral biopsy: Negative for Helicobacter pylori organisms. AM:chencho 05/29/19
--- NOTE | 2019-05-28 04:26 | NURSING ---
Pt. had BM at this time . Pt. stated it was soft and first true BM since full liquid diet. This nurse observed dark red blood in toilet after pt finished BM. Pt. stated he felt better after BM, was having pressure in his abdomen. Pt requesting Tylenol for pain 10/11 at this time.Abdominal dressing C/D/I.
[2019-05-28] MEDS: Acetaminophen 325 MG Tablet 650 MG PO ×2 (04:33→15:22)
[2019-05-28 05:56] LABS: Absolute Lymphocyte Count 1.69 X10^3/uL (0.83-4.51); Absolute Neutrophil Count 5.1 X10^3/uL (2.0-7.7); Basophil# 0.01 X10^3/uL; Basophil% 0.1 % (0-1); Eosinophil# 0.29 X10^3/uL; Eosinophils% 3.6 % (0-5); Hematocrit 22.5 % (40-54); Hemoglobin 7.4 g/dL (13.0-16.5); Lymphocyte # 1.69 X10^3/ul (4.0); Lymphocyte % 21.1 % (19-41); Mean Corp Hgb Conc 32.9 g/dL (32-36); Mean Corpuscular Hgb 29.8 pg (27.0-32.0); Mean Corpuscular Volume 90.7 fL (80-94); Mean Platelet Vol. 9.8 fl (6.2-12.0); Monocyte# 0.64 X10^3/uL; NRBC Flagged by Analyzer 0 % (0-5); Neutrophil # 5.05 X10^3/uL (2.7-7.7); Platelet Count 176 K/mm3 (150-450); RBC Distribution Width CV 14.3 % (11.6-14.6); RBC Distribution Width SD 46.3 fl (35.1-43.9); Red Blood Count 2.48 M/mm3 (4.6-6.2)
--- NOTE | 2019-05-28 06:54 | PN.SURG_ITS ---
Patient Problems: Active and Suspected Problems Acute renal failure (Acute) Inflammatory bowel disease (Acute) Hyponatremia (Acute) Bacteria in urine (Acute) Abdominal pain (Acute) Tobacco abuse (Acute) Subjective: Approximately 2 hours ago the patient had another bowel movement. He felt there was a component of stool but also dark and red blood. His hemoglobin went from 6.3 to after his fourth unit of blood to 9.3 and then this morning it is 7.4. The patient had 3 ulcers at the time of his upper endoscopy placing him at high risk for rebleed. I recommend a repeat upper endoscopy urgently to assess for possible recurrent bleeding - Physical Exam Vitals/I&O's: Vital Signs Temp Pulse Resp BP Pulse Ox 97.6 F L 77 16 113/71 97 05/28/19 02:40 05/28/19 03:14 05/28/19 02:40 05/28/19 02:40 05/28/19 02:40 Oxygen Flow Rate (L/min) 2 Oxygen Delivery Method Room Air Weight: 146 lb 6.191 oz Body Mass Index (BMI) 20.9 Intake and Output for Last 24 Hours 05/26/19 05/27/19 05/28/19 23:59 23:59 23:59 Intake Total 4785.07 / 4785.07 2746.00 / 2746.00 234.33 / 234.33 Output Total 2560 / 2560 1600 / 1600 250 / 250 Balance 2225.07 / 2225.07 1146.00 / 1146.00 -15.67 / -15.67 Abdomen: Soft, Non Tender - Abdomen is much softer nontender, the abdominal incision is healing very well with no erythema. There is a light serous drainage. Microbiology Past 72 Hours 05/24/19 10:44 Incision/Surgical Site Gram Stain - Final 05/24/19 10:44 Incision/Surgical Site Wound Culture - Preliminary Escherichia coli Enterococcus avium 05/24/19 10:44 Incision/Surgical Site Anaerobic Culture - Preliminary Checking for anaerobes, further studies to follow. 05/20/19 12:00 Blood Culture (Wb) - Anticubital Left Blood Culture - Final No growth in 5 days. 05/20/19 12:00 Blood Culture (Wb) - Anticubital Left Blood Culture - Final No growth in 5 days. Laboratory Results 05/24/19 08:20: Crossmatch See Detail 05/24/19 08:20: Crossmatch See Detail 05/27/19 17:10: Hgb 9.3 L, Hct 27.4 L 05/28/19 05:24: Miscellaneous Test Pending 05/28/19 05:24: WBC 8.0, RBC 2.48 L, Hgb 7.4 L, Hct 22.5 L, MCV 90.7, MCH 29.8, MCHC 32.9, RDW Std Deviation 46.3 H, RDW Coeff of Manuela 14.3, Plt Count 176, MPV 9.8, Immature Gran % (Auto) 4.200 H, Neut % (Auto) 63.0, Lymph % (Auto) 21.1, [place] % (Auto) 8.0, Eos % (Auto) 3.6, Baso % (Auto) 0.1, Absolute Neuts (auto) 5.1, Absolute Lymphs (auto) 1.69, Nucleated RBC % 0 Current Medications Acetaminophen (Tylenol) 650 mg PO Q6H PRN PRN PRN Reason: Pain Score 1-10/10 Last Admin: 05/28/19 04:33 Dose: 650 mg Documented by: Piperacillin Sod/Tazobactam (Sod 3.375 gm/ Sodium Chloride) 50 mls @ 12.5 mls/hr IV Q8 [facility] Last Admin: 05/28/19 05:25 Dose: 12.5 mls/hr Documented by: Sodium Chloride () 250 mls @ 15 mls/hr IV .[id number] PRN PRN Reason: Saline Flush Last Infusion: 05/28/19 01:10 Dose: 15 mls/hr Documented by: Potassium Chloride/Sodium Chloride () 1,000 mls @ 30 mls/hr IV .[id number] [facility] Last Admin: 05/27/19 14:21 Dose: Not Given Documented by: Pantoprazole Sodium 80 mg/ (Sodium Chloride) 100 mls @ 10 mls/hr CONT INF Q10H [facility] Last Admin: 05/28/19 00:12 Dose: 10 mls/hr Documented by: Melatonin (Melatonin) 3 mg PO QHS PRN PRN PRN Reason: INSOMNIA Morphine Sulfate () 2 - 4 mg IV Q2H PRN PRN PRN Reason: Pain Score 4-10/10 Last Admin: 05/27/19 14:43 Dose: 4 mg Documented by: Morphine Sulfate () 2 - 4 mg IV Q2H PRN PRN PRN Reason: Pain Score 4-10/10 Last Admin: 05/26/19 01:43 Dose: 4 mg Documented by: Nicotine (Nicoderm Cq (Pbkc)) 14 mg TRANSDERM. DAILY [facility] Last Admin: 05/27/19 10:26 Dose: 14 mg Documented by: Ondansetron HCl (Zofran) 4 mg IV Q6H PRN PRN PRN Reason: NAUSEA/VOMITING Last Admin: 05/26/19 10:59 Dose: 4 mg Documented by: Phenol/Menthol (Chloraseptic (Bkc)) 2 spray MUCOUS MEM Q2H PRN PRN PRN Reason: SORE THROAT Last Admin: 05/20/19 23:39 Dose: 2 sprays Documented by: Potassium Phos/Sodium Phos (Neutra-Phos Packet) 1 packet PO BID [facility] Stop: 05/28/19 22:01 Last Admin: 05/27/19 22:29 Dose: 1 packet Documented by: Sodium Chloride () 10 - 40 ml IV UD PRN PRN Reason: SALINE FLUSH Last Admin: 05/27/19 15:54 Dose: 10 ml Documented by: Sucralfate (Carafate) 1 gm PO 1HR_ACHS [facility] Last Admin: 05/28/19 06:43 Dose: Not Given Documented by: Throat Lozenges (Cepacol Sore Throat Lozenge) 1 lozenge MUCOUS MEM Q2H PRN PRN PRN Reason: SORE THROAT Last Admin: 05/27/19 02:01 Dose: 1 lozenge Documented by: Medical Necessity - Tobacco Use Smoking Status: Current every day smoker Tobacco Use: Cigarettes Assessment/Plan All Active Problems Acute renal failure (Acute) Inflammatory bowel disease (Acute) Hyponatremia (Acute) Bacteria in urine (Acute) Abdominal pain (Acute) Tobacco abuse (Acute) Clinically the patient appears to be improved however the drop in hemoglobin which may or may not be real but certainly the evidence of the dark and bloody stool is of concern. I am recommending a repeat urgent endoscopy as I do not want him to become significantly anemic and the degree of his bleeding prev iously was very impressive
[2019-05-28] MEDS: Lactated Ringers 1,000 ML 100 ML IV (07:34)
--- NOTE | 2019-05-28 07:52 | PCM.PN.BLA ---
Progress Note Findings on upper endoscopy include a hiatal hernia with some reflux esophagitis. The previously bleeding duodenal ulcers are very nicely controlled with no evidence of current hemorrhage. There is no evidence of upper GI bleeding at this time. I am very pleased with the results. I will resume patient diet. Recheck hemoglobin later today. If stable would concur with discharge. Silvestre Urias M.D., F.A.C.S. STROKE Vital Signs/Narrative: Vital Signs Pulse 05/28/19 07:02 76
--- NOTE | 2019-05-28 08:01 | DCINST_ITS ---
Discharge Diet: - - Regular diet avoiding alcohol and highly spicy foods Discharge Activity: May Not Drive - No driving for 5 days May shower in (days): 0 - May shower today Additional Activity Instructions:: You may go up and down stairs. You may walk. You may shower daily. Pat the incision dry and cover with dry gauze dressing. Change the dressings daily and as needed for any saturation. Call your doctor if your incision/area has: Continuous Slow Oozing, Sudden Increased Bleeding, Increased Pain/ Swelling, Increased Redness, Foul Smelling Discharge Call your doctor if you observe: Fever of 101 or Higher Suture Line Care: Avoid Pulling/Pushing, Avoid Pinching/Bending Additional Instructions: [id number] pain medicine like Tylenol or acetaminophen is safest. I do no t propose that we will require narcotic pain pills. I strongly advise not utilizing NSAIDs for pain relief which would include ibuprofen or Motrin or Advil or Aleve Antibiotics will not be required at the time of discharge I do recommend utilizing a proton pump inhibitor like omeprazole 40 mg twice daily for at least 1 week and then they diminished to once daily Allergies/Adverse Reactions: Allergies No Known Allergies Allergy (Verified 05/20/19 07:50) Medications to take at Discharge Amitriptyline HCl 75 mg PO QHS PRN 05/20/19 Clonazepam [Klonopin] 1 mg PO Q8H PRN 05/20/19 Duloxetine HCl 30 mg PO DAILY 05/20/19 Primary Care Physician: Care Physician,No Primary [Primary Care Provider] - Test Results: Test results from this visit will be discussed in further detail at your follow- up appointment, if applicable. Please Follow Up With: Silvestre Urias MD - [phone] When: Call to make an appointment to be seen in about 10 days.
--- NOTE | 2019-05-28 08:13 | OP.EGD_ITS ---
Patient Name: Phil Romero Procedure Date: 05/28/2019 7:00 AM Date of : 1970 Age: 48 Procedure: Upper GI endoscopy Indications: Melena Providers: Silvestre Urias MD Medicines: See the Anesthesia note for documentation of the administered medications Complications: No immediate complications. Procedure: Pre-Anesthesia Assessment: - Prior to the procedure, a History and Physical was performed, and patient medications and allergies were reviewed. The patient's tolerance of previous anesthesia was also reviewed. The risks and benefits of the procedure and the sedation options and risks were discussed with the patient. All questions were answered, and informed consent was obtained. Prior Anticoagulants: The patient has taken no previous anticoagulant or antiplatelet agents. ASA Grade Assessment: III - A patient with severe systemic disease. After reviewing the risks and benefits, the patient was deemed in satisfactory condition to undergo the procedure. After obtaining informed consent, the endoscope was passed under direct vision. Throughout the procedure, the patient's blood pressure, pulse, and oxygen saturations were monitored continuously. The gastroscope was introduced through the mouth, and advanced to the second part of duodenum. The upper GI endoscopy was accomplished without difficulty. The patient tolerated the procedure well. Scope In: 7:42:42 AM Scope Out: 7:49:33 AM Total Procedure Duration Time 0 hours 6 minutes 51 seconds Findings: LA Grade A (one or more mucosal breaks less than 5 mm, not extending between tops of 2 mucosal folds) esophagitis with no bleeding was found 39 cm from the incisors. Biopsies were taken with a cold forceps for histology. A medium-sized hiatal hernia was present. The entire examined stomach was normal. Biopsies were taken with a cold forceps for histology. Three non-bleeding superficial duodenal ulcers with no stigmata of bleeding were found in the second portion of the duodenum. Biopsies were taken with a cold forceps for histology. Impression: - LA Grade A reflux esophagitis. Biopsied. - Medium-sized hiatal hernia. - Normal stomach. Biopsied. - Multiple non-bleeding duodenal ulcers with no stigmata of bleeding. Biopsied. Recommendation: - Return patient to [facility] care. - Resume regular diet. - Continue present medications. - Return to my office in 10 days. Procedure Code(s): --- Professional --- 04570, Esophagogastroduodenoscopy, flexible, transoral; with biopsy, single or multiple Diagnosis Code(s): --- Professional --- K21.0, Gastro-esophageal reflux disease with esophagitis K44.9, Diaphragmatic hernia without obstruction or gangrene K26.9, Duodenal ulcer, unspecified as acute or chronic, without hemorrhage or perforation K92.1, Melena (includes Hematochezia) CPT copyright 2017 [employer]. All rights reserved. The codes documented in this report are preliminary and upon tactical deception plans officer review may be revised to meet current compliance requirements. Silvestre Urias MD 05/28/2019 8:12:18 AM This report has been signed electronically. Number of Addenda: 0 Note Initiated On: 05/28/2019 7:00 AM
--- NOTE | 2019-05-28 08:13 | OP.CCLET_ITS ---
05/28/2019 No Primary Care Physician Re : Upper GI endoscopy procedure for Phil Romreo Dear Care Physician This procedure was performed on May. My impressions and recommendations are as follows: Impressions : - LA Grade A reflux esophagitis. Biopsied. - Medium-sized hiatal hernia. - Normal stomach. Biopsied. - Multiple non-bleeding duodenal ulcers with no stigmata of bleeding. Biopsied. Recommendations : - Return patient to [facility] for [facility] care. - Resume regular diet. - Continue present medications. - Return to my office in 10 days. My findings are described in the full procedure note, which is enclosed. If I can be of further assistance, please feel free to contact me at Doctor phone number(s): Work: . Sincerely, Silvestre Urias MD 05/28/2019 8:12:18 AM This report has been signed electronically.
[2019-05-28] MEDS: Sucralfate 1 GM Tablet PO ×2 (09:29→15:22)
[2019-05-28] MEDS: Na Biphos/Potassium Phosphate PACKET 1 PACKET PO (09:29)
[2019-05-28] MEDS: Pantoprazole Sodium 40 MG Tablet PO (09:29)
[2019-05-28 14:47] LABS: Hematocrit 23.3 % (40-54); Hemoglobin 7.8 g/dL (13.0-16.5)
--- NOTE | 2019-05-28 15:09 | DCINST_ITS ---
- Discharge Diagnoses Current Active Problems: Current Active and Chronic Problems Acute renal failure (Acute) Inflammatory bowel disease (Acute) Hyponatremia (Acute) Bacteria in urine (Acute) Abdominal pain (Acute) Tobacco abuse (Acute) Chronic anxiety (Chronic) COPD (chronic obstructive pulmonary disease) (Chronic) You will use the following diet at home:: Cardiac Your food should be the consistency of: Regular Your liquids should be the consistency of: Regular/Thin Discharge Activity: May Not Drive - No driving for 5 days May shower in (days): 0 - May shower today Weight Bearing Status: Weight bearing as tolerated Additional Activity Instructions:: You may go up and down stairs. You may walk. You may shower daily. Pat the incision dry and cover with dry gauze dressing. Change the dressings daily and as needed for any saturation. Call your doctor if your incision/area has: Continuous Slow Oozing, Sudden Increased Bleeding, Increased Pain/ Swelling, Increased Redness, Foul Smelling Discharge Call your doctor if you observe: Fever of 101 or Higher, Shortness of breath, Dizziness, Fainting spells, - - vomiting of blood, or blood in bowel movement Suture Line Care: Avoid Pulling/Pushing, Avoid Pinching/Bending Instructions: Appendectomy, What Is Appendicitis?, Surgery for Appendicitis, Bleeding Peptic Ulcer: Treatment, Peptic Ulcer Allergies/Adverse Reactions: Allergies No Known Allergies Allergy (Verified 05/20/19 07:50) Medications to take at Discharge Amitriptyline HCl 75 mg PO QHS PRN 05/20/19 Clonazepam [Klonopin] 1 mg PO Q8H PRN 05/20/19 Duloxetine HCl 30 mg PO DAILY 05/20/19 Ferrous Sulfate 325 mg PO TID #90 tab 05/28/19 Pantoprazole Sodium [Protonix] 40 mg PO BID #60 tab 05/28/19 Sucralfate [Carafate] 1 gm PO 1HR_ACHS #60 tab 05/28/19 The following prescriptions were given: Sucralfate [Carafate] 1 gm PO 1HR_ACHS #60 tab Transmission Status: Pending to [id number] Ferrous Sulfate 325 mg PO TID #90 tab Transmission Status: Pending to [id number] Pantoprazole Sodium [Protonix] 40 mg PO BID #60 tab Transmission Status: Pending to [id number] Primary Care Physician: Care Physician,No Primary [Primary Care Provider] - Test Results: Test results from this visit will be discussed in further detail at your follow- up appointment, if applicable. Please Follow Up With: Silvestre Urias MD - [phone] When: Call to make an appointment to be seen in about 10 days. Please Follow Up With: Darrell Stanton MD When: call office to make appointment to establish PCP relationship Proposed Discharge Date: 05/28/19
--- NOTE | 2019-05-28 15:13 | PCM.DC.SUM ---
Discharge Date and Diagnosis - Problem List Patient Problems: Active and Suspected Problems Acute renal failure (Acute) Inflammatory bowel disease (Acute) Hyponatremia (Acute) Bacteria in urine (Acute) Abdominal pain (Acute) Tobacco abuse (Acute) Date of Admission: 05/20/19 Date of Discharge: 05/28/19 - Primary Discharge Diagnosis Active and Suspected Problems Acute renal failure (Acute) Hyponatremia (Acute) Bacteria in urine (Acute) Abdominal pain (Acute) Tobacco abuse (Acute) acute appendicitis acute anemia due to acute blood loss - Secondary Discharge Diagnosis Chronic Problems Chronic anxiety (Chronic) COPD (chronic obstructive pulmonary disease) (Chronic) Hospital Course and Treatment Imaging Results: Diagnostic Data Abdomen/Pelvis CT 05/20/19 08:03 IMPRESSION: Findings in the right lower quadrant as described. The differential diagnosis should include appendicitis versus inflammatory bowel disease. A delayed CT scan to assess contrast migration is recommended. Electronically Signed: Chuy Galvan, at 10:02 EDT , Service support , Limited or Localized CT 05/20/19 11:00 IMPRESSION: There is evidence of a small bowel dilatation as well as thickening of the mucosa and the small bowel wall in several small bowel loops in the pelvis and right lower quadrant with increased markings in the surrounding peritoneal fat. The differential diagnosis to consider should include inflammatory bowel disease such as Crohn versus appendicitis. Electronically Signed: Chuy Galvan at 11:21 EDT , Service support , Small Bowel X-Ray 05/22/19 09:35 IMPRESSION: Small bowel obstruction with delayed visualization of a nondistended bladder right; at 5 hours following the placement of Gastrografin. Electronically Signed: Chuy Galvan at 15:38 EDT , Service support , Abdomen X-Ray 05/24/19 06:00 IMPRESSION: Small bowel obstruction/high-grade partial small bowel obstruction. The NG tube is high and should be advanced further into the stomach 5-10 cm. Recommend consideration for follow-up CT scan of the abdomen and pelvis. Electronically Signed: Shobha Teixeira MD at 8:38 EDT Tel , Service support , ADDENDUM: 05/24/19 0900 IMPRESSION: Small bowel obstruction/high-grade partial small bowel obstruction. The NG tube is high and should be advanced further into the stomach 5-10 cm. Recommend consideration for follow-up CT scan of the abdomen and pelvis. N.B. : The above information has been verbally conveyed by Shobha Teixeira MD to Silvestre [id number], MD, on 05/24/2019 08:53:17 (ET). Electronically Signed: Shobha Teixeira MD at 8:38 EDT Tel , Service support , KUB X-Ray 05/24/19 13:29 IMPRESSION: Post surgery today. Etiology of the subtle pneumoperitoneum. NG tube is been advanced and is in satisfactory position. Partially visualized distention of the bowel. Electronically Signed: Shobha Teixeira MD at 17:02 EDT Tel , Service support , general surgery- Dr Urias Operations: appendectomy Procedures: EGD Summary of Care Provided: The patient is a 48 year old M with a past medical history as outlined. He was admitted through the ED on 05/20/2019 with a complaint of nausea, vomiting and diarrhea with associated cramping abdominal pain. He had no assisted fever or chills but admitted to increased sweating. On admission, he was found to have elevated white cell count of 21.5 and also had ANTONIO with creatinine of 4.08. CT of the abdomen showed possible appendicitis versus small bowel obstruction but repeat CT after what showed no significant appendicitis and more evidence of inflammatory small bowel disease. He was admitted and managed for sepsis due to gastroenteritis and probable inflammatory bowel disease with appendicitis as a differential as well as acute renal failure. He was hydrated with IV fluids and started on IV Zosyn. General surgery was consulted. Subsequent abdominal x-ray showed dilated gas and fluid filled small loops of bowel with numerous air fluid levels at different heights seen with small bowel obstruction. Patient was kept n.p.o. and NG tube was inserted and placed to suction and was continued on IV fluids. Due to suspicion for inflammatory bowel disease, fecal calprotectin was ordered but this was still pending at time of discharge he was also started on IV Solu-Medrol per general surgery recommendations. Creatinine trended down from 4.08-0.6. Patient's abdominal pain however persisted so he was taken for emergent laparotomy findings of which were perforated acute appendicitis. Patient had appendectomy done. Stay was also further complicated by drop in hemoglobin down to 7.9. Patient then had an episode of dizziness upon standing up and on removal of NG tube, there was evidence of coffee-ground aspirate. Repeat hemoglobin done showed hemoglobin of 5.9 and he was taken for emergent EGD which showed gastric erosions with stigmata of chronic bleeding and blood in the duodenal bulb and in the second portion of the duodenum as well as 2 spurting duodenal cells with a visible vessel. He had epinephrine injected and clips were placed and the ulcers were also treated with argon beam coagulation. A third ulcer which was not bleeding at that time was treated with epinephrine injection. Patient remained stable. However hemoglobin was noted to drop again to 7.4 after he had received blood so he had a repeat EGD which was negative for any evidence of bleeding. Repeat hemoglobin check again was 7.8 and he was able to tolerate a regular diet. IV Solu-Medrol was discontinued patient remained stable and was discharged home on 05/28/2019 with a prescription for p.o. pantoprazole 40 mg twice daily, p.o. sulfate and was also started on iron supplementation. He is to follow-up with general surgery within 1 to 2 weeks. Patient currently has no PCP and [place] [facility] [place]CP [place]. Patient seen and examined prior to discharge. He felt well and said he felt much better than when he came in. He had no complaints. He denied any abdominal pain. Review systems otherwise negative. Labs and vitals reviewed. Home medication reviewed and reconciled. [] o/e: Vital Signs Height 5 ft 10 in Weight: 146 lb 6.191 oz Weight in Pounds 146.4 lbs Pulse Ox 98 Temperature 98.0 F Pulse Rate 78 Respiratory Rate 16 Blood Pressure [BP] 95/51 Blood Pressure 98/49 Blood Pressure Position [BP] Semi-Fowlers Blood Pressure Position Semi-Fowlers General: Alert, Oriented x3, Cooperative, No apparent distress HEENT: Atraumatic, PERRLA, EOMI, Normocephalic Oral: Moist Mucosa Neck: Supple, No JVD, Negative Carotid Bruits Lungs: Clear to auscultation, Normal air movement, No rhonchi, No wheeze Cardiovascular: Regular rate, Regular Rhythm, Normal S1, Normal S2, No murmurs Abdomen: Bowel Sounds present, no abdominal tenderness, no guarding or rebound tenderness. Minimal generalised tenderness, no guarding or rebound tenderness. Extremities: No clubbing, No cyanosis, No edema, Capillary Refill Less than 3 Seconds Skin: No rashes, No breakdown Musculoskeletal: No Tenderness to Palpation of Joints or Extremities Lymphatic: No Cervical, Supraclavicular, or Inguinal Adenopathy Neurological: Cranial nerves II-XII grossly intact, Neuro grossly intact, Motor Exam 5/5 strength throughout Psych/Mental Status: Normal Affect, Appropriate, Alert and oriented to time, place, person, mood and affect Plan is for discharge home. Patient Problems: Active and Suspected Problems Acute renal failure (Acute) Inflammatory bowel disease (Acute) Hyponatremia (Acute) Bacteria in urine (Acute) Abdominal pain (Acute) Tobacco abuse (Acute) - Physical Exam Vitals/I&O's: Vital Signs Temp Pulse Resp BP Pulse Ox 98.0 F 78 16 98/49 L 98 05/28/19 12:40 05/28/19 14:59 05/28/19 12:40 05/28/19 12:40 05/28/19 12:40 Oxygen Flow Rate (L/min) 2 Oxygen Delivery Method Room Air Weight: 146 lb 6.191 oz Body Mass Index (BMI) 20.9 Intake and Output for Last 24 Hours 05/26/19 05/27/19 05/28/19 23:59 23:59 23:59 Intake Total 4785.07 / 4785.07 2746.00 / 2746.00 2405.58 / 2405.58 Output Total 2560 / 2560 1600 / 1600 250 / 250 Balance 2225.07 / 2225.07 1146.00 / 1146.00 2155.58 / 2155.58 Microbiology Past 72 Hours 05/24/19 10:44 Incision/Surgical Site Gram Stain - Final 05/24/19 10:44 Incision/Surgical Site Wound Culture - Final Escherichia coli Enterococcus avium 05/24/19 10:44 Incision/Surgical Site Anaerobic Culture - Preliminary Checking for anaerobes, further studies to follow. 05/20/19 12:00 Blood Culture (Wb) - Anticubital Left Blood Culture - Final No growth in 5 days. 05/20/19 12:00 Blood Culture (Wb) - Anticubital Left Blood Culture - Final No growth in 5 days. Laboratory Results 05/27/19 17:10: Hgb 9.3 L, Hct 27.4 L 05/28/19 05:24: Miscellaneous Test Cancelled 05/28/19 05:24: WBC 8.0, RBC 2.48 L, Hgb 7.4 L, Hct 22.5 L, MCV 90.7, MCH 29.8, MCHC 32.9, RDW Std Deviation 46.3 H, RDW Coeff of Manuela 14.3, Plt Count 176, MPV 9.8, Immature Gran % (Auto) 4.200 H, Neut % (Auto) 63.0, Lymph % (Auto) 21.1, [place] % (Auto) 8.0, Eos % (Auto) 3.6, Baso % (Auto) 0.1, Absolute Neuts (auto) 5.1, Absolute Lymphs (auto) 1.69, Nucleated RBC % 0 05/28/19 14:34: Hgb 7.8 L, Hct 23.3 L Current Medications Acetaminophen (Tylenol) 650 mg PO Q6H PRN PRN PRN Reason: Pain Score 1-10/10 Last Admin: 05/28/19 04:33 Dose: 650 mg Documented by: Piperacillin Sod/Tazobactam (Sod 3.375 gm/ Sodium Chloride) 50 mls @ 12.5 mls/hr IV Q8 TAMEKA Last Infusion: 05/28/19 09:32 Dose: Infused Documented by: Sodium Chloride () 250 mls @ 15 mls/hr IV .[id number] PRN PRN Reason: Saline Flush Last Infusion: 05/28/19 05:25 Dose: 0 mls/hr Documented by: Potassium Chloride/Sodium Chloride () 1,000 mls @ 30 mls/hr IV .[id number] [facility] Last Admin: 05/28/19 09:30 Dose: 30 mls/hr Documented by: Lactated Ringer's () 1,000 mls @ 100 mls/hr IV .Q10H [facility] Last Infusion: 05/28/19 08:40 Dose: Infused Documented by: Melatonin (Melatonin) 3 mg PO QHS PRN PRN PRN Reason: INSOMNIA Morphine Sulfate () 2 - 4 mg IV Q2H PRN PRN PRN Reason: Pain Score 4-10/10 Last Admin: 05/27/19 14:43 Dose: 4 mg Documented by: Morphine Sulfate () 2 - 4 mg IV Q2H PRN PRN PRN Reason: Pain Score 4-10/10 Last Admin: 05/26/19 01:43 Dose: 4 mg Documented by: Nicotine (Nicoderm Cq (Pbkc)) 14 mg TRANSDERM. DAILY [facility] Last Admin: 05/28/19 09:30 Dose: 14 mg Documented by: Ondansetron HCl (Zofran) 4 mg IV Q6H PRN PRN PRN Reason: NAUSEA/VOMITING Last Admin: 05/26/19 10:59 Dose: 4 mg Documented by: Pantoprazole Sodium (Protonix) 40 mg PO BID [facility] Last Admin: 05/28/19 09:29 Dose: 40 mg Documented by: Phenol/Menthol (Chloraseptic (Bkc)) 2 spray MUCOUS MEM Q2H PRN PRN PRN Reason: SORE THROAT Last Admin: 05/20/19 23:39 Dose: 2 sprays Documented by: Potassium Phos/Sodium Phos (Neutra-Phos Packet) 1 packet PO BID [facility] Stop: 05/28/19 22:01 Last Admin: 05/28/19 09:29 Dose: 1 packet Documented by: Sodium Chloride () 10 - 40 ml IV UD PRN PRN Reason: SALINE FLUSH Last Admin: 05/27/19 15:54 Dose: 10 ml Documented by: Sucralfate (Carafate) 1 gm PO 1HR_ACHS [facility] Last Admin: 05/28/19 09:29 Dose: 1 gm Documented by: Throat Lozenges (Cepacol Sore Throat Lozenge) 1 lozenge MUCOUS MEM Q2H PRN PRN PRN Reason: SORE THROAT Last Admin: 05/27/19 02:01 Dose: 1 lozenge Documented by: Discharge Diet: - - Regular diet avoiding alcohol and highly spicy foods Discharge Activity: May Not Drive - No driving for 5 days May shower in (days): 0 - May shower today Weight Bearing Status: Weight bearing as tolerated Additional Activity Instructions:: You may go up and down stairs. You may walk. You may shower daily. Pat the incision dry and cover with dry gauze dressing. Change the dressings daily and as needed for any saturation. Call your doctor if your incision/area has: Continuous Slow Oozing, Sudden Increased Bleeding, Increased Pain/ Swelling, Increased Redness, Foul Smelling Discharge Call your doctor if you observe: Fever of 101 or Higher, Shortness of breath, Dizziness, Fainting spells, - - vomiting of blood, or blood in bowel movement Suture Line Care: Avoid Pulling/Pushing, Avoid Pinching/Bending Home Medications: Medications to take at Discharge Amitriptyline HCl 75 mg PO QHS PRN 05/20/19 Clonazepam [Klonopin] 1 mg PO Q8H PRN 05/20/19 Duloxetine HCl 30 mg PO DAILY 05/20/19 Ferrous Sulfate 325 mg PO TID #90 tab 05/28/19 Pantoprazole Sodium [Protonix] 40 mg PO BID #60 tab 05/28/19 Sucralfate [Carafate] 1 gm PO 1HR_ACHS #60 tab 05/28/19 Following Prescrptions Were Given to Patient: Sucralfate [Carafate] 1 gm PO 1HR_ACHS #60 tab Transmission Status: [id number] Ferrous Sulfate 325 mg PO TID #90 tab Transmission Status: [id number] Pantoprazole Sodium [Protonix] 40 mg PO BID #60 tab Transmission Status: [id number] Primary Care Physician: Care Physician,No Primary [Primary Care Provider] - Please Follow Up With: Silvestre Urias MD - [phone] When: Call to make an appointment to be seen in about 10 days. Please Follow Up With: Darrell Stanton MD When: call office to make appointment to establish PCP relationship Patient Instructions: Peptic Ulcer, Bleeding Peptic Ulcer: Treatment, Appendectomy, What Is Appendicitis?, Surgery for Appendicitis Additional Instructions: [id number] pain medicine like Tylenol or acetaminophen is safest. I do not propose that we will require narcotic pain pills. I strongly advise not utilizing NSAIDs for pain relief which would include ibuprofen or Motrin or Advil or Aleve Antibiotics will not be required at the time of discharge I do recommend utilizing a proton pump inhibitor like omeprazole 40 mg twice daily for at least 1 week and then they diminished to once daily Disposition: Home Minutes spent on discharge:: 50 Patient Condition:: Stable Medical Necessity - Tobacco Use Smoking Status: Current every day smoker Tobacco Use: Cigarettes Meaningful Use Info Meaningful Use Diagnoses (Choose all that apply): None applicable Inpatient E&M: 47505 Disch Hosp
== END 2019-05-28 16:16 | disposition home or self-care (01) | DRG 853 ==
LOC: ED 11:58 → MS3 12:17 → PCU 05-26 18:27
PROVIDERS: Internal Medicine; Surgery; Admitting Provider Family Medicine; Emergency Provider Emergency Medicine; Visit Provider Student in an Organized Health Care Education/Training Program
PROC: 0DTJ0ZZ Resection of Appendix, Open Approach (ICD-10-PCS; CPT 49000; principal; 2019-05-24 09:15)
PROC: 0DJ08ZZ Inspection of Upper Intestinal Tract, Via Natural or Artificial Opening Endoscopic (ICD-10-PCS; CPT 43235; principal; 2019-05-26 12:55)
DX: A41.9 Sepsis, unspecified organism (principal); K35.32 Acute appendicitis with perforation, localized peritonitis, and gangrene, without abscess; K26.4 Chronic or unspecified duodenal ulcer with hemorrhage; N17.9 Acute kidney failure, unspecified; E87.1 Hypo-osmolality and hyponatremia; D62 Acute posthemorrhagic anemia; K56.7 Ileus, unspecified; F43.10 Post-traumatic stress disorder, unspecified; F17.210 Nicotine dependence, cigarettes, uncomplicated; J43.9 Emphysema, unspecified; K44.9 Diaphragmatic hernia without obstruction or gangrene; K21.0 Gastro-esophageal reflux disease with esophagitis; E87.6 Hypokalemia; K52.9 Noninfective gastroenteritis and colitis, unspecified; R82.71 Bacteriuria
CPT/HCPCS: 36415; 74018; 74019; 74176; 74250; 76380; 80048; 80053; 81001; 83630; 83690; 83735; 84100; 85014; 85018; 85025; 85652; 86850; 86900; 86901; 86920; 87040; 87070; 87075; 87077; 87086; 87186; 87205; 87506; 88304; 88305; 88312; 88342; 93005; 97802; 99251; 99284; 99406; J7030; J7040; J7050; J7120; P9016; A4216; G0463; J0610; J1940; J2405; J3490